=== PATIENT | male | born 1995 | race African-American/Black ===

== ENCOUNTER 2019-08-21 01:59 | Emergency (ER) | payer MEDICAID ==
[~2019-08-21] VITALS: Ht 180.3 cm; Wt 158.8 kg
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
[2019-08-21] MEDS ORDERED: ALBUTEROL2.5 MG/3 M INH (02:08)
[2019-08-21] MEDS ORDERED: Ketorolac 60mg Inj IM ONE (02:30)
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
[2019-08-21 03:08] VITALS: BP 138/89
[2019-08-21] MEDS ORDERED: ROBAXIN-500MG ORAL (04:19)
--- NOTE | 2019-08-21 04:20 | NUR ---
ED Nurse Note: pt went for ct via wheelchair
--- NOTE | 2019-08-21 04:58 | NUR ---
ED Nurse Note: pt back from c t via wheelchair
[2019-08-21 05:00] VITALS: BP 141/88
--- NOTE | 2019-08-21 05:00 | NUR ---
ED Nurse Note: pt is calm and sleeping, vss, nad.
--- NOTE | 2019-08-21 05:55 | Diagnostic Imaging Report ---
Indication: Back pain Technique: Continuous helical transaxial imaging of the lumbar spine was obtained. Coronal 2-D reformats were also obtained. Study obtained in a Siemens sensation [address] Total Dose length Product (DLP): 932.[address] Dose Index Volume (CTDIvol): 20.9 mGy Comparison: None Findings: The study is significantly degraded by motion. Subtle nondisplaced fractures may be missed on this study. There is no obvious evidence of an acute fracture or malalignment. Height and configuration of the vertebral bodies and intervertebral discs are grossly within normal limits. The facets are grossly unremarkable. There is no soft tissue swelling. Impression: Negative lumbar spine CT. Significant limitation due to motion. [facility] has communicated the preliminary results to the Emergency Department. Their findings are largely concordant with this report. The CT scanner at [facility] is accredited by the [employer] and the scans are performed using dose optimization techniques as appropriate to a performed exam including Automatic Exposure control.
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
[2019-08-21 06:10] VITALS: BP 141/88
--- NOTE | 2019-08-21 06:10 | NUR ---
ER DISCHARGE NOTE: Patient is cleared to be discharged per ERMD, pt is aox4, on room air, with stable vital signs. pt was given dc and prescription instructions, pt was able to verbalize understanding, pt id band removed without complications. pt is able to ambulate with steady gait. pt took all belongings.
== END 2019-08-21 06:10 | disposition home or self-care (01) ==
LOC: EMR 02:23
DX: S39.012A Strain of muscle, fascia and tendon of lower back, initial encounter (principal); V43.52XA Car driver injured in collision with other type car in traffic accident, initial encounter; Y92.411 Interstate highway as the place of occurrence of the external cause; J45.909 Unspecified asthma, uncomplicated
CPT/HCPCS: 72128; 72131; 96372; Z7502; 99284

== ENCOUNTER 2019-09-08 16:14 | Inpatient (IN) | payer MEDICAID ==
[~2019-09-08] VITALS: Ht 182.9 cm; Wt 158.8 kg
[~2019-09-08 16:14] MED LIST: ALBUTEROL2.5 MG/3 M INH; ROBAXIN-500MG ORAL
--- NOTE | 2019-09-08 16:45 | NUR ---
ED Nurse Note: Pt walked into ED w/ c/ flu like symptoms. Pt has nausea, vomting, diarrhea, body aches, chills, since last night. P states he has vomited over 12x. Pt is alert and orientedx4, ambulatory. Pt is set up on monitor. Pt has not been out of [place] in past month.
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
[2019-09-08 16:55] VITALS: BP 133/87
[2019-09-08] MEDS ORDERED: Metoclopramide 10mg/2ml Inj IVP ONE (17:00)
[2019-09-08] MEDS ORDERED: DiphenhydrAMINE 50mg/ml Inj IVP ONE (17:00)
[2019-09-08 17:58] LABS: EOSINOPHILS % (AUTO) 2.3 % (0.0-3.0); HEMATOCRIT 45.6 % (42.0-52.0); HEMOGLOBIN 14.2 G/DL (14.2-18.0); LYMPHOCYTES % (AUTO) 17.6 % (20.0-45.0); MEAN CORPUSCULAR VOLUME 83 FL (80-99); MONOCYTES % (AUTO) 3.9 % (1.0-10.0); NEUTROPHILS % (AUTO) 75.2 % (45.0-75.0); PLATELET COUNT 108 K/UL (150-450); RED BLOOD COUNT 5.46 M/UL (4.70-6.10); RED CELL DISTRIBUTION WIDTH 14.4 % (11.6-14.8)
[2019-09-08 18:07] LABS: ANION GAP 4 mmol/L (5-15); BLOOD UREA NITROGEN 10 mg/dL (7-18); CALCIUM 8.9 MG/DL (8.5-10.1); CARBON DIOXIDE 33 MMOL/L (21-32); CHLORIDE 102 MMOL/L (98-107); CREATININE 1.2 MG/DL (0.55-1.30); POTASSIUM 4.7 MMOL/L (3.5-5.1); SODIUM 139 MMOL/L (136-145)
[2019-09-08 18:11] LABS: ALANINE AMINOTRANSFERASE 49 U/L (12-78); ALBUMIN 3.4 G/DL (3.4-5.0); ALBUMIN/GLOBULIN RATIO 0.8 (1.0-2.7); ALKALINE PHOSPHATASE 107 U/L (46-116); ASPARTATE AMINO TRANSFERASE 33 U/L (15-37); BILIRUBIN,TOTAL 0.3 MG/DL (0.2-1.0)
[2019-09-08] MEDS ORDERED: Albuterol/Ipratropium 3ml neb HHN ONE (18:30)
[2019-09-08 18:52] LABS: APPEARANCE,URINE CLEAR; BILIRUBIN, URINE NEGATIVE (NEGATIVE); COLOR,URINE PALE YELLOW; GLUCOSE, URINE (UA) NEGATIVE (NEGATIVE); KETONES,URINE NEGATIVE (NEGATIVE); LEUKOCYTE ESTERASE ,URINE NEGATIVE (NEGATIVE); NITRITE,URINE NEGATIVE (NEGATIVE); PH,URINE 6 (4.5-8.0); PROTEIN,URINE 1+ (NEGATIVE); UROBILINOGEN,URINE NORMAL MG/DL (0.0-1.0)
[2019-09-08 19:20] VITALS: BP 130/82
--- NOTE | 2019-09-08 19:30 | NUR ---
ED Nurse Note: Recieved report from am nurse to resume care, pt in bed resting, appears to be sleeping, arouses to tactile stimuli, pt has low saturation at 88, placed on o2 3l n/c, pt complains and takes off equipment, IV site patent, pt denies cp or any pain, will resume care as ordered and closlely monitor.
[2019-09-08 20:00] VITALS: BP 169/101
[2019-09-08] MEDS ORDERED: Solu-MEDROL 125mg Inj IVP ONE (20:30)
[2019-09-08] MEDS: Albuterol ud Inhalation HHN SCH ×4 (20:48→21:15)
[2019-09-08 21:00] VITALS: BP 156/96
--- NOTE | 2019-09-08 21:00 | NUR ---
ED Nurse Note: Pt continues to rest in bed, awakens often, pt remains with low saturation levels, MD aware, pt started on bipap for respiratory distress, will continue to closely monitor.
--- NOTE | 2019-09-08 21:36 | Diagnostic Imaging Report ---
EXAM: XR Chest, 1 View CLINICAL HISTORY: ALOC TECHNIQUE: Frontal view of the chest. COMPARISON: No relevant prior studies available. FINDINGS: Lungs: Reduced lung volumes with accentuation of bronchovascular markings. Pleural space: Unremarkable. No pneumothorax. Heart: Cardiomegaly. Mediastinum: Unremarkable. Bones/joints: No acute fracture. IMPRESSION: Reduced lung volumes with accentuation of bronchovascular markings.
--- NOTE | 2019-09-08 22:10 | NUR ---
ED Nurse Note: Pt continues to be restless and taking off bipap, states he cant tolerate, pt placed on nrb mask instead, remains on cardiac monitoring, IV site intact and patent, pt is awake and alert, speaking to staff, MD spoke with pt about prognosis and plan of care, pt is very upset that MD informed him of intubation, pt stating he does not want to be intubated, pt has no sob but has low sats at times, pt sleeps with mouth open and states he needs cpap machine, pt mother also states same, will continue to monitor and prepare for hospital admission.
[2019-09-08] MEDS ORDERED: Ketamine HCl 50mg/ml 1ml Syr IV ONE ×2 (22:30→23:45)
[2019-09-08 22:50] VITALS: BP 165/103
--- NOTE | 2019-09-08 23:29 | NUR ---
Patients father called , left his phone # [phone] for to call him. aware.
[2019-09-08] MEDS ORDERED: Azithromycin 500 MG in D5W 275 ML IVPB ONE (23:30)
[2019-09-08] MEDS ORDERED: cefTRIAXone 2 GM in D5W 55 ML IVPB ONE (23:30)
[2019-09-08] MEDS ORDERED: Ketamine HCl 50mg/ml 1ml Syr ONE (23:31)
[2019-09-08 23:45] VITALS: BP 156/93
[2019-09-08] MEDS ORDERED: Rocuronium Bromide 50mg/5ml Inj IV ONE (23:45)
--- NOTE | 2019-09-08 23:45 | NUR ---
ED Nurse Note: Pt intubated by MD, immediately started on propofol drip at 30mcg per MD verbal order at bedside, started as ordered per protocol, pt with RASS score of -2, will continue to closely monitor and titrate as needed, pt v/s stable and IV site patent, remains on constant cardiac monitoring and respiratory isolation precautions.
--- NOTE | 2019-09-08 23:45 | NUR ---
ED Nurse Note: Pt has been intubated, et-tube size 7.5 at 24 cm lip line, post x-ray compl Addendum: 09/09/19 at 0602 by ENIGHTINGA ED Nurse Note: Pt has been intubated, et-tube size 7.5, lip line at 24cm, pt tolerating well, o2 sat=99%, pt is also started on IV propofol for sedation, tolerating well, post x-ray completed, also placed second IV line in left AC area, pt is sedated but is awake and oriented, MD spoke with pt in detail before procedure explaining plan of care, pt tolerating well, pt shakes head no to pain, remains on cardiac monitoring, will continue to closely monitor, pt is ICU status and placed on respiratory precautions.
[2019-09-09] VITALS (47 sets, daily range): BP systolic 90–172; BP diastolic 50–125
--- NOTE | 2019-09-09 00:28 | Diagnostic Imaging Report ---
EXAM: XR Chest, 1 View CLINICAL HISTORY: S/P INTUB TECHNIQUE: Frontal view of the chest. COMPARISON: No relevant prior studies available. FINDINGS: Lungs: Pulmonary venous congestion within the lungs. Bilateral heterogeneous airspace opacities which appear somewhat linear in the right upper and lower lung rodríguez. Pleural space: No pleural effusion. No pneumothorax. Heart: Prominent cardiac silhouette likely accentuated by the technique. Tubes, lines and devices: The endotracheal tube terminates approximately 4.3 cm above the rach. IMPRESSION: 1. Appropriately positioned endotracheal tube. 2. Pulmonary venous congestion with bilateral airspace opacities which may represent edema, atelectasis, or infection.
--- NOTE | 2019-09-09 00:45 | NUR ---
ED Nurse Note: Pt remains with oral intubations, tolerating well, also continuing with propofol at 30mcg and tolerating well with RASS score of -2, will continue to closely monitor per protocol, IV site patent, v/s stable, will continue to monitor and prepare for admission.
--- NOTE | 2019-09-09 02:00 | NUR ---
ED Nurse Note: Pt remains on isolation precautions for r/o of negron virus, all swabs and specimens collected and sent per protocol, also sent repeat lactic acid level, pt remains intubated with sedation, IV antibiotics given and no s/s of adverse reaction noted, pt has periods where he is more awake and alert, pt is attempting to communicate verbally, uses sign alphabets and lip reading, pt has ICU bed, will preapre for admission.
--- NOTE | 2019-09-09 02:45 | NUR ---
ED Nurse Note: Propofol continuing at 30mcg, tolerating well, RASS score at -2, v/s stable and IV site patent, will continue to closely monitor and prepare for hospital admission.
--- NOTE | 2019-09-09 03:45 | NUR ---
ED Nurse Note: Placed call to ICU unit for pt admisison, spoke with charge nurse rk whom informed can not take pt now, they were not aware of pt status, charge nurse in ED aware and waiting for return call for admission to floor, pt remains with respiratory isolation precautions.
--- NOTE | 2019-09-09 04:39 | NUR ---
Patients mother called, speaking with .
--- NOTE | 2019-09-09 04:45 | NUR ---
ED Nurse Note: RASS score remains at -2, pt tolerating drip well and remains intubated, v/s stable and o2 sat, will continue with close, continuous monitoring, pt IV site is intact and patent, no swelling or s/s of infiltration noted.
--- NOTE | 2019-09-09 05:45 | NUR ---
ED Nurse Note: No acute changes or increased distress, propofol infusing at 30mcg and pt tolerating well, IV site patent and v/s stable, nad or changes noted, will continue to monitor.
--- NOTE | 2019-09-09 06:00 | NUR ---
ED Nurse Note: Pt in bed more awake and alert, pt attempting to get up and pulled out IV line, pt is communication he does not want tube, explained to pt reason and prognosis and plan of care, pt became very agitated and pulled out IV line, pt IV propofol dose increased per protocol, pt resting quietly, will continue to closely montior and remain on respiratory isolation precautions.
--- NOTE | 2019-09-09 07:19 | NUR ---
ED Nurse Note: Pt taken to floor unit for admission, no changes or distress noted, pt remains intubated, all belonging with pt, nad noted during pt transport.
--- NOTE | 2019-09-09 07:40 | NUR ---
HAND-OFF: Received report from SERENA Mcclure from ER, then given report to SERENA Cat - ICU oncoming nurse.
--- NOTE | 2019-09-09 08:00 | NUR ---
NURSE NOTES: Received report on new admission from Matt LYONS. Pt was admitted/transferred from ER via [facility] to ICU, while on Propofol drip 30mcg/kg/min. Pt is restless, agitated, noncompliant, attempting to reach/pull out ET tube. Bilateral soft wrist restraints are placed on pt to prevent self extubation. Pt is orally intubated, ETT 7.5 at 24cm at right lipline with vent settings AC18, VT600, Peep 5.0, FIO2 35% at 95% with diminished lung sounds. desk monitor displays ST, with heart rate fluctuating from 110-120. Temp 99.2F axillary. Propofol drip is infusing via peripheral IV access on right AC #18G. Abdomen is large, round, soft, nontender to touch with hypoactive bowel sounds. Howard catheter is present, draining cloudy, dark yellow urine. Skin is intact. Pt's belonging's list was checked and signed by Matt RN, along with CONVERTER OPERATOR. Bed is locked, HOB at 30 degrees, three side rails up, and call light placed within easy reach. Will contact MD for new admission orders and follow plan of care.
[2019-09-09] MEDS: Pantoprazole Inj IVP SCH (09:37)
[2019-09-09] MEDS: Heparin 5000 units/ml inj SUBQ SCH ×2 (09:38→20:38)
--- NOTE | 2019-09-09 10:00 | NUR ---
NURSE NOTES: Pt arrived to ICU with Propofol drip that was started in ER and bottle finished at 0829. At 0829, 1st replacement bottle of propofol was removed from the pyxis and was scanned late at 0939 due to scanner inside pt's room not working, (pt is on strict COVID-19 isolation). Official order was received from Dr Gardner to maintain pt on Propofol until further notice from MD. Triglyceride levels will be monitored. Additional admission orders were received from Jj, per Dr Chen, who referred requests to Dr Gardner. Pt was also seen by Dr Kirby at bedside. Orders were received to repeat ABGs and maintain AC vent settings from ER until further notice.
--- NOTE | 2019-09-09 11:00 | NUR ---
NURSE NOTES: Family of the patient called however were not as the EC on the patient. Mother insisted getting on the EC with dad and grandmother. Patient was woken up to confirm that he wanted to give consent to his family to speak on his medical condition. Patient was asked several times and was AAO x3. Patient gave consent to mother, father and grandmother. Noted on the chart.
--- NOTE | 2019-09-09 11:30 | Pulmonolgy Critical Care Note ---
Critical Care - Asmt/Plan Assessment/Plan: respiratory failure possible developing ARDS possible COVID 19 lymphopenia sinus tachycardia + tox screen PLAN vent support follow up ABG consider steroids IV antibiotics per ID d/w ID and will adjust add zithromax for now strict isolation critical Respiratory: CXR, ABG Cardiac: continue to monitor HR/BP Renal: F/U I&O Infectious Disease: check cultures, continue antibiotics Endocrine: monitor blood sugar Disposition: keep in ICU Time Spent (Minutes): 40 Discussed with: nurses, consultants Critical Care - Objective Last 24 Hour Vital Signs Date Time Temp Pulse Resp B/P (MAP) Pulse Ox O2 Delivery O2 Flow Rate FiO2 09/09/19 09:39 16 140/87 Mechanical Ventilator 35 09/09/19 09:00 115 18 35 09/09/19 07:13 114 20 96 Mechanical Ventilator 35 09/09/19 07:13 114 25 35 09/09/19 07:00 100.0 109 19 158/92 98 Bi-pap 35 09/09/19 06:00 100.0 109 19 158/92 98 Bi-pap 35 09/09/19 05:57 25 149/99 Bi-pap 35 09/09/19 05:34 125 25 35 09/09/19 02:00 98.8 104 16 159/91 95 Mechanical Ventilator 35 09/09/19 01:59 122 24 35 09/09/19 00:00 100.0 97 28 149/99 95 Bi-pap 35 09/08/19 23:54 136 28 35 09/08/19 23:45 24 149/99 Bi-pap 35 09/08/19 22:50 98.8 92 21 165/103 99 30 09/08/19 21:02 105 22 99 Bi-Pap 30 111 22 95 09/08/19 21:00 100.0 97 20 156/96 97 Bi-pap 30 09/08/19 20:55 105 22 99 Bi-Pap 30 108 21 96 09/08/19 20:37 108 22 94 30 09/08/19 20:00 100.2 106 24 169/101 98 Room Air 21 09/08/19 19:30 100.0 09/08/19 19:20 98.8 100 20 130/82 98 Room Air 09/08/19 19:10 105 22 99 Room Air 21 107 24 92 09/08/19 16:55 101 18 Room Air 99 09/08/19 16:55 98.8 101 18 133/87 99 Room Air 09/08/19 16:28 98.8 105 17 130/89 (103) Room Air Objective: WDWN intubated reduced breath sounds bilaterally without rhonchi or wheeze [id number] tachy without MRG NABS nontender no HSM no CCE sedated Micro: Microbiology Date/Time Source Procedure Growth Status 09/08/19 20:30 Nose - Final Complete 09/08/19 20:30 Nose - Final Complete 09/09/19 01:15 Rectum Received Accucheck: 108 Critical Care - Subjective ROS Limited/Unobtainable: Yes Interval Events: admitted via ER COVID19 isolation Condition: critical EKG Rhythm: Sinus Tachycardia FI02: 35 Vent Support Breath Rate: 18 Vent Support Mode: AC Vent Tidal Volume: 600 Sputum Amount: Small PEEP: 5.0 PIP: 34 I&O: Intake and Output 09/08/19 09/09/19 19:00 07:00 Intake Total 0 ml Balance 0 ml Intake Oral 0 ml Subjective: COVERAGE FOR DR ANDERSON CXR: Bilateral diffuse infiltrates ET-Tube: 7.0 ET Position: 24 Peter Kirby MD Sep 09, 2019 11:30
--- NOTE | 2019-09-09 12:37 | NUR ---
NURSE NOTES: Second bottle of propofol was removed from the pyxis and scanned, to replace the 1st finished bottle. Pt's temp is now 99.8F axillary. ABGs were drawn and results reported to Dr Kirby. Pt's mother visited ICU, and requested to take home pt's car keys and brown coin wallet.
--- NOTE | 2019-09-09 12:45 | Infectious Diseases Prog Note ---
Assessment/Plan Assessment/Plan ID consult was dictated Subjective Allergies: Coded Allergies: No Known Allergies (Unverified , 08/21/19) Objective Vital Signs Last 24 Hour Vital Signs Date Time Temp Pulse Resp B/P (MAP) Pulse Ox O2 Delivery O2 Flow Rate FiO2 09/09/19 12:37 18 139/111 Mechanical Ventilator 45 09/09/19 12:00 35 09/09/19 11:05 111 18 35 09/09/19 09:39 16 140/87 Mechanical Ventilator 35 09/09/19 09:00 115 18 35 09/09/19 08:00 35 09/09/19 07:13 114 20 96 Mechanical Ventilator 35 09/09/19 07:13 114 25 35 09/09/19 07:00 100.0 109 19 158/92 98 Bi-pap 35 09/09/19 07:00 35 09/09/19 06:00 100.0 109 19 158/92 98 Bi-pap 35 09/09/19 05:57 25 149/99 Bi-pap 35 09/09/19 05:34 125 25 35 09/09/19 02:00 98.8 104 16 159/91 95 Mechanical Ventilator 35 09/09/19 01:59 122 24 35 09/09/19 00:00 100.0 97 28 149/99 95 Bi-pap 35 09/08/19 23:54 136 28 35 09/08/19 23:45 24 149/99 Bi-pap 35 09/08/19 22:50 98.8 92 21 165/103 99 30 09/08/19 21:02 105 22 99 Bi-Pap 30 111 22 95 09/08/19 21:00 100.0 97 20 156/96 97 Bi-pap 30 09/08/19 20:55 105 22 99 Bi-Pap 30 108 21 96 09/08/19 20:37 108 22 94 30 09/08/19 20:00 100.2 106 24 169/101 98 Room Air 21 09/08/19 19:30 100.0 09/08/19 19:20 98.8 100 20 130/82 98 Room Air 09/08/19 19:10 105 22 99 Room Air 21 107 24 92 09/08/19 16:55 101 18 Room Air 99 09/08/19 16:55 98.8 101 18 133/87 99 Room Air 3/14/20 16:28 98.8 105 17 130/89 (103) Room Air Height (Feet): 6 Weight (Pounds): 358 Microbiology Date/Time Source Procedure Growth Status 09/08/19 20:30 Nose - Final Complete 09/08/19 20:30 Nose - Final Complete 09/09/19 01:15 Rectum Received Laboratory Tests Test 09/08/19 17:45 09/08/19 18:40 09/08/19 22:10 09/09/19 00:15 White Blood Count 14.0 K/UL (4.8-10.8) H Red Blood Count 5.46 M/UL (4.70-6.10) Hemoglobin 14.2 G/DL (14.2-18.0) Hematocrit 45.6 % (42.0-52.0) Mean Corpuscular Volume 83 FL (80-99) Mean Corpuscular Hemoglobin 26.0 PG (27.0-31.0) L Mean Corpuscular Hemoglobin Concent 31.2 G/DL (32.0-36.0) L Red Cell Distribution Width 14.4 % (11.6-14.8) Platelet Count 108 K/UL (150-450) L Mean Platelet Volume 10.3 FL (6.5-10.1) H Neutrophils (%) (Auto) 75.2 % (45.0-75.0) H Lymphocytes (%) (Auto) 17.6 % (20.0-45.0) L Monocytes (%) (Auto) 3.9 % (1.0-10.0) Eosinophils (%) (Auto) 2.3 % (0.0-3.0) Basophils (%) (Auto) 1.0 % (0.0-2.0) Sodium Level 139 MMOL/L (136-145) Potassium Level 4.7 MMOL/L (3.5-5.1) Chloride Level 102 MMOL/L (98-107) Carbon Dioxide Level 33 MMOL/L (21-32) H Anion Gap 4 mmol/L (5-15) L Blood Urea Nitrogen 10 mg/dL (7-18) Creatinine 1.2 MG/DL (0.55-1.30) Estimat Glomerular Filtration Rate > 60 mL/min (>60) Glucose Level 126 MG/DL (74-106) H Calcium Level 8.9 MG/DL (8.5-10.1) Magnesium Level 2.1 MG/DL (1.8-2.4) Total Bilirubin 0.3 MG/DL (0.2-1.0) Aspartate Amino Transf (AST/SGOT) 33 U/L (15-37) Alanine Aminotransferase (ALT/SGPT) 49 U/L (12-78) Alkaline Phosphatase 107 U/L (46-116) Total Protein 7.8 G/DL (6.4-8.2) Albumin 3.4 G/DL (3.4-5.0) Globulin 4.4 g/dL Albumin/Globulin Ratio 0.8 (1.0-2.7) L Triglycerides Level 86 MG/DL (30-150) Lipase 108 U/L (73-393) Urine Color Pale yellow Urine Appearance Clear Urine pH 6 (4.5-8.0) Urine Specific [place] 1.020 (1.005-1.035) Urine Protein 1+ (NEGATIVE) H Urine Glucose (UA) Negative (NEGATIVE) Urine Ketones Negative (NEGATIVE) Urine Blood Negative (NEGATIVE) Urine Nitrite Negative (NEGATIVE) Urine Bilirubin Negative (NEGATIVE) Urine Urobilinogen Normal MG/DL (0.0-1.0) Urine Leukocyte Esterase Negative (NEGATIVE) Urine RBC 0-2 /HPF (0 - 0) H Urine WBC 0-2 /HPF (0 - 0) Urine Squamous Epithelial Cells Few /LPF (NONE/OCC) Urine Bacteria Few /HPF (NONE) Urine Opiates Screen Negative (NEGATIVE) Urine Barbiturates Screen Negative (NEGATIVE) Phencyclidine (PCP) Screen Negative (NEGATIVE) Urine Amphetamines Screen Positive (NEGATIVE) H Urine Benzodiazepines Screen Negative (NEGATIVE) Urine Cocaine Screen Positive (NEGATIVE) H Urine Marijuana (THC) Screen Positive (NEGATIVE) H Arterial Blood pH 7.173 (7.350-7.450) Arterial Blood Partial Pressure CO2 92.4 mmHg (35.0-45.0) *H Arterial Blood Partial Pressure O2 71.1 mmHg (75.0-100.0) L Arterial Blood HCO3 33.2 mmol/L (22.0-26.0) H Arterial Blood Oxygen Saturation 90.7 % (95-100) L Arterial Blood Base Excess 1.4 (-2-2) Jorge Test Positive Lactic Acid Level 2.10 mmol/L (0.4-2.0) H Test 09/09/19 00:20 09/09/19 01:30 09/09/19 12:16 Lactic Acid Level 2.00 mmol/L (0.66-2.22) RSV Nasal Swab Pending Arterial Blood pH 7.370 (7.350-7.450) Arterial Blood Partial Pressure CO2 55.9 mmHg (35.0-45.0) *H Arterial Blood Partial Pressure O2 57.5 mmHg (75.0-100.0) L Arterial Blood HCO3 31.6 mmol/L (22.0-26.0) H Arterial Blood Oxygen Saturation 90.4 % (95-100) L Arterial Blood Base Excess 4.7 (-2-2) H Jorge Test Positive Current Medications Medications (Trade) Dose Ordered Sig/Tamara Route PRN Reason Start Time Stop Time Status Last Admin Dose Admin Albuterol Sulfate (Proventil) 5 mg Q15M HHN 09/08/19 20:30 09/13/19 20:29 09/08/19 21:02 Ceftriaxone Sodium 1 gm/ Dextrose 55 ml @ 110 mls/hr Q24H IVPB 09/09/19 23:00 09/16/19 22:59 Heparin Sodium (Porcine) (Heparin 5000 units/ml) 5,000 units EVERY 12 HOURS SUBQ 09/09/19 09:00 10/24/19 08:59 09/09/19 09:38 Morphine Sulfate (Morphine Sulfate) 4 mg Q4H PRN IVP PAIN 4-10 09/09/19 09:00 09/16/19 08:59 Ondansetron HCl (Zofran) 4 mg Q6H PRN IVP Nausea & Vomiting 09/09/19 09:00 10/09/19 08:59 Pantoprazole (Protonix) 40 mg DAILY IVP 09/09/19 09:30 10/09/19 09:29 09/09/19 09:37 Propofol 100 ml @ 0 mls/hr Q24H IV 09/09/19 09:00 09/11/19 08:59 09/09/19 12:37 Sodium Chloride 1,000 ml @ 100 mls/hr Q10H IV 09/09/19 09:30 10/09/19 09:29 09/09/19 09:40 Marty Rosales MD Sep 09, 2019 12:45
--- NOTE | 2019-09-09 13:00 | NUR ---
NURSE NOTES: Propofol drip was titrated up to 50mcg/kg/min to maintain RASS score of -2. Pt was noted to be very agitated. Pt ripped his bilateral soft wrist restraints off, and attempted to reach for ET tube.
[2019-09-09] MEDS ORDERED: NS 275ml ONE (14:06)
[2019-09-09] MEDS ORDERED: Tubing IV Secondary IV ONE (14:06)
--- NOTE | 2019-09-09 14:20 | NUR ---
NURSE NOTES: Contacted Dr Kirby with the ABG results. Per MD wants FIO2 titrated to 40%. Orders have been placed for new vent settings.
[2019-09-09] MEDS: Morphine Sulfate 4mg/ml Inj (IV USE ONLY) IVP PRN (14:47)
--- NOTE | 2019-09-09 14:48 | NUR ---
NURSE NOTES: Pt was administered Morphine 4mg IVP per PRN order for severe pain, as he is noted to have facial grimacing, clenched fists, and ST on cardiac catheterization technologist. Will reassess.
[2019-09-09] MEDS ORDERED: Lidocaine 1% 10mg/ml/Epi 0.005mg/ml 30ml vial INJ ONE (15:04)
--- NOTE | 2019-09-09 15:26 | History & Physical ---
History of Present Illness General Date patient seen: Sep 09, 2019 Reason for Hospitalization: acute respiratory failure Present Illness HPI Patient is a 24 year old, morbidly obese, KRISTIAN, asthma, male presenting with generalized weakness, nausea, vomiting, respiratory failure. 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 Allergies: Coded Allergies: No Known Allergies (Unverified , 08/21/19) Medication History Scheduled Methocarbamol* (Robaxin-500*), 500 MG ORAL TID Scheduled PRN Albuterol Sulfate* (Albuterol Sulfate Hhn*), 3 ML INH Q6H PRN for Shortness of Breath, (Reported) Patient History Healthcare decision maker Resuscitation status Advanced Directive on File Review of Systems Review of Symptoms ROS unable to be obtained, patient intubated, sedatedd Physical Exam Physical Exam General appearance: intubated, sedated, morbidly obese Head: AT, NC. Throat: ET Tube in place. Neck: supple, symmetrical, trachea midline, no adenopathy, thyroid: not enlarged, symmetric, no tenderness/mass/nodules, no carotid bruit and no JVD Lungs: coarse breath sounds anteriorly Heart: regular rate and rhythm, S1, S2 normal, no murmur, click, rub or gallop Abdomen: soft, non-tender. Bowel sounds normal. No masses, no organomegaly Extremities: extremities normal, atraumatic, no cyanosis or edema Pulses: 2+ and symmetric Skin: Skin color, texture, turgor normal. No rashes or lesions Neurologic: sedated, opens eyes to stimuli . Last 24 Hour Vital Signs Date Time Temp Pulse Resp B/P (MAP) Pulse Ox O2 Delivery O2 Flow Rate FiO2 09/09/19 15:02 116 18 35 09/09/19 14:48 18 139/111 Mechanical Ventilator 45 09/09/19 13:00 121 24 35 09/09/19 12:37 18 139/111 Mechanical Ventilator 45 09/09/19 12:00 122 16 144/125 (131) 93 09/09/19 12:00 35 09/09/19 11:30 119 12 152/95 (114) 95 09/09/19 11:05 111 18 35 09/09/19 11:00 113 18 151/101 (118) 92 09/09/19 10:30 115 18 155/123 (134) 95 09/09/19 10:00 117 17 144/96 (112) 96 09/09/19 09:39 16 140/87 Mechanical Ventilator 35 09/09/19 09:00 121 17 144/91 (108) 95 09/09/19 09:00 115 18 35 09/09/19 08:30 116 12 172/105 (127) 92 09/09/19 08:00 35 09/09/19 08:00 116 12 152/94 (113) 92 09/09/19 07:30 111 18 166/87 (113) 94 09/09/19 07:13 114 20 96 Mechanical Ventilator 35 09/09/19 07:13 114 25 35 09/09/19 07:00 99.2 114 22 166/87 (113) 94 09/09/19 07:00 100.0 109 19 158/92 98 Bi-pap 35 09/09/19 07:00 35 09/09/19 06:00 100.0 109 19 158/92 98 Bi-pap 35 09/09/19 05:57 25 149/99 Bi-pap 35 09/09/19 05:34 125 25 35 09/09/19 02:00 98.8 104 16 159/91 95 Mechanical Ventilator 35 09/09/19 01:59 122 24 35 09/09/19 00:00 100.0 97 28 149/99 95 Bi-pap 35 09/08/19 23:54 136 28 35 09/08/19 23:45 24 149/99 Bi-pap 35 09/08/19 22:50 98.8 92 21 165/103 99 30 09/08/19 21:02 105 22 99 Bi-Pap 30 111 22 95 09/08/19 21:00 100.0 97 20 156/96 97 Bi-pap 30 09/08/19 20:55 105 22 99 Bi-Pap 30 108 21 96 09/08/19 20:37 108 22 94 30 09/08/19 20:00 100.2 106 24 169/101 98 Room Air 21 09/08/19 19:30 100.0 09/08/19 19:20 98.8 100 20 130/82 98 Room Air 09/08/19 19:10 105 22 99 Room Air 21 107 24 92 09/08/19 16:55 101 18 Room Air 99 09/08/19 16:55 98.8 101 18 133/87 99 Room Air 09/08/19 16:28 98.8 105 17 130/89 (103) Room Air Intake and Output 09/08/19 09/09/19 19:00 07:00 Intake Total 0 ml Balance 0 ml Intake Oral 0 ml Laboratory Tests Test 09/08/19 17:45 09/08/19 18:40 09/08/19 22:10 09/09/19 00:15 White Blood Count 14.0 K/UL (4.8-10.8) H Red Blood Count 5.46 M/UL (4.70-6.10) Hemoglobin 14.2 G/DL (14.2-18.0) Hematocrit 45.6 % (42.0-52.0) Mean Corpuscular Volume 83 FL (80-99) Mean Corpuscular Hemoglobin 26.0 PG (27.0-31.0) L Mean Corpuscular Hemoglobin Concent 31.2 G/DL (32.0-36.0) L Red Cell Distribution Width 14.4 % (11.6-14.8) Platelet Count 108 K/UL (150-450) L Mean Platelet Volume 10.3 FL (6.5-10.1) H Neutrophils (%) (Auto) 75.2 % (45.0-75.0) H Lymphocytes (%) (Auto) 17.6 % (20.0-45.0) L Monocytes (%) (Auto) 3.9 % (1.0-10.0) Eosinophils (%) (Auto) 2.3 % (0.0-3.0) Basophils (%) (Auto) 1.0 % (0.0-2.0) Sodium Level 139 MMOL/L (136-145) Potassium Level 4.7 MMOL/L (3.5-5.1) Chloride Level 102 MMOL/L (98-107) Carbon Dioxide Level 33 MMOL/L (21-32) H Anion Gap 4 mmol/L (5-15) L Blood Urea Nitrogen 10 mg/dL (7-18) Creatinine 1.2 MG/DL (0.55-1.30) Estimat Glomerular Filtration Rate > 60 mL/min (>60) Glucose Level 126 MG/DL (74-106) H Calcium Level 8.9 MG/DL (8.5-10.1) Magnesium Level 2.1 MG/DL (1.8-2.4) Total Bilirubin 0.3 MG/DL (0.2-1.0) Aspartate Amino Transf (AST/SGOT) 33 U/L (15-37) Alanine Aminotransferase (ALT/SGPT) 49 U/L (12-78) Alkaline Phosphatase 107 U/L (46-116) Total Protein 7.8 G/DL (6.4-8.2) Albumin 3.4 G/DL (3.4-5.0) Globulin 4.4 g/dL Albumin/Globulin Ratio 0.8 (1.0-2.7) L Triglycerides Level 86 MG/DL (30-150) Lipase 108 U/L (73-393) Urine Color Pale yellow Urine Appearance Clear Urine pH 6 (4.5-8.0) Urine Specific [place] 1.020 (1.005-1.035) Urine Protein 1+ (NEGATIVE) H Urine Glucose (UA) Negative (NEGATIVE) Urine Ketones Negative (NEGATIVE) Urine Blood Negative (NEGATIVE) Urine Nitrite Negative (NEGATIVE) Urine Bilirubin Negative (NEGATIVE) Urine Urobilinogen Normal MG/DL (0.0-1.0) Urine Leukocyte Esterase Negative (NEGATIVE) Urine RBC 0-2 /HPF (0 - 0) H Urine WBC 0-2 /HPF (0 - 0) Urine Squamous Epithelial Cells Few /LPF (NONE/OCC) Urine Bacteria Few /HPF (NONE) Urine Opiates Screen Negative (NEGATIVE) Urine Barbiturates Screen Negative (NEGATIVE) Phencyclidine (PCP) Screen Negative (NEGATIVE) Urine Amphetamines Screen Positive (NEGATIVE) H Urine Benzodiazepines Screen Negative (NEGATIVE) Urine Cocaine Screen Positive (NEGATIVE) H Urine Marijuana (THC) Screen Positive (NEGATIVE) H Arterial Blood pH 7.173 (7.350-7.450) Arterial Blood Partial Pressure CO2 92.4 mmHg (35.0-45.0) *H Arterial Blood Partial Pressure O2 71.1 mmHg (75.0-100.0) L Arterial Blood HCO3 33.2 mmol/L (22.0-26.0) H Arterial Blood Oxygen Saturation 90.7 % (95-100) L Arterial Blood Base Excess 1.4 (-2-2) Jorge Test Positive Lactic Acid Level 2.10 mmol/L (0.4-2.0) H Test 09/09/19 00:20 09/09/19 01:30 09/09/19 12:16 Lactic Acid Level 2.00 mmol/L (0.66-2.22) RSV Nasal Swab Pending Arterial Blood pH 7.370 (7.350-7.450) Arterial Blood Partial Pressure CO2 55.9 mmHg (35.0-45.0) *H Arterial Blood Partial Pressure O2 57.5 mmHg (75.0-100.0) L Arterial Blood HCO3 31.6 mmol/L (22.0-26.0) H Arterial Blood Oxygen Saturation 90.4 % (95-100) L Arterial Blood Base Excess 4.7 (-2-2) H Jorge Test Positive Microbiology Date/Time Source Procedure Growth Status 09/08/19 20:30 Nose - Final Complete 09/08/19 20:30 Nose - Final Complete 09/09/19 01:15 Rectum Received Height (Feet): 6 Weight (Pounds): 358 Medications Current Medications Medications (Trade) Dose Ordered Sig/Tamara Route PRN Reason Start Time Stop Time Status Last Admin Dose Admin Ceftriaxone Sodium 1 gm/ Dextrose 55 ml @ 110 mls/hr Q24H IVPB 09/09/19 23:00 09/16/19 22:59 Heparin Sodium (Porcine) (Heparin 5000 units/ml) 5,000 units EVERY 12 HOURS SUBQ 09/09/19 09:00 10/24/19 08:59 09/09/19 09:38 Morphine Sulfate (Morphine Sulfate) 4 mg Q4H PRN IVP PAIN 4-10 09/09/19 09:00 09/16/19 08:59 09/09/19 14:47 Ondansetron HCl (Zofran) 4 mg Q6H PRN IVP Nausea & Vomiting 09/09/19 09:00 10/09/19 08:59 Pantoprazole (Protonix) 40 mg DAILY IVP 09/09/19 09:30 10/09/19 09:29 09/09/19 09:37 Propofol 100 ml @ 0 mls/hr Q24H IV 09/09/19 09:00 09/11/19 08:59 09/09/19 14:48 Sodium Chloride 1,000 ml @ 100 mls/hr Q10H IV 09/09/19 09:30 10/09/19 09:29 09/09/19 09:40 Assessment/Plan Status: stable, not improved, unchanged Diagnosis Seltzer I: Mr. Fournier is a 24 year old M w/ hx of asthma, morbid obesity, KRISTIAN, presenting with weakness, respiratory failure, intubated. #Acute hypoxic, hypercapneic respiratory failure, requiring intubation. #COVID-19 rule out. #ARDS #Sepsis -Intubated. Continue ventilator therapy. -Propofol gtt for sedation. -Wean off vent settings as tolerated -Appreciate pulmonology recommendations. -ABG initially 7.173 with pCO2 of 92.4, O2 of 71.1, improved to 7.37/55.9/57.5 with ventilator. -Ceftriaxone/azithromycin (09/07 -) -Appreciate ID recs. -Steroids. -f/u Covid testing. Isolation in the meantime. #Morbid obesity #KRISTIAN -CPAP outpatient. -Weight loss counseling. #Substance abuse Amphetamine, cocaine, THC positive on urine. -counseling. I spent 76 minutes on this patient's case, and 36 mins dedicated to critical care. Critical Care Services performed include: Telemetry review Hemodynamic measurement interpretation Lbaoratory neptali review and interpretation Radiology image review and interpretation Interpretation of ABG's Review, management of ventilator settings Discussion of patient's care with ICU team, ICU nursing staff and consulting services. [facility] Hospital declaration INPATIENT level of care is warranted for this patient because patient is a 89 year old with who presents with suspicion of . I have a high level of concern because . Patient is at high risk for . Plan of care/treatment include . Patient care is expected to be greater than 2 midnights. OBSERVATION level of care is warranted for this patient. Patient is a 89 year old with who presents with . Patient will be admitted for 1 midnight, but if additional night(s) is/are necessary, patient will be converted to inpatient status for the entire hospitalization Disposition: Once the patient is stable to leave the hospital, I anticipate the patient will likely be discharged to the following environment: Estimated discharge date: I spent 70 minutes on this patient's case, and minutes was dedicated to counseling and/or care coordination. MIPS (Merit-based Incentive Payment System) Applicable CPT: 29428, 23728 CHECK ALL THAT ARE MET: Measure #5 (CHF): All ages. Prescribe GOLDIE/ARB upon discharge for patients with left ventricular systolic dysfunction. If not, the reason is clearly documented in the medical chart. Measure #8 (CHF): All ages. Prescribe a beta christiana upon discharge for patients with left ventricular systolic dysfunction. If not, the reason is clearly documented in the medical chart. Measure #47 Advance care plan or surrogate decision maker documented in the medical record. Measure #130 The provider has documented, updated, or reviewed the patients current medication list and has documented it in the patients note. Measure #374 (All): Send report to referring provider. Measure #407(Sepsis due to MSSA bacteremia): Age 18+ Patient treated with a beta-lactam antibiotic (Nafcillin, Oxacillin or Cefazolin) as definitive therapy. MEDICAL COMPLEXITY High complexity medical decision making (need 2/3 categories) Problem - need 4 points Acute/new problem with new plan for workup (4 points, 1 max) Acute/new problem without additional workup (3 points, 1 max) Unstable chronic problem actively being managed (2 point each, 2 max) Stable chronic problem actively being managed (1 point each, 2 max) Self-limited/transient process (constipation, muscle ache, etc) (1 point each , 2 max) Data - need 4 points Reviewed labs/imaging studies (1 points, 2 max) Independent review of imaging (EKG, xrays, etc) (2 points, 2 max) Discussed case with consult/other MD/RN (2 points, 2 max) High Risk - qualify if have one of the following: Severe exacerbation of acute problem, acute mental status change, IV narcotics , monitoring drug levels (vancomycin, INR, tacrolimus etc) Aidan Chen MD Sep 09, 2019 15:26
[2019-09-09] MEDS ORDERED: Lidocaine 1% Plain 30 ml INJ ONE (15:30)
--- NOTE | 2019-09-09 15:30 | NUR ---
NURSE NOTES: VS remain stable post Morphine administration per PRN order. Pt is resting comfortably, at -2 light sedation per RASS score, while maintained on Propofol at 40mcg/kg/min.
--- NOTE | 2019-09-09 16:17 | Emergency Room Report ---
Physical Exam Call to start CVP. Last 24 Hour Vital Signs Date Time Temp Pulse Resp B/P (MAP) Pulse Ox O2 Delivery O2 Flow Rate FiO2 09/09/19 15:02 116 18 35 09/09/19 14:48 18 139/111 Mechanical Ventilator 45 09/09/19 13:00 121 24 35 09/09/19 12:37 18 139/111 Mechanical Ventilator 45 09/09/19 12:00 122 16 144/125 (131) 93 09/09/19 12:00 35 09/09/19 11:30 119 12 152/95 (114) 95 09/09/19 11:05 111 18 35 09/09/19 11:00 113 18 151/101 (118) 92 09/09/19 10:30 115 18 155/123 (134) 95 09/09/19 10:00 117 17 144/96 (112) 96 09/09/19 09:39 16 140/87 Mechanical Ventilator 35 09/09/19 09:00 121 17 144/91 (108) 95 09/09/19 09:00 115 18 35 09/09/19 08:30 116 12 172/105 (127) 92 09/09/19 08:00 35 09/09/19 08:00 116 12 152/94 (113) 92 09/09/19 07:30 111 18 166/87 (113) 94 09/09/19 07:13 114 20 96 Mechanical Ventilator 35 09/09/19 07:13 114 25 35 09/09/19 07:00 99.2 114 22 166/87 (113) 94 09/09/19 07:00 100.0 109 19 158/92 98 Bi-pap 35 09/09/19 07:00 35 09/09/19 06:00 100.0 109 19 158/92 98 Bi-pap 35 09/09/19 05:57 25 149/99 Bi-pap 35 09/09/19 05:34 125 25 35 09/09/19 02:00 98.8 104 16 159/91 95 Mechanical Ventilator 35 09/09/19 01:59 122 24 35 09/09/19 00:00 100.0 97 28 149/99 95 Bi-pap 35 09/08/19 23:54 136 28 35 09/08/19 23:45 24 149/99 Bi-pap 35 09/08/19 22:50 98.8 92 21 165/103 99 30 09/08/19 21:02 105 22 99 Bi-Pap 30 111 22 95 09/08/19 21:00 100.0 97 20 156/96 97 Bi-pap 30 09/08/19 20:55 105 22 99 Bi-Pap 30 108 21 96 09/08/19 20:37 108 22 94 30 09/08/19 20:00 100.2 106 24 169/101 98 Room Air 21 09/08/19 19:30 100.0 09/08/19 19:20 98.8 100 20 130/82 98 Room Air 09/08/19 19:10 105 22 99 Room Air 21 107 24 92 09/08/19 16:55 101 18 Room Air 99 09/08/19 16:55 98.8 101 18 133/87 99 Room Air 09/08/19 16:28 98.8 105 17 130/89 (103) Room Air Sp02 EP Interpretation: reviewed, normal General Appearance: obese, other - Intubated but awake and conversant with one hand to sign language Head: normocephalic, atraumatic Eyes: bilateral eye normal inspection, bilateral eye PERRL, bilateral eye EOMI ENT: moist mucus membranes, other - ET tube with leak Neck: full range of motion, supple Respiratory: crackles Cardiovascular #1: no edema, tachycardia Gastrointestinal: soft, decreased bowel sounds, overweight Genitourinary: other - Howard Musculoskeletal: other - Moves all 4 Neurologic: alert, normal inspection Psychiatric: mood/affect normal Skin: no rash, warm/dry, other - Recent tattoos Critical Care Time Critical Care Time Time: 30 minutes of bedside evaluation and treatment excludes procedures Procedures: CVP Reason for Critical care: CVP and need for don and duff Possible Complications: Hypotension, sepsis, metabolic acidosis, prevention of end organ injury Interventions: don/duff CVP Course: Extra time required for don and duff - see procedure note for CVP Consultations: PMD, tax staff accountant Result: Patient was improved but critical Performed by: Dr. Irene Central Line Central Line : Consent: Verbal Central Line Lumen: triple Maximal Sterile Barrier Tech: yes cap, yes mask, yes sterile gown, yes sterile gloves, yes large sterile sheet, yes hand hygiene, yes chlorhexidine prep Central Line Postion: internal jugular (R) Anesthesia: Lidocaine cc's of anesthesia: 3 Complications: none Central Line Post Position: sutured, good blood return, position confirmed w / CXR Attempts: One Patient Tolerated: Well Complications: None Progress Ultrasound guidance. EBL 3 ml Medical Decision Making Diagnostic Impression: Primary Impression: Respiratory failure Qualified Codes: J96.01 - Acute respiratory failure with hypoxia; J96.02 - Acute respiratory failure with hypercapnia Additional Impressions: Substance abuse Morbid obesity Gastroenteritis ER Course CVP started - See procedure note Patient tolerated well. (Patient awake and speaking with 1 handed sign language - on "max" propofol.) Rhythm Strip Diag. Results EP Interpretation: yes Rhythm: no PVC's, no ectopy, other - Sinus tachycardia Chest X-Ray Diagnostic Results Chest X-Ray Diagnostic Results : Chest X-Ray Ordered: Yes # of Views/Limited/Complete: 1 View Indication: Other EP Interpretation: Yes Interpretation: no effusion, no pneumothorax, other - ET slightly high and CVP with good placement Impression: Other Electronically Signed by: Electronically signed by Som Irene MD Status: improved Disposition: ADMITTED INPATIENT Condition: Critical Referrals: NOT CHOSEN IPA/,REFERRING (PCP) Som Irene MD Sep 09, 2019 16:17
--- NOTE | 2019-09-09 16:30 | Consultation ---
DATE OF CONSULTATION: 09/09/2019 INFECTIOUS DISEASE CONSULTATION CONSULTING PHYSICIAN: Mraty Rosales M.D. PRIMARY ATTENDING PHYSICIAN: Aidan Chen M.D. This consult is for coverage of Dr. Avila. REASON FOR CONSULT: Sepsis and pneumonia. HISTORY OF PRESENT ILLNESS: This is a 24-year-old male admitted last night complaining of body pain, vomiting, and diarrhea for two days. The patient has history of morbid obesity and sleep apnea, developed acute respiratory failure with hypercapnia, and was intubated, transferred to ICU. He had leukocytosis of 14,000, tachycardia up to 115. PAST MEDICAL HISTORY: Morbid obesity and sleep apnea. ALLERGIES: No known drug allergies. MEDICATIONS: Getting ceftriaxone, Protonix, morphine, Zofran, propofol, and albuterol. SOCIAL HISTORY: Single. No known exposure to travelers. He had a recent history of trip from [place] to [place] and then [place]. He has history of THC abuse. REVIEW OF SYSTEMS: Unobtainable, the patient is currently intubated and sedated with propofol. PHYSICAL EXAMINATION: VITAL SIGNS: Temperature is 100, pulse 111, and blood pressure 140/87. GENERAL APPEARANCE: Obese. HEAD AND NECK: Orally intubated. [place] conjunctivae. HEART: Tachycardic. LUNGS: Decreased sounds bilaterally. ABDOMEN: Soft and nontender. EXTREMITIES: No significant edema. LABORATORY AND DIAGNOSTIC DATA: Influenza A and B tests were negative. WBC 14,000, hemoglobin 14.2, hematocrit 45.6, and platelets 105,000. He had lactic acidosis of 2.1 at the time of admission, now corrected. Sodium 139, potassium 4.7, chloride 102, bicarb 33, BUN 10, creatinine 1.2, glucose 126. LFTs within normal limits. Urine toxicology was positive for amphetamine, cocaine, and marijuana. UA was negative. Chest x-ray showed pulmonary venous congestion with bilateral airspace opacity, which may represent edema, atelectasis, or infection. IMPRESSION: Sepsis with leukocytosis and tachycardia. Also, he has low-grade fever. He may have pneumonia. We will try to rule out negron virus disease 19. He has polysubstance abuse including marijuana, amphetamine, and cocaine. He has morbid obesity. He has acute hypercapnic respiratory failure that is improving after intubation. RECOMMENDATION: Continue ceftriaxone. We will order a chest CT scan. We will order HIV test. We will follow test for RSV and negron virus. At the end of my exam, I thank Dr. Chen for involving me in the care of this patient. Marty Rosales M.D. DR: SHEN JOB#: [id number] CC: AARON
--- NOTE | 2019-09-09 16:30 | NUR ---
NURSE NOTES: Central line, right IJ, triple lumen, was inserted by Dr Irene (ER MD) [address] Kirby's request. Xray was done to confirm placement. Blood was drawn from central line and sent to lab. Fourth vial of Propofol was removed from the pyxis and scanned to replace previous empty vial, pt is currently maintained on Propofol 40mcg/kg/min to maintain RASS score of -2 light sedation. Temp is now 99.8F axillary. Pt remains on AC vent settings, with stable VS. Bilateral soft wrist restraints remain on pt to prevent self-extubation. Skin integrity at restraint site is within normal limits. Pt remains NPO per MD order.
--- NOTE | 2019-09-09 17:13 | Diagnostic Imaging Report ---
Indication: Post central line placement Technique: One view of the chest Comparison: 09/08/2019 Findings: Interim placement right jugular central venous catheter, tip of which projects at the level of the cavoatrial junction. No gross pneumothorax. Bilateral interstitial and airspace infiltrates versus edema, bilateral perihilar atelectasis versus, may be slightly increased. The heart size is upper limits normal. Stable satisfactory position of endotracheal tube. Impression: Satisfactory central line placement. No radiographically evident complication Stable or slightly worse bilateral parenchymal edema versus infiltrates This agrees with the preliminary interpretation provided overnight by [facility] teleradiology service.
--- NOTE | 2019-09-09 18:00 | NUR ---
NURSE NOTES: Pt is maintained on Propofol drip at 30mcg/kg/min at -2 light sedation per RASS score, with stable VS. FIO2 was increased to 60% by RT to maintain O2Sat above 90. Oral care was done.
--- NOTE | 2019-09-09 19:00 | NUR ---
NURSE NOTES: Propofol vial was removed from pyxis and scanned to replace previous bag. VS remain stable, while pt is maintained on Propofol drip at 40mcg for RASS score of -2 light sedation.
--- NOTE | 2019-09-09 19:30 | NUR ---
HAND-OFF: Report given to Belem LYONS. Endorsed plan of care.
--- NOTE | 2019-09-09 19:30 | NUR ---
NURSE NOTES: Received pt orally intubated on AC mode sedated with Diprivan dip at 40 mcg/kg/min, pt also with NS at 100ml/hr infusing to pts TLC RT IJ, site with drsg dry and intact SR on the monitor Bp 115/55 , temp 99.9F, Pt is morbidly obese, bilateral soft wrist restraints on for safety to avoid self extubation. Pts is NPO . Oral care done. Howard to gravity with cloudy urine 30-40 ml/hr. Monitor I and O. monitor lytes. Pt currently on airborne Isolation. Covid-19. Isolation precaution observed.- Will continue to monitor.
--- NOTE | 2019-09-09 20:00 | NUR ---
NURSE NOTES: Family at bedside , updated with pts condition. verbalized understanding
--- NOTE | 2019-09-09 22:00 | NUR ---
NURSE NOTES: Suctioned thin whitish frothy secretions moderate in amt. oral care done. Turned to sides for comfort. Pt assisted at times. Pt is arousable with Diprivan at 40mcg/kg/hr.
[2019-09-09] MEDS: cefTRIAXone 1gm/D5W 55ml IVPB SCH ×2 (23:27)
[2019-09-10] VITALS (38 sets, daily range): BP systolic 98–166; BP diastolic 70–121
--- NOTE | 2019-09-10 | NUR ---
NURSE NOTES: On NSR , bp stable. Afebrile. Will continue to monitor.
--- NOTE | 2019-09-10 02:00 | NUR ---
NURSE NOTES: Complete bed bath with bed changed was done.
--- NOTE | 2019-09-10 03:44 | NUR ---
NURSE NOTES: pt remained on Diprivan at 40mc/kg/hr to obtain RASS score -2. Bp remained stable.
--- NOTE | 2019-09-10 05:00 | NUR ---
NURSE NOTES: No resp. distress noted. vss
[2019-09-10 05:20] LABS: BASOPHILS % (AUTO) 1.3 % (0.0-2.0); EOSINOPHILS % (AUTO) 0.2 % (0.0-3.0); HEMATOCRIT 38.2 % (42.0-52.0); HEMOGLOBIN 12.7 G/DL (14.2-18.0); LYMPHOCYTES % (AUTO) 24.9 % (20.0-45.0); MEAN CORPUSCULAR VOLUME 81 FL (80-99); MONOCYTES % (AUTO) 6.6 % (1.0-10.0); NEUTROPHILS % (AUTO) 66.9 % (45.0-75.0); PLATELET COUNT 298 K/UL (150-450); RED BLOOD COUNT 4.69 M/UL (4.70-6.10); RED CELL DISTRIBUTION WIDTH 12.8 % (11.6-14.8); WHITE BLOOD COUNT 16.3 K/UL (4.8-10.8)
[2019-09-10 05:55] LABS: ALANINE AMINOTRANSFERASE 39 U/L (12-78); ALBUMIN 2.7 G/DL (3.4-5.0); ALBUMIN/GLOBULIN RATIO 0.8 (1.0-2.7); ALKALINE PHOSPHATASE 87 U/L (46-116); ANION GAP 10 mmol/L (5-15); ASPARTATE AMINO TRANSFERASE 21 U/L (15-37); BILIRUBIN,TOTAL 0.2 MG/DL (0.2-1.0); BLOOD UREA NITROGEN 16 mg/dL (7-18); CALCIUM 8.6 MG/DL (8.5-10.1); CARBON DIOXIDE 28 MMOL/L (21-32); CHLORIDE 106 MMOL/L (98-107); CREATININE 1.6 MG/DL (0.55-1.30); POTASSIUM 3.3 MMOL/L (3.5-5.1); SODIUM 144 MMOL/L (136-145)
--- NOTE | 2019-09-10 06:00 | NUR ---
NURSE NOTES: Pt still on Diprivan drip at 40mcg/kg/hr. to keep RASS SCORE -2. pt easily arousable to tactile stimulation. . Needs frequent suctioning.
--- NOTE | 2019-09-10 07:29 | NUR ---
HAND-OFF: Report given to Milena LYONS.
--- NOTE | 2019-09-10 07:30 | NUR ---
NURSE NOTES: LATE ENTRY: RECEIVED REPORT FROM WOLFGANG LYONS. AWAKENS TO NAME. MOUTHS WORDS, USING ALPHABET BLOCKS TO COMMUNICATE. PUPILS 2MM SLUGGISH. HR 83, BP 141/90, RR 18, 02SAT 98% . LUNG SOUNDS DIMINISHED. SECRETIONS CLEAR, YELLOW, MODERATE AMOUNT. ORAL SUCTION NEEDED. PT INTUBATED. ETTUBE 7.5, 24CM AT LIP. VENT AC 18, VT 600, PEEP 5, FI02 60% PEEP 5. PT NPO. ABDOMEN LARGE, ROUND. BOWEL SOUNDS ACTIVE. NO BM AT THIS TIME. ALEJANDRA DRAINING YELLOW URINE. SECURE AND DRAINING BELOW BLADDER. SKIN INTACT. RT IJ TLC. RUNNING PROPOFOL 40MCG/KG/MIN. AIRBORNE PRECAUTIONS IN PLACE. BED LOCKED, IN LOW POSITION. BILATERAL SOFT WRIST RESTRAINTS. EDUCATION ON MEDICATION SIDE EFFECTS. WILL CONTINUE TO IMPLEMENT PLAN OF CARE.
[2019-09-10] MEDS: Pantoprazole Inj IVP SCH (08:43)
[2019-09-10] MEDS: Heparin 5000 units/ml inj SUBQ SCH ×2 (08:46→20:48)
--- NOTE | 2019-09-10 09:28 | NUR ---
RD ASSESSMENT & RECOMMENDATIONS SEE CARE ACTIVITY FOR COMPLETE ASSESSMENT DAILY ESTIMATED NEEDS: Needs based on Critical care, morbid obesity 11-14kcal/kg actual wt 159.6kg kcals/kg 7409-4012 total kcals 1.5-2.0g/kg IBW 81kg g protein/kg 121-162 g total protein Fluids per MD NUTRITION DIAGNOSIS: * Swallowing difficulty R/T respiratory failure as evidenced by pt orally intubated, NPO at this time. * Morbid obesity R/T life style factors? excessive energy intake? as evidenced by BMI of 47.7. CURRENT DIET:NPO PO DIET RECOMMENDATIONS: GROUP WORKER EVAL POST EXTUBATION -> CARDIAC ENTERAL NUTRITION RECOMMENDATIONS: (WITHOUT DIPRIVAN) Vital AF 1.2 @ 65ml/hr x 24 hrs + Prosource 1pkt daily to provide 1560ml, 1872kcal, 117g +11 g prot, 1265ml free water (WITHOUT DIPRIVAN) * W/ GI access, initiate Vital AF 1.2 @ 25ml/hr x 24 hrs. * Advance 10ml q 4-6 hrs as tolerated to goal rate * Add Prosource x 1 to better meet protein needs * HOB Over 30 degrees/ water flush per MD (WITH DIPRIVAN RUNNING @ 40MCG/KG/HR -> provides 1029kcal) -> Rec Vital AF 1.2 @ goal rate of 30ml/hr x 24 hrs to provide 720ml, 864kcal, 54g prot. TF + Diprivan will provide total of 1896kcal per day ADDITIONAL RECOMMENDATIONS: * Calibrated bedscale wt for accurate CBW * Monitor NPO status: without GI access at this time, orally intubated * TF rec as above if TF indicated * Monitor lytes, replete as needed
--- NOTE | 2019-09-10 10:49 | NUR ---
Received verbal order from MD Rivera to wean pt.Freddy then told by RN, Milena & storage battery charger, Keyoung to hold weaning until sedation lowered and pt more aware/alert. Will standby.
--- NOTE | 2019-09-10 11:23 | NUR ---
RADIOLOGY DEPT., LATE ENTRY, CHEST X-RAY PERFORMED AT 16:26HRS 09/08.-P.DYE
--- NOTE | 2019-09-10 11:36 | Infectious Diseases Prog Note ---
Assessment/Plan Assessment/Plan antibiotics : ceftriaxone A 1. pneumonia 2. respiratory failure 3. sleep apnea 4. leucocytosis 5. obesity 6. drug use P 1. continue ceftriaxone 2. sputum cultures 3. will follow up cultures Subjective ROS Limited/Unobtainable: Yes Allergies: Coded Allergies: No Known Allergies (Unverified , 08/21/19) Objective Vital Signs Last 24 Hour Vital Signs Date Time Temp Pulse Resp B/P (MAP) Pulse Ox O2 Delivery O2 Flow Rate FiO2 09/10/19 10:51 88 18 50 09/10/19 09:00 85 18 50 09/10/19 08:46 18 145/101 09/10/19 08:00 80 18 141/90 (107) 98 09/10/19 08:00 92 09/10/19 07:30 83 18 132/88 (103) 98 09/10/19 07:09 84 18 50 09/10/19 07:00 18 144/95 Mechanical Ventilator 60 09/10/19 07:00 83 18 144/95 (111) 97 09/10/19 06:35 20 139/79 60 09/10/19 06:30 86 18 136/79 (98) 97 09/10/19 06:30 89 18 09/10/19 06:00 86 18 138/88 (105) 97 09/10/19 06:00 18 136/79 Mechanical Ventilator 60 09/10/19 05:30 82 18 145/91 (109) 98 09/10/19 05:26 90 18 50 09/10/19 05:00 85 18 138/93 (108) 97 09/10/19 05:00 18 145/91 Mechanical Ventilator 60 09/10/19 04:30 83 18 145/102 (116) 97 09/10/19 04:00 98.6 84 18 157/91 (113) 98 09/10/19 04:00 18 145/102 Mechanical Ventilator 60.0 09/10/19 04:00 60 09/10/19 04:00 Mechanical Ventilator 09/10/19 03:53 20 141/93 Mechanical Ventilator 60 09/10/19 03:30 89 18 141/93 (109) 95 09/10/19 03:15 90 18 50 09/10/19 03:00 87 10 136/86 (103) 99 09/10/19 03:00 18 132/83 Mechanical Ventilator 60 09/10/19 02:30 86 13 131/80 (97) 100 09/10/19 02:00 18 131/80 Mechanical Ventilator 60 09/10/19 02:00 84 11 133/85 (101) 99 09/10/19 01:44 18 129/78 60 09/10/19 01:30 90 18 129/78 (95) 100 09/10/19 01:19 91 18 50 09/10/19 01:00 91 18 132/80 (97) 99 09/10/19 01:00 18 129/78 Mechanical Ventilator 60 09/10/19 00:40 93 09/10/19 00:30 92 18 130/77 (94) 99 09/10/19 00:00 60 09/10/19 00:00 Mechanical Ventilator 09/10/19 00:00 98.8 98 18 136/76 (96) 99 09/10/19 00:00 18 130/77 Mechanical Ventilator 09/10/19 00:00 105 09/09/19 23:30 101 0 140/84 (102) 99 09/09/19 23:29 18 137/81 60 09/09/19 23:11 99 18 50 09/09/19 23:00 99 0 136/74 (94) 99 09/09/19 23:00 18 137/81 Mechanical Ventilator 09/09/19 22:45 103 13 132/76 (94) 98 09/09/19 22:30 103 10 125/83 (97) 97 09/09/19 22:00 108 18 135/92 (106) 95 09/09/19 22:00 18 145/89 Mechanical Ventilator 09/09/19 21:30 94 15 97/78 (84) 98 09/09/19 21:02 100 18 50 09/09/19 21:00 101 7 120/72 (88) 97 09/09/19 21:00 18 116/69 Mechanical Ventilator 09/09/19 20:50 18 115/73 60 09/09/19 20:30 98 18 105/57 (73) 99 09/09/19 20:15 99 18 105/55 (72) 98 09/09/19 20:00 105 09/09/19 20:00 60 09/09/19 20:00 98.8 99 18 112/60 (77) 98 09/09/19 20:00 18 105/55 Mechanical Ventilator 09/09/19 20:00 Mechanical Ventilator 09/09/19 19:30 100 18 103/53 (70) 99 09/09/19 19:07 18 108/50 Mechanical Ventilator 50 09/09/19 19:02 101 18 50 09/09/19 19:00 101 16 104/50 (68) 99 09/09/19 18:30 98 18 111/55 (73) 96 09/09/19 18:00 18 109/50 Mechanical Ventilator 40 09/09/19 18:00 94 18 108/50 (69) 93 09/09/19 17:40 93 18 50 09/09/19 17:30 94 17 94/51 (65) 88 09/09/19 17:15 18 94/51 Mechanical Ventilator 40 09/09/19 17:00 105 17 111/62 (78) 91 09/09/19 17:00 18 115/59 Mechanical Ventilator 40 09/09/19 16:45 18 110/62 Mechanical Ventilator 40 09/09/19 16:31 18 139/111 Mechanical Ventilator 35 09/09/19 16:30 108 0 114/56 (75) 91 09/09/19 16:00 Mechanical Ventilator 09/09/19 16:00 99.9 109 18 110/64 (79) 94 09/09/19 16:00 18 90/56 Mechanical Ventilator 35 09/09/19 16:00 108 09/09/19 16:00 40 09/09/19 15:45 18 110/64 Mechanical Ventilator 40 09/09/19 15:30 19 100/50 Mechanical Ventilator 35 09/09/19 15:30 105 16 90/56 (67) 94 09/09/19 15:17 99.2 09/09/19 15:15 18 90/56 Mechanical Ventilator 35 09/09/19 15:02 116 18 35 09/09/19 15:00 115 0 142/86 (104) 92 09/09/19 15:00 20 100/46 Mechanical Ventilator 35 09/09/19 14:48 18 139/111 Mechanical Ventilator 45 09/09/19 14:30 21 147/83 Mechanical Ventilator 35 09/09/19 14:30 117 21 128/64 (85) 95 09/09/19 14:00 124 21 130/70 (90) 95 09/09/19 14:00 21 127/57 Mechanical Ventilator 35 09/09/19 13:45 125 20 130/67 (88) 95 09/09/19 13:30 17 155/129 Mechanical Ventilator 35 09/09/19 13:30 124 14 142/83 (102) 94 09/09/19 13:15 123 19 156/97 (116) 99 09/09/19 13:15 17 142/83 Mechanical Ventilator 35 09/09/19 13:00 121 24 35 09/09/19 13:00 122 23 155/81 (105) 93 09/09/19 13:00 17 156/97 Mechanical Ventilator 35 09/09/19 12:45 16 155/81 Mechanical Ventilator 35 09/09/19 12:37 18 139/111 Mechanical Ventilator 45 09/09/19 12:30 99.8 124 22 139/111 (120) 94 09/09/19 12:00 122 16 144/125 (131) 93 09/09/19 12:00 119 09/09/19 12:00 20 144/125 Mechanical Ventilator 35 09/09/19 12:00 35 09/09/19 12:00 Mechanical Ventilator Height (Feet): 6 Height (Inches): 0.00 Weight (Pounds): 352 HEENT: other - intubated Respiratory/Chest: lungs clear Cardiovascular: normal rate, regular rhythm, no gallop/murmur Abdomen: soft, non tender Extremities: no edema Microbiology Date/Time Source Procedure Growth Status 09/09/19 00:30 Blood Blood Culture - Preliminary NO GROWTH AFTER 24 HOURS Resulted 09/09/19 00:15 Blood Blood Culture - Preliminary NO GROWTH AFTER 24 HOURS Resulted 09/08/19 20:30 Nose - Final Complete 09/08/19 20:30 Nose - Final Complete 09/09/19 01:15 Rectum Received Laboratory Tests Test 09/09/19 12:16 09/09/19 16:00 09/10/19 04:00 09/10/19 09:11 Arterial Blood pH 7.370 (7.350-7.450) 7.416 (7.350-7.450) Arterial Blood Partial Pressure CO2 55.9 mmHg (35.0-45.0) *H 48.8 mmHg (35.0-45.0) H Arterial Blood Partial Pressure O2 57.5 mmHg (75.0-100.0) L 80.4 mmHg (75.0-100.0) Arterial Blood HCO3 31.6 mmol/L (22.0-26.0) H 30.7 mmol/L (22.0-26.0) H Arterial Blood Oxygen Saturation 90.4 % (95-100) L 95.3 % (95-100) Arterial Blood Base Excess 4.7 (-2-2) H 5.1 (-2-2) H Jorge Test Positive Positive Triglycerides Level 143 MG/DL (30-150) White Blood Count 16.3 K/UL (4.8-10.8) H Red Blood Count 4.69 M/UL (4.70-6.10) L Hemoglobin 12.7 G/DL (14.2-18.0) L Hematocrit 38.2 % (42.0-52.0) L Mean Corpuscular Volume 81 FL (80-99) Mean Corpuscular Hemoglobin 27.0 PG (27.0-31.0) Mean Corpuscular Hemoglobin Concent 33.1 G/DL (32.0-36.0) Red Cell Distribution Width 12.8 % (11.6-14.8) Platelet Count 298 K/UL (150-450) # Mean Platelet Volume 7.9 FL (6.5-10.1) Neutrophils (%) (Auto) 66.9 % (45.0-75.0) Lymphocytes (%) (Auto) 24.9 % (20.0-45.0) Monocytes (%) (Auto) 6.6 % (1.0-10.0) Eosinophils (%) (Auto) 0.2 % (0.0-3.0) Basophils (%) (Auto) 1.3 % (0.0-2.0) Sodium Level 144 MMOL/L (136-145) Potassium Level 3.3 MMOL/L (3.5-5.1) L Chloride Level 106 MMOL/L (98-107) Carbon Dioxide Level 28 MMOL/L (21-32) Anion Gap 10 mmol/L (5-15) Blood Urea Nitrogen 16 mg/dL (7-18) Creatinine 1.6 MG/DL (0.55-1.30) H Estimat Glomerular Filtration Rate > 60 mL/min (>60) Glucose Level 117 MG/DL (74-106) H Calcium Level 8.6 MG/DL (8.5-10.1) Total Bilirubin 0.2 MG/DL (0.2-1.0) Aspartate Amino Transf (AST/SGOT) 21 U/L (15-37) Alanine Aminotransferase (ALT/SGPT) 39 U/L (12-78) Alkaline Phosphatase 87 U/L (46-116) Total Protein 6.3 G/DL (6.4-8.2) L Albumin 2.7 G/DL (3.4-5.0) L Globulin 3.6 g/dL Albumin/Globulin Ratio 0.8 (1.0-2.7) L HIV (1&2) Antibody Rapid Negative (NEGATIVE) Current Medications Medications (Trade) Dose Ordered Sig/Tamara Route PRN Reason Start Time Stop Time Status Last Admin Dose Admin Ceftriaxone Sodium 1 gm/ Dextrose 55 ml @ 110 mls/hr Q24H IVPB 09/09/19 23:00 09/16/19 22:59 09/09/19 23:27 Chlorhexidine Gluconate (Zora-Hex 2%) 1 applic DAILY@2000 TOPIC 09/10/19 20:00 10/10/19 19:59 Heparin Sodium (Porcine) (Heparin 5000 units/ml) 5,000 units EVERY 12 HOURS SUBQ 09/09/19 09:00 10/24/19 08:59 09/10/19 08:46 Morphine Sulfate (Morphine Sulfate) 4 mg Q4H PRN IVP PAIN 4-10 09/09/19 09:00 09/16/19 08:59 09/09/19 14:47 Ondansetron HCl (Zofran) 4 mg Q6H PRN IVP Nausea & Vomiting 09/09/19 09:00 10/09/19 08:59 Pantoprazole (Protonix) 40 mg DAILY IVP 09/09/19 09:30 10/09/19 09:29 09/10/19 08:43 Propofol 100 ml @ 0 mls/hr Q24H IV 09/09/19 09:00 09/11/19 08:59 09/10/19 08:46 Sodium Chloride 1,000 ml @ 100 mls/hr Q10H IV 09/09/19 09:30 10/09/19 09:29 09/10/19 03:47 Dari Avila MD Sep 10, 2019 11:36
--- NOTE | 2019-09-10 11:40 | NUR ---
NURSE NOTES: PT WEANED CPAP, PS 8.. BP 151/82. HR 96.
--- NOTE | 2019-09-10 11:58 | Pulmonology Progress Note ---
Assessment/Plan Assessment/Plan respiratory failure possible COVID 19; but doubt it lymphopenia sinus tachycardia + tox screen PLAN vent support follow up ABG consider steroids will wean IV antibiotics per ID d/w ID and will adjust on zithromax for now strict isolation critical Subjective Interval Events: Remains intubated; on propoful; awake and responsive Constitutional: Reports: no symptoms HEENT: Repors: no symptoms Respiratory: Reports: no symptoms Cardiovascular: Reports: no symptoms Gastrointestinal/Abdominal: Reports: no symptoms Allergies: Coded Allergies: No Known Allergies (Unverified , 08/21/19) Objective Last 24 Hour Vital Signs Date Time Temp Pulse Resp B/P (MAP) Pulse Ox O2 Delivery O2 Flow Rate FiO2 09/10/19 10:51 88 18 50 09/10/19 09:00 85 18 50 09/10/19 08:46 18 145/101 09/10/19 08:00 80 18 141/90 (107) 98 09/10/19 08:00 92 09/10/19 07:30 83 18 132/88 (103) 98 09/10/19 07:09 84 18 50 09/10/19 07:00 18 144/95 Mechanical Ventilator 60 09/10/19 07:00 83 18 144/95 (111) 97 09/10/19 06:35 20 139/79 60 09/10/19 06:30 86 18 136/79 (98) 97 09/10/19 06:30 89 18 09/10/19 06:00 86 18 138/88 (105) 97 09/10/19 06:00 18 136/79 Mechanical Ventilator 60 09/10/19 05:30 82 18 145/91 (109) 98 09/10/19 05:26 90 18 50 09/10/19 05:00 85 18 138/93 (108) 97 09/10/19 05:00 18 145/91 Mechanical Ventilator 60 09/10/19 04:30 83 18 145/102 (116) 97 09/10/19 04:00 98.6 84 18 157/91 (113) 98 09/10/19 04:00 18 145/102 Mechanical Ventilator 60.0 09/10/19 04:00 60 09/10/19 04:00 Mechanical Ventilator 09/10/19 03:53 20 141/93 Mechanical Ventilator 60 09/10/19 03:30 89 18 141/93 (109) 95 3/16/20 03:15 90 18 50 09/10/19 03:00 87 10 136/86 (103) 99 09/10/19 03:00 18 132/83 Mechanical Ventilator 60 09/10/19 02:30 86 13 131/80 (97) 100 09/10/19 02:00 18 131/80 Mechanical Ventilator 60 09/10/19 02:00 84 11 133/85 (101) 99 09/10/19 01:44 18 129/78 60 09/10/19 01:30 90 18 129/78 (95) 100 09/10/19 01:19 91 18 50 09/10/19 01:00 91 18 132/80 (97) 99 09/10/19 01:00 18 129/78 Mechanical Ventilator 60 09/10/19 00:40 93 09/10/19 00:30 92 18 130/77 (94) 99 09/10/19 00:00 60 09/10/19 00:00 Mechanical Ventilator 09/10/19 00:00 98.8 98 18 136/76 (96) 99 09/10/19 00:00 18 130/77 Mechanical Ventilator 09/10/19 00:00 105 09/09/19 23:30 101 0 140/84 (102) 99 09/09/19 23:29 18 137/81 60 09/09/19 23:11 99 18 50 09/09/19 23:00 99 0 136/74 (94) 99 09/09/19 23:00 18 137/81 Mechanical Ventilator 09/09/19 22:45 103 13 132/76 (94) 98 09/09/19 22:30 103 10 125/83 (97) 97 09/09/19 22:00 108 18 135/92 (106) 95 09/09/19 22:00 18 145/89 Mechanical Ventilator 09/09/19 21:30 94 15 97/78 (84) 98 09/09/19 21:02 100 18 50 09/09/19 21:00 101 7 120/72 (88) 97 09/09/19 21:00 18 116/69 Mechanical Ventilator 09/09/19 20:50 18 115/73 60 09/09/19 20:30 98 18 105/57 (73) 99 09/09/19 20:15 99 18 105/55 (72) 98 09/09/19 20:00 105 09/09/19 20:00 60 09/09/19 20:00 98.8 99 18 112/60 (77) 98 09/09/19 20:00 18 105/55 Mechanical Ventilator 09/09/19 20:00 Mechanical Ventilator 09/09/19 19:30 100 18 103/53 (70) 99 09/09/19 19:07 18 108/50 Mechanical Ventilator 50 09/09/19 19:02 101 18 50 09/09/19 19:00 101 16 104/50 (68) 99 09/09/19 18:30 98 18 111/55 (73) 96 09/09/19 18:00 18 109/50 Mechanical Ventilator 40 09/09/19 18:00 94 18 108/50 (69) 93 09/09/19 17:40 93 18 50 09/09/19 17:30 94 17 94/51 (65) 88 09/09/19 17:15 18 94/51 Mechanical Ventilator 40 09/09/19 17:00 105 17 111/62 (78) 91 09/09/19 17:00 18 115/59 Mechanical Ventilator 40 09/09/19 16:45 18 110/62 Mechanical Ventilator 40 09/09/19 16:31 18 139/111 Mechanical Ventilator 35 09/09/19 16:30 108 0 114/56 (75) 91 09/09/19 16:00 Mechanical Ventilator 09/09/19 16:00 99.9 109 18 110/64 (79) 94 09/09/19 16:00 18 90/56 Mechanical Ventilator 35 09/09/19 16:00 108 09/09/19 16:00 40 09/09/19 15:45 18 110/64 Mechanical Ventilator 40 09/09/19 15:30 19 100/50 Mechanical Ventilator 35 09/09/19 15:30 105 16 90/56 (67) 94 09/09/19 15:17 99.2 09/09/19 15:15 18 90/56 Mechanical Ventilator 35 09/09/19 15:02 116 18 35 09/09/19 15:00 115 0 142/86 (104) 92 09/09/19 15:00 20 100/46 Mechanical Ventilator 35 09/09/19 14:48 18 139/111 Mechanical Ventilator 45 09/09/19 14:30 21 147/83 Mechanical Ventilator 35 09/09/19 14:30 117 21 128/64 (85) 95 09/09/19 14:00 124 21 130/70 (90) 95 09/09/19 14:00 21 127/57 Mechanical Ventilator 35 09/09/19 13:45 125 20 130/67 (88) 95 09/09/19 13:30 17 155/129 Mechanical Ventilator 35 09/09/19 13:30 124 14 142/83 (102) 94 09/09/19 13:15 123 19 156/97 (116) 99 09/09/19 13:15 17 142/83 Mechanical Ventilator 35 09/09/19 13:00 121 24 35 09/09/19 13:00 122 23 155/81 (105) 93 09/09/19 13:00 17 156/97 Mechanical Ventilator 35 09/09/19 12:45 16 155/81 Mechanical Ventilator 35 09/09/19 12:37 18 139/111 Mechanical Ventilator 45 09/09/19 12:30 99.8 124 22 139/111 (120) 94 09/09/19 12:00 122 16 144/125 (131) 93 09/09/19 12:00 119 09/09/19 12:00 20 144/125 Mechanical Ventilator 35 09/09/19 12:00 35 09/09/19 12:00 Mechanical Ventilator Intake and Output 09/09/19 09/10/19 19:00 07:00 Intake Total 1670.991 ml 1583.703 ml Output Total 400 ml 480 ml Balance 1270.991 ml 1103.703 ml IV Total 1670.991 ml 1583.703 ml Output Urine Total 400 ml 480 ml General Appearance: no acute distress HEENT: normocephalic Respiratory/Chest: chest wall non-tender, decreased breath sounds Cardiovascular: normal peripheral pulses, normal rate Abdomen: normal bowel sounds Microbiology Date/Time Source Procedure Growth Status 09/09/19 00:30 Blood Blood Culture - Preliminary NO GROWTH AFTER 24 HOURS Resulted 09/09/19 00:15 Blood Blood Culture - Preliminary Resulted 09/08/19 20:30 Nose - Final Complete 09/08/19 20:30 Nose - Final Complete 09/09/19 01:15 Rectum Received Laboratory Tests 09/09/19 12:16: Arterial Blood pH 7.370, Arterial Blood Partial Pressure CO2 55.9*H, Arterial Blood Partial Pressure O2 57.5L, Arterial Blood HCO3 31.6H, Arterial Blood Oxygen Saturation 90.4L, Arterial Blood Base Excess 4.7H, Jorge Test Positive 09/09/19 16:00: Triglycerides Level 143 09/10/19 04:00: White Blood Count 16.3H, Red Blood Count 4.69L, Hemoglobin 12.7L, Hematocrit 38.2L, Mean Corpuscular Volume 81, Mean Corpuscular Hemoglobin 27.0, Mean Corpuscular Hemoglobin Concent 33.1, Red Cell Distribution Width 12.8, Platelet Count 298#, Mean Platelet Volume 7.9, Neutrophils (%) (Auto) 66.9, Lymphocytes ( %) (Auto) 24.9, Monocytes (%) (Auto) 6.6, Eosinophils (%) (Auto) 0.2, Basophils (%) (Auto) 1.3, Sodium Level 144, Potassium Level 3.3L, Chloride Level 106, Carbon Dioxide Level 28, Anion Gap 10, Blood Urea Nitrogen 16, Creatinine 1.6H, Estimat Glomerular Filtration Rate > 60, Glucose Level 117H, Calcium Level 8.6, Total Bilirubin 0.2, Aspartate Amino Transf (AST/SGOT) 21, Alanine Aminotransferase (ALT/SGPT) 39, Alkaline Phosphatase 87, Total Protein 6.3L, Albumin 2.7L, Globulin 3.6, Albumin/Globulin Ratio 0.8L, HIV (1&2) Antibody Rapid Negative 09/10/19 09:11: Arterial Blood pH 7.416, Arterial Blood Partial Pressure CO2 48.8H, Arterial Blood Partial Pressure O2 80.4, Arterial Blood HCO3 30.7H, Arterial Blood Oxygen Saturation 95.3, Arterial Blood Base Excess 5.1H, Jorge Test Positive Current Medications Medications (Trade) Dose Ordered Sig/Tamara Route PRN Reason Start Time Stop Time Status Last Admin Dose Admin Ceftriaxone Sodium 1 gm/ Dextrose 55 ml @ 110 mls/hr Q24H IVPB 09/09/19 23:00 09/16/19 22:59 09/09/19 23:27 Chlorhexidine Gluconate (Zora-Hex 2%) 1 applic DAILY@2000 TOPIC 09/10/19 20:00 10/10/19 19:59 Heparin Sodium (Porcine) (Heparin 5000 units/ml) 5,000 units EVERY 12 HOURS SUBQ 09/09/19 09:00 10/24/19 08:59 09/10/19 08:46 Morphine Sulfate (Morphine Sulfate) 4 mg Q4H PRN IVP PAIN 4-10 09/09/19 09:00 09/16/19 08:59 09/09/19 14:47 Ondansetron HCl (Zofran) 4 mg Q6H PRN IVP Nausea & Vomiting 09/09/19 09:00 10/09/19 08:59 Pantoprazole (Protonix) 40 mg DAILY IVP 09/09/19 09:30 10/09/19 09:29 09/10/19 08:43 Propofol 100 ml @ 0 mls/hr Q24H IV 09/09/19 09:00 09/11/19 08:59 09/10/19 08:46 Sodium Chloride 1,000 ml @ 100 mls/hr Q10H IV 09/09/19 09:30 10/09/19 09:29 09/10/19 03:47 Samir Gardner MD Sep 10, 2019 11:58
--- NOTE | 2019-09-10 12:03 | NUR ---
NURSE NOTES: LATE ENTRY: AWAKENS TO NAME. MOUTHS WORDS. HR 88, BP 141/77, RR 15, 02SAT 99% . LUNG SOUNDS DIMINISHED. SECRETIONS CLEAR, MODERATE AMOUNT. ORAL CARE PROVIDED. PT INTUBATED. ETTUBE 7.5, 24CM AT LIP. VENT AC 18, VT 600, PEEP 5, FI02 60% PEEP 5. PT NPO. NO BM AT THIS TIME. ALEJANDRA DRAINING YELLOW URINE. RT IJ TLC. AIRBORNE PRECAUTIONS IN PLACE. BED LOCKED, IN LOW POSITION. BILATERAL SOFT WRIST RESTRAINTS. WILL CONTINUE TO MONITOR PT
--- NOTE | 2019-09-10 13:22 | NUR ---
SS note This SW followed up with patient, currently in the ICU, who is currently intubated, sedated (pending weaning from the vent at this time). 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 Mother explains patient lives in an apartment in [place] and was out "partying" prior to this admission with some friends. Mother denied any other history of substance abuse or mental health concerns. Mother requesting Recuperative Care for patient upon discharge, then stating that patient was homeless, staying with different friends, family and won't be in a apartment until September 25 (mother appears to not be forthcoming with patients information, changing the story). This SW explained to mother regarding patient will need to meet criteria for Recuperative Care approval (patient has income); pending progress at this time. SW to follow for resources and placement, as needed.
--- NOTE | 2019-09-10 15:05 | NUR ---
NURSE NOTES: CALLED AND LEFT MESSAGE FOR MD ANDERSON REGARDING WEANING AND ABG RESULTS. AWAITING CALL BACK.
--- NOTE | 2019-09-10 15:29 | NUR ---
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 100.0 HR 136 RR 28 B/P 130/89 AC 18 TV 600 FIO2 100% PH 7.17 PCO2 92.4 PO2 71.1 HCO3 33.2 O2 SAT 90.7 WBC 14.0 CO2 33 URINE TOXIC SCREEN+ COCAINE,AMPHETAMINES,THC CXR=Reduced lung volumes with accentuation of bronchovascular markings. IS: PREVACID IV BENADRYL IV REGLAN IV IV NS X 1 LITER SOLU MEDROL IV ALB HHN TYLENOL ADMITTED TO ICU @ 0700 ICU STATUS DCP PENDING HOSPITAL STAY
--- NOTE | 2019-09-10 16:09 | NUR ---
*-* INSURANCE *-* ALL CLINICALS AND REVIEWS HAVE BEEN FAXED TO: [facility] FAX NOTIFICATIONS AND CLINICALS TO: [phone]
--- NOTE | 2019-09-10 16:40 | NUR ---
NURSE NOTES: PT EXTUBATED. TOLERATING WELL. SATING 92-95%. NO C/O SOB OR CHEST PAIN.
--- NOTE | 2019-09-10 17:04 | NUR ---
RESPIRATORY NOTE: Pt successfully extubated @1640 and placed on cool aerosol. No distress noted. Will cont to monitor.
--- NOTE | 2019-09-10 17:37 | General Progress Note ---
Assessment/Plan Status: stable, not improved, unchanged Assessment/Plan: Mr. Fournier is a 24 year old M w/ hx of asthma, morbid obesity, KRISTIAN, presenting with weakness, respiratory failure, intubated. #Acute hypoxic, hypercapneic respiratory failure, requiring intubation. #COVID-19 rule out. #ARDS #Sepsis -Intubated. Continue ventilator therapy. -Off sedation. -Plan for extubation today. -Appreciate pulmonology recommendations. -ABG initially 7.173 with pCO2 of 92.4, O2 of 71.1, improved to 7.37/55.9/57.5 with ventilator, further improved on repeat. -Ceftriaxone (09/07 -), s/p azithromycin (09/07) -Appreciate ID recs. -s/p steroid x1. -f/u Covid testing. Isolation in the meantime. -discussed with , highly doubt covid. Was in a constitution party with "the wrong people " doing drugs. #Morbid obesity #Presumed KRISTIAN #Presumed obesity hypoventilation syndrome -CPAP outpatient. -Weight loss counseling. #Substance abuse Amphetamine, cocaine, THC positive on urine. -counseling when extubated. I spent 37 minutes on this patient's case, and 30 mins dedicated to critical care. Critical Care Services performed include: Telemetry review Hemodynamic measurement interpretation Laboratory review and interpretation Radiology image review and interpretation Interpretation of ABG's Review, management of ventilator settings Discussion of patient's care with ICU team, ICU nursing staff and consulting services. Subjective Date patient seen: Sep 10, 2019 ROS Limited/Unobtainable: Yes - intubated Allergies: Coded Allergies: No Known Allergies (Unverified , 08/21/19) Subjective intubated, off sedation. no acute o/n events. Objective Last 24 Hour Vital Signs Date Time Temp Pulse Resp B/P (MAP) Pulse Ox O2 Delivery O2 Flow Rate FiO2 09/10/19 17:02 Simple Mask 15.0 70 09/10/19 15:21 92 18 50 09/10/19 14:20 94 18 50 09/10/19 13:20 90 20 09/10/19 12:30 89 14 122/71 (88) 100 09/10/19 12:00 90 09/10/19 12:00 98.6 89 19 141/77 (98) 100 09/10/19 12:00 60 09/10/19 12:00 Mechanical Ventilator 09/10/19 11:30 90 19 161/106 (124) 100 09/10/19 11:00 87 2 158/108 (125) 99 09/10/19 10:51 88 18 50 09/10/19 10:30 95 12 151/108 (122) 98 09/10/19 10:00 95 19 148/121 (130) 98 09/10/19 09:30 102 16 166/117 (133) 97 09/10/19 09:00 85 18 50 09/10/19 09:00 79 18 140/105 (117) 98 09/10/19 08:46 18 145/101 09/10/19 08:30 98.5 82 18 145/101 (116) 97 09/10/19 08:00 80 18 141/90 (107) 98 09/10/19 08:00 60 09/10/19 08:00 Mechanical Ventilator 09/10/19 08:00 92 09/10/19 07:30 83 18 132/88 (103) 98 09/10/19 07:09 84 18 50 09/10/19 07:00 18 144/95 Mechanical Ventilator 60 09/10/19 07:00 83 18 144/95 (111) 97 09/10/19 06:35 20 139/79 60 09/10/19 06:30 86 18 136/79 (98) 97 09/10/19 06:30 89 18 09/10/19 06:00 86 18 138/88 (105) 97 09/10/19 06:00 18 136/79 Mechanical Ventilator 60 09/10/19 05:30 82 18 145/91 (109) 98 09/10/19 05:26 90 18 50 09/10/19 05:00 85 18 138/93 (108) 97 09/10/19 05:00 18 145/91 Mechanical Ventilator 60 09/10/19 04:30 83 18 145/102 (116) 97 09/10/19 04:00 98.6 84 18 157/91 (113) 98 09/10/19 04:00 18 145/102 Mechanical Ventilator 60.0 09/10/19 04:00 60 09/10/19 04:00 Mechanical Ventilator 09/10/19 03:53 20 141/93 Mechanical Ventilator 60 09/10/19 03:30 89 18 141/93 (109) 95 09/10/19 03:15 90 18 50 09/10/19 03:00 87 10 136/86 (103) 99 09/10/19 03:00 18 132/83 Mechanical Ventilator 60 09/10/19 02:30 86 13 131/80 (97) 100 09/10/19 02:00 18 131/80 Mechanical Ventilator 60 09/10/19 02:00 84 11 133/85 (101) 99 09/10/19 01:44 18 129/78 60 09/10/19 01:30 90 18 129/78 (95) 100 09/10/19 01:19 91 18 50 09/10/19 01:00 91 18 132/80 (97) 99 09/10/19 01:00 18 129/78 Mechanical Ventilator 60 09/10/19 00:40 93 09/10/19 00:30 92 18 130/77 (94) 99 09/10/19 00:00 60 09/10/19 00:00 Mechanical Ventilator 09/10/19 00:00 98.8 98 18 136/76 (96) 99 09/10/19 00:00 18 130/77 Mechanical Ventilator 09/10/19 00:00 105 09/09/19 23:30 101 0 140/84 (102) 99 09/09/19 23:29 18 137/81 60 09/09/19 23:11 99 18 50 09/09/19 23:00 99 0 136/74 (94) 99 09/09/19 23:00 18 137/81 Mechanical Ventilator 09/09/19 22:45 103 13 132/76 (94) 98 09/09/19 22:30 103 10 125/83 (97) 97 09/09/19 22:00 108 18 135/92 (106) 95 09/09/19 22:00 18 145/89 Mechanical Ventilator 09/09/19 21:30 94 15 97/78 (84) 98 09/09/19 21:02 100 18 50 09/09/19 21:00 101 7 120/72 (88) 97 09/09/19 21:00 18 116/69 Mechanical Ventilator 09/09/19 20:50 18 115/73 60 09/09/19 20:30 98 18 105/57 (73) 99 09/09/19 20:15 99 18 105/55 (72) 98 09/09/19 20:00 105 09/09/19 20:00 60 09/09/19 20:00 98.8 99 18 112/60 (77) 98 09/09/19 20:00 18 105/55 Mechanical Ventilator 09/09/19 20:00 Mechanical Ventilator 09/09/19 19:30 100 18 103/53 (70) 99 09/09/19 19:07 18 108/50 Mechanical Ventilator 50 09/09/19 19:02 101 18 50 09/09/19 19:00 101 16 104/50 (68) 99 09/09/19 18:30 98 18 111/55 (73) 96 09/09/19 18:00 18 109/50 Mechanical Ventilator 40 09/09/19 18:00 94 18 108/50 (69) 93 09/09/19 17:40 93 18 50 Intake and Output 09/09/19 09/10/19 19:00 07:00 Intake Total 1670.991 ml 1583.703 ml Output Total 400 ml 480 ml Balance 1270.991 ml 1103.703 ml IV Total 1670.991 ml 1583.703 ml Output Urine Total 400 ml 480 ml Laboratory Tests 09/10/19 04:00: White Blood Count 16.3H, Red Blood Count 4.69L, Hemoglobin 12.7L, Hematocrit 38.2L, Mean Corpuscular Volume 81, Mean Corpuscular Hemoglobin 27.0, Mean Corpuscular Hemoglobin Concent 33.1, Red Cell Distribution Width 12.8, Platelet Count 298#, Mean Platelet Volume 7.9, Neutrophils (%) (Auto) 66.9, Lymphocytes ( %) (Auto) 24.9, Monocytes (%) (Auto) 6.6, Eosinophils (%) (Auto) 0.2, Basophils (%) (Auto) 1.3, Sodium Level 144, Potassium Level 3.3L, Chloride Level 106, Carbon Dioxide Level 28, Anion Gap 10, Blood Urea Nitrogen 16, Creatinine 1.6H, Estimat Glomerular Filtration Rate > 60, Glucose Level 117H, Calcium Level 8.6, Total Bilirubin 0.2, Aspartate Amino Transf (AST/SGOT) 21, Alanine Aminotransferase (ALT/SGPT) 39, Alkaline Phosphatase 87, Total Protein 6.3L, Albumin 2.7L, Globulin 3.6, Albumin/Globulin Ratio 0.8L, HIV (1&2) Antibody Rapid Negative 09/10/19 09:11: Arterial Blood pH 7.416, Arterial Blood Partial Pressure CO2 48.8H, Arterial Blood Partial Pressure O2 80.4, Arterial Blood HCO3 30.7H, Arterial Blood Oxygen Saturation 95.3, Arterial Blood Base Excess 5.1H, Jorge Test Positive 09/10/19 14:07: Arterial Blood pH 7.359, Arterial Blood Partial Pressure CO2 56.9*H, Arterial Blood Partial Pressure O2 122.5H, Arterial Blood HCO3 31.4H, Arterial Blood Oxygen Saturation 98.0, Arterial Blood Base Excess 4.3H, Jorge Test Positive Height (Feet): 6 Height (Inches): 0.00 Weight (Pounds): 352 General Appearance: no apparent distress, alert Neck: supple Cardiovascular: normal rate, regular rhythm Respiratory/Chest: lungs clear, normal breath sounds Abdomen: non tender, soft Aidan Chen MD Sep 10, 2019 17:37
--- NOTE | 2019-09-10 19:00 | NUR ---
NURSE NOTES: CALLED MD ANDERSON REGARDING PT STATUS POST EXTUBATION. VSS RR 20'S, SATING 96-100% COOL AEROSOL. INFORMED OF K 3.3, PT REQUESTING FOOD. RECEIVED ORDER CBC, BMP , CXR IN AM. REGULAR DIET. 20MEQ KCL IVP. WILL PLACE AND INFORMED ONCOMING R.N
--- NOTE | 2019-09-10 19:30 | NUR ---
NURSE NOTES: Received pt awake AOx4, just newly extubated, now on 30% cool aerosol, resp even and spont. pt occasionally coughing out whitish phlegm and suctioned himself, Pt on SR on the monitor. bp stable, afebrile. IVF NS at 100ml/hr infusing well per RT IJ. Site with drsg dry and intact , Howard to gravity with lg amt of yellowish urine. Monitor I and O. monitor lytes.
--- NOTE | 2019-09-10 19:35 | NUR ---
HAND-OFF: Report given to WOLFGANG Baumann PT IN NO ACUTE DISTRESS.
--- NOTE | 2019-09-10 20:00 | NUR ---
NURSE NOTES: Placed pt on 3L/nc, tolerating well 02 sat>95%
[2019-09-10] MEDS: Dyna-Hex 2% Top Sol 2oz TOPIC SCH (20:15)
[2019-09-10] MEDS ORDERED: Vancomycin 2gm/D5W 550ml IVPB ONE ×4 (20:30→21:30)
--- NOTE | 2019-09-10 21:00 | NUR ---
NURSE NOTES: Pts father called - updated with pts condition. verbalized understanding.
[2019-09-10] MEDS: Morphine Sulfate 4mg/ml Inj (IV USE ONLY) IVP PRN (21:03)
--- NOTE | 2019-09-10 21:03 | NUR ---
NURSE NOTES: Morphine 4mg ivp was given due to throat and back pain scale of 7(aching pain)- Morphine 4mg ivp was given.
--- NOTE | 2019-09-10 21:45 | NUR ---
NURSE NOTES: Pt verbalized pain level was 2.-encouraged for repositioned for comfort. Tolerating well.
--- NOTE | 2019-09-10 23:00 | NUR ---
NURSE NOTES: water was given per pt request. Tolerating well without difficulty.
[2019-09-10] MEDS: cefTRIAXone 1gm/D5W 55ml IVPB SCH ×2 (23:13)
[2019-09-11] VITALS (24 sets, daily range): BP systolic 105–170; BP diastolic 65–134
--- NOTE | 2019-09-11 01:00 | NUR ---
NURSE NOTES: Sleeping well at this time. No discomfort noted. 02 sat >95%.
--- NOTE | 2019-09-11 03:00 | NUR ---
NURSE NOTES: Am labs, was drawn. Complete bed bath with partial bed changed was done.
--- NOTE | 2019-09-11 05:00 | NUR ---
NURSE NOTES: Sleeping well at this time. No resp.distress noted. 02 sat >95.
[2019-09-11 05:23] LABS: HEMATOCRIT 38.9 % (42.0-52.0); HEMOGLOBIN 13.4 G/DL (14.2-18.0); MEAN CORPUSCULAR VOLUME 81 FL (80-99); PLATELET COUNT 278 K/UL (150-450); RED BLOOD COUNT 4.82 M/UL (4.70-6.10); RED CELL DISTRIBUTION WIDTH 12.6 % (11.6-14.8)
[2019-09-11 05:39] LABS: ANION GAP 6 mmol/L (5-15); BLOOD UREA NITROGEN 10 mg/dL (7-18); CALCIUM 8.7 MG/DL (8.5-10.1); CARBON DIOXIDE 34 MMOL/L (21-32); CHLORIDE 101 MMOL/L (98-107); CREATININE 1.1 MG/DL (0.55-1.30); POTASSIUM 3.4 MMOL/L (3.5-5.1); SODIUM 141 MMOL/L (136-145)
--- NOTE | 2019-09-11 07:21 | NUR ---
HAND-OFF: Report given to Tamia LYONS.
--- NOTE | 2019-09-11 07:22 | NUR ---
NURSE NOTES: Report received from SERENA Duarte. Pt observed laying bed, appears to be sleeping. Pt is easily arousable, A&Ox4. On 3L NC, O2Sat 98%, no respiratory distress noted. SR on car wrecker. Howard Catheter patent and draining to urometer. Rt IJ TLC noted, dressing dry and intact, running NS @100mL/hr. Rt AC #18 noted, asymptomatic, saline locked at this time. Bed locked and in lowest position, with call light within reach. Pt remains on droplet and airborne precautions. Will resume plan of care.
--- NOTE | 2019-09-11 07:50 | NUR ---
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 SERENA Cantrell informed.
--- NOTE | 2019-09-11 08:00 | NUR ---
NURSE NOTES: Dr Avila made aware of MRSA Nares (+) result.
[2019-09-11] MEDS: Pantoprazole Inj IVP SCH (08:31)
[2019-09-11] MEDS: Morphine Sulfate 4mg/ml Inj (IV USE ONLY) IVP PRN (08:32)
[2019-09-11] MEDS: Heparin 5000 units/ml inj SUBQ SCH ×2 (08:33→20:49)
--- NOTE | 2019-09-11 08:45 | NUR ---
RADIOLOGY DEPT., CHEST X-RAY DONE.-P.DYE
--- NOTE | 2019-09-11 09:00 | NUR ---
NURSE NOTES: Diana random blood draw collected and brought down to lab. Pt eating breakfast, tolerating well. Pt's mother brought primer charger for pt to charge his phone to be able to communicate with family.
--- NOTE | 2019-09-11 09:54 | Diagnostic Imaging Report ---
Indication: Shortness of breath Technique: One view of the chest Comparison: 09/09/2019 Findings: Body habitus limits evaluation. Right jugular central venous catheter is again demonstrated. There is decreased bilateral perihilar atelectasis. The heart is enlarged. Generalized hazy opacity persists bilaterally. Impression: Decreased bilateral perihilar atelectasis. 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
--- NOTE | 2019-09-11 10:10 | Pulmonology Progress Note ---
Assessment/Plan Assessment/Plan respiratory failure; now extuabted possible COVID 19; but doubt it lymphopenia sinus tachycardia + tox screen PLAN follow up ABG still has marked leucocytosis IV antibiotics per ID discussed with RN strict isolation await COVID-19 results Subjective Interval Events: Extuabted yesterday; much improved Constitutional: Reports: no symptoms HEENT: Repors: no symptoms Respiratory: Reports: no symptoms Cardiovascular: Reports: no symptoms Allergies: Coded Allergies: No Known Allergies (Unverified , 08/21/19) Objective Last 24 Hour Vital Signs Date Time Temp Pulse Resp B/P (MAP) Pulse Ox O2 Delivery O2 Flow Rate FiO2 09/11/19 09:00 Nasal Cannula 3.0 Nasal Cannula 3.0 09/11/19 09:00 113 18 143/99 (114) 96 09/11/19 08:00 73 09/11/19 08:00 98 Nasal Cannula 3.0 32 09/11/19 08:00 97.8 78 16 126/75 (92) 98 09/11/19 07:00 63 20 167/83 (111) 98 09/11/19 06:00 71 29 142/83 (102) 97 09/11/19 05:00 79 12 168/88 (114) 93 09/11/19 04:00 Nasal Cannula 3.0 Nasal Cannula 3.0 09/11/19 04:00 98.4 81 16 164/84 (110) 98 09/11/19 04:00 82 09/11/19 03:00 73 21 158/86 (110) 100 09/11/19 02:00 67 27 170/82 (111) 100 09/11/19 01:00 75 20 158/82 (107) 93 09/11/19 00:00 98.6 75 25 160/83 (108) 99 09/11/19 00:00 Nasal Cannula 3.0 Nasal Cannula 3.0 09/11/19 00:00 76 09/10/19 23:00 72 17 153/86 (108) 94 09/10/19 22:00 86 18 155/88 (110) 96 09/10/19 21:21 90 19 162/80 (107) 91 09/10/19 21:08 95 Nasal Cannula 3.0 32 09/10/19 21:00 88 23 137/86 (103) 100 09/10/19 20:00 98.8 93 19 147/90 (109) 99 09/10/19 20:00 Nasal Cannula 3.0 Nasal Cannula 3.0 09/10/19 20:00 78 09/10/19 19:30 90 23 98 09/10/19 19:00 86 26 134/95 (108) 96 09/10/19 18:30 09/10/19 18:19 97 Cool Aerosol 12.0 70 09/10/19 18:00 93 24 98/70 (79) 99 09/10/19 17:02 Simple Mask 15.0 70 09/10/19 17:00 83 23 143/76 (98) 99 09/10/19 16:00 94 09/10/19 16:00 Simple Mask 12.0 09/10/19 16:00 12.0 09/10/19 16:00 83 18 130/78 (95) 99 09/10/19 15:21 92 18 50 09/10/19 15:00 99 20 149/107 (121) 99 09/10/19 14:20 94 18 50 09/10/19 14:00 88 24 137/88 (104) 98 09/10/19 13:20 90 20 09/10/19 13:00 90 19 128/77 (94) 98 09/10/19 12:30 89 14 122/71 (88) 100 09/10/19 12:00 90 09/10/19 12:00 98.6 89 19 141/77 (98) 100 09/10/19 12:00 60 09/10/19 12:00 Mechanical Ventilator 09/10/19 11:30 90 19 161/106 (124) 100 09/10/19 11:00 19 154/109 Mechanical Ventilator 09/10/19 11:00 87 2 158/108 (125) 99 09/10/19 10:51 88 18 50 09/10/19 10:30 95 12 151/108 (122) 98 Intake and Output 09/10/19 09/11/19 19:00 07:00 Intake Total 1055.892 ml 1725 ml Output Total 730 ml 1600 ml Balance 325.892 ml 125 ml Intake Oral 470 ml IV Total 1055.892 ml 1255 ml Output Urine Total 730 ml 1600 ml General Appearance: no acute distress HEENT: normocephalic Respiratory/Chest: chest wall non-tender Cardiovascular: normal peripheral pulses Abdomen: normal bowel sounds Microbiology Date/Time Source Procedure Growth Status 09/09/19 00:30 Blood Blood Culture - Preliminary NO GROWTH AFTER 48 HOURS Resulted 09/09/19 00:15 Blood Blood Culture - Preliminary Staphylococcus Sp Coag Neg Resulted 09/09/19 01:15 Nasal Nares MRSA Culture - Final Staphylococcus Aureus - Mrsa Complete 09/08/19 20:30 Nose - Final Complete 09/08/19 20:30 Nose - Final Complete 09/09/19 01:15 Rectum - Final NO CARBAPENEM-RESISTANT ENTEROBACTERI... Complete 09/09/19 01:15 Rectum VRE Culture - Final NO VANCOMYCIN RESISTANT ENTEROCOCCUS ... Complete Laboratory Tests 09/10/19 14:07: Arterial Blood pH 7.359, Arterial Blood Partial Pressure CO2 56.9*H, Arterial Blood Partial Pressure O2 122.5H, Arterial Blood HCO3 31.4H, Arterial Blood Oxygen Saturation 98.0, Arterial Blood Base Excess 4.3H, Jorge Test Positive 09/11/19 03:40: White Blood Count 18.0H, Red Blood Count 4.82, Hemoglobin 13.4L, Hematocrit 38.9L, Mean Corpuscular Volume 81, Mean Corpuscular Hemoglobin 27.7, Mean Corpuscular Hemoglobin Concent 34.3, Red Cell Distribution Width 12.6, Platelet Count 278, Mean Platelet Volume 7.3, Neutrophils (%) (Auto) , Lymphocytes (%) ( Auto) , Monocytes (%) (Auto) , Eosinophils (%) (Auto) , Basophils (%) (Auto) , Differential Total Cells Counted 100, Neutrophils % (Manual) 80H, Lymphocytes % (Manual) 10L, Monocytes % (Manual) 7, Eosinophils % (Manual) 3, Basophils % ( Manual) 0, Band Neutrophils 0, Platelet Estimate Adequate, Platelet Morphology Normal, Sodium Level 141, Potassium Level 3.4L, Chloride Level 101, Carbon Dioxide Level 34H, Anion Gap 6, Blood Urea Nitrogen 10, Creatinine 1.1, Estimat Glomerular Filtration Rate > 60, Glucose Level 97, Calcium Level 8.7 09/11/19 09:00: Triglycerides Level 233H, Random Vancomycin Level [Pending] Current Medications Medications (Trade) Dose Ordered Sig/Tamara Route PRN Reason Start Time Stop Time Status Last Admin Dose Admin Ceftriaxone Sodium 1 gm/ Dextrose 55 ml @ 110 mls/hr Q24H IVPB 09/09/19 23:00 09/16/19 22:59 09/10/19 23:13 Chlorhexidine Gluconate (Zora-Hex 2%) 1 applic DAILY@2000 TOPIC 09/10/19 20:00 10/10/19 19:59 09/10/19 20:15 Heparin Sodium (Porcine) (Heparin 5000 units/ml) 5,000 units EVERY 12 HOURS SUBQ 09/09/19 09:00 10/24/19 08:59 09/11/19 08:33 Morphine Sulfate (Morphine Sulfate) 4 mg Q4H PRN IVP PAIN 4-10 09/09/19 09:00 09/16/19 08:59 09/11/19 08:32 Ondansetron HCl (Zofran) 4 mg Q6H PRN IVP Nausea & Vomiting 09/09/19 09:00 10/09/19 08:59 Pantoprazole (Protonix) 40 mg DAILY IVP 09/09/19 09:30 10/09/19 09:29 09/11/19 08:31 Sodium Chloride 1,000 ml @ 100 mls/hr Q10H IV 09/09/19 09:30 10/09/19 09:29 09/11/19 02:13 Vancomycin HCl (Vanco rx to dose) 1 ea DAILY PRN MISC Per rx protocol 09/10/19 20:00 10/10/19 19:59 Samir Gardner MD Sep 11, 2019 10:10
--- NOTE | 2019-09-11 10:50 | Infectious Diseases Prog Note ---
Assessment/Plan Assessment/Plan antibiotics : vancomycin iv, ceftriaxone A 1. pneumonia 2. respiratory failure resolved 3. sleep apnea 4. leucocytosis 5. obesity 6. drug use P 1. continue iv vancomycin 2. d/c ceftriaxone 3. start cefepime 4. will follow up cultures, CT chest 5. UA and urine cultures Subjective Constitutional: Denies: fever, chills Respiratory: Reports: shortness of breath - decreased, productive cough - decreased Gastrointestinal/Abdominal: Denies: nausea, vomiting, diarrhea Genitourinary: Reports: dysuria Allergies: Coded Allergies: No Known Allergies (Unverified , 08/21/19) Objective Vital Signs Last 24 Hour Vital Signs Date Time Temp Pulse Resp B/P (MAP) Pulse Ox O2 Delivery O2 Flow Rate FiO2 09/11/19 10:00 103 21 141/118 (126) 80 09/11/19 09:00 Nasal Cannula 3.0 Nasal Cannula 3.0 09/11/19 09:00 113 18 143/99 (114) 96 09/11/19 08:00 73 09/11/19 08:00 98 Nasal Cannula 3.0 32 09/11/19 08:00 97.8 78 16 126/75 (92) 98 09/11/19 07:00 63 20 167/83 (111) 98 09/11/19 06:00 71 29 142/83 (102) 97 09/11/19 05:00 79 12 168/88 (114) 93 09/11/19 04:00 Nasal Cannula 3.0 Nasal Cannula 3.0 09/11/19 04:00 98.4 81 16 164/84 (110) 98 09/11/19 04:00 82 09/11/19 03:00 73 21 158/86 (110) 100 09/11/19 02:00 67 27 170/82 (111) 100 09/11/19 01:00 75 20 158/82 (107) 93 09/11/19 00:00 98.6 75 25 160/83 (108) 99 09/11/19 00:00 Nasal Cannula 3.0 Nasal Cannula 3.0 09/11/19 00:00 76 09/10/19 23:00 72 17 153/86 (108) 94 09/10/19 22:00 86 18 155/88 (110) 96 09/10/19 21:21 90 19 162/80 (107) 91 09/10/19 21:08 95 Nasal Cannula 3.0 32 09/10/19 21:00 88 23 137/86 (103) 100 09/10/19 20:00 98.8 93 19 147/90 (109) 99 09/10/19 20:00 Nasal Cannula 3.0 Nasal Cannula 3.0 09/10/19 20:00 78 09/10/19 19:30 90 23 98 09/10/19 19:00 86 26 134/95 (108) 96 09/10/19 18:30 09/10/19 18:19 97 Cool Aerosol 12.0 70 09/10/19 18:00 93 24 98/70 (79) 99 09/10/19 17:02 Simple Mask 15.0 70 09/10/19 17:00 83 23 143/76 (98) 99 09/10/19 16:00 94 09/10/19 16:00 Simple Mask 12.0 09/10/19 16:00 12.0 09/10/19 16:00 83 18 130/78 (95) 99 09/10/19 15:21 92 18 50 09/10/19 15:00 99 20 149/107 (121) 99 09/10/19 14:20 94 18 50 09/10/19 14:00 88 24 137/88 (104) 98 09/10/19 13:20 90 20 09/10/19 13:00 90 19 128/77 (94) 98 09/10/19 12:30 89 14 122/71 (88) 100 09/10/19 12:00 90 09/10/19 12:00 98.6 89 19 141/77 (98) 100 09/10/19 12:00 60 09/10/19 12:00 Mechanical Ventilator 09/10/19 11:30 90 19 161/106 (124) 100 09/10/19 11:00 19 154/109 Mechanical Ventilator 09/10/19 11:00 87 2 158/108 (125) 99 09/10/19 10:51 88 18 50 Height (Feet): 6 Height (Inches): 0.00 Weight (Pounds): 349 Respiratory/Chest: lungs clear Cardiovascular: normal rate, regular rhythm, no gallop/murmur Abdomen: soft, non tender Extremities: no edema Microbiology Date/Time Source Procedure Growth Status 09/09/19 00:30 Blood Blood Culture - Preliminary NO GROWTH AFTER 48 HOURS Resulted 09/09/19 00:15 Blood Blood Culture - Preliminary Staphylococcus Sp Coag Neg Resulted 09/09/19 01:15 Nasal Nares MRSA Culture - Final Staphylococcus Aureus - Mrsa Complete 09/08/19 20:30 Nose - Final Complete 09/08/19 20:30 Nose - Final Complete 09/09/19 01:15 Rectum - Final NO CARBAPENEM-RESISTANT ENTEROBACTERI... Complete 09/09/19 01:15 Rectum VRE Culture - Final NO VANCOMYCIN RESISTANT ENTEROCOCCUS ... Complete Laboratory Tests Test 09/10/19 14:07 09/11/19 03:40 09/11/19 09:00 Arterial Blood pH 7.359 (7.350-7.450) Arterial Blood Partial Pressure CO2 56.9 mmHg (35.0-45.0) *H Arterial Blood Partial Pressure O2 122.5 mmHg (75.0-100.0) H Arterial Blood HCO3 31.4 mmol/L (22.0-26.0) H Arterial Blood Oxygen Saturation 98.0 % (95-100) Arterial Blood Base Excess 4.3 (-2-2) H Jorge Test Positive White Blood Count 18.0 K/UL (4.8-10.8) H Red Blood Count 4.82 M/UL (4.70-6.10) Hemoglobin 13.4 G/DL (14.2-18.0) L Hematocrit 38.9 % (42.0-52.0) L Mean Corpuscular Volume 81 FL (80-99) Mean Corpuscular Hemoglobin 27.7 PG (27.0-31.0) Mean Corpuscular Hemoglobin Concent 34.3 G/DL (32.0-36.0) Red Cell Distribution Width 12.6 % (11.6-14.8) Platelet Count 278 K/UL (150-450) Mean Platelet Volume 7.3 FL (6.5-10.1) Neutrophils (%) (Auto) % (45.0-75.0) Lymphocytes (%) (Auto) % (20.0-45.0) Monocytes (%) (Auto) % (1.0-10.0) Eosinophils (%) (Auto) % (0.0-3.0) Basophils (%) (Auto) % (0.0-2.0) Differential Total Cells Counted 100 Neutrophils % (Manual) 80 % (45-75) H Lymphocytes % (Manual) 10 % (20-45) L Monocytes % (Manual) 7 % (1-10) Eosinophils % (Manual) 3 % (0-3) Basophils % (Manual) 0 % (0-2) Band Neutrophils 0 % (0-8) Platelet Estimate Adequate Platelet Morphology Normal Sodium Level 141 MMOL/L (136-145) Potassium Level 3.4 MMOL/L (3.5-5.1) L Chloride Level 101 MMOL/L (98-107) Carbon Dioxide Level 34 MMOL/L (21-32) H Anion Gap 6 mmol/L (5-15) Blood Urea Nitrogen 10 mg/dL (7-18) Creatinine 1.1 MG/DL (0.55-1.30) Estimat Glomerular Filtration Rate > 60 mL/min (>60) Glucose Level 97 MG/DL (74-106) Calcium Level 8.7 MG/DL (8.5-10.1) Triglycerides Level 233 MG/DL (30-150) H Random Vancomycin Level 5.7 ug/mL Current Medications Medications (Trade) Dose Ordered Sig/Tamara Route PRN Reason Start Time Stop Time Status Last Admin Dose Admin Ceftriaxone Sodium 1 gm/ Dextrose 55 ml @ 110 mls/hr Q24H IVPB 09/09/19 23:00 09/16/19 22:59 09/10/19 23:13 Chlorhexidine Gluconate (Zora-Hex 2%) 1 applic DAILY@2000 TOPIC 09/10/19 20:00 10/10/19 19:59 09/10/19 20:15 Heparin Sodium (Porcine) (Heparin 5000 units/ml) 5,000 units EVERY 12 HOURS SUBQ 09/09/19 09:00 10/24/19 08:59 09/11/19 08:33 Morphine Sulfate (Morphine Sulfate) 4 mg Q4H PRN IVP PAIN 4-10 09/09/19 09:00 09/16/19 08:59 09/11/19 08:32 Ondansetron HCl (Zofran) 4 mg Q6H PRN IVP Nausea & Vomiting 09/09/19 09:00 10/09/19 08:59 Pantoprazole (Protonix) 40 mg DAILY IVP 09/09/19 09:30 10/09/19 09:29 09/11/19 08:31 Sodium Chloride 1,000 ml @ 100 mls/hr Q10H IV 09/09/19 09:30 10/09/19 09:29 09/11/19 02:13 Vancomycin HCl (Vanco rx to dose) 1 ea DAILY PRN MISC Per rx protocol 09/10/19 20:00 10/10/19 19:59 Dari Avila MD Sep 11, 2019 10:50
--- NOTE | 2019-09-11 10:58 | Consultation ---
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 he notes decreased PO intake over the past several days. Allergies: Coded Allergies: No Known Allergies (Unverified , 08/21/19) Medication History Scheduled Methocarbamol* (Robaxin-500*), 500 MG ORAL TID Scheduled PRN Albuterol Sulfate* (Albuterol Sulfate Hhn*), 3 ML INH Q6H PRN for Shortness of Breath, (Reported) Patient History Healthcare decision maker Resuscitation status Full Code Advanced Directive on File Review of Systems Constitutional: Reports: chills, sweats, weakness ENT: Denies: no symptoms, see HPI, ear pain, ear discharge, nose pain, nose congestion, throat pain, throat swelling, mouth pain, hearing loss, nasal discharge, other Respiratory: Denies: no symptoms, see HPI, cough, orthopnea, shortness of breath, stridor, wheezing, HUDSON, sputum, other Cardiovascular: Denies: no symptoms, see HPI, chest pain, edema, palpitations, syncope, PND, other Gastrointestinal: Denies: no symptoms, see HPI, abdominal pain, constipation, diarrhea, nausea, vomiting, melena, hematemesis, other All Other Systems: negative except mentioned in HPI Physical Exam General Appearance: WD/WN, no apparent distress HEENT: normocephalic, atraumatic Neck: non-tender Respiratory/Chest: chest wall non-tender, lungs clear Cardiovascular/Chest: normal rate, regular rhythm Abdomen: soft Skin Exam: normal pigmentation Neurologic: alert, oriented x 3 Last 24 Hour Vital Signs Date Time Temp Pulse Resp B/P (MAP) Pulse Ox O2 Delivery O2 Flow Rate FiO2 09/11/19 10:00 103 21 141/118 (126) 80 09/11/19 09:00 Nasal Cannula 3.0 Nasal Cannula 3.0 09/11/19 09:00 113 18 143/99 (114) 96 09/11/19 08:00 73 09/11/19 08:00 98 Nasal Cannula 3.0 32 09/11/19 08:00 97.8 78 16 126/75 (92) 98 09/11/19 07:00 63 20 167/83 (111) 98 09/11/19 06:00 71 29 142/83 (102) 97 09/11/19 05:00 79 12 168/88 (114) 93 09/11/19 04:00 Nasal Cannula 3.0 Nasal Cannula 3.0 09/11/19 04:00 98.4 81 16 164/84 (110) 98 09/11/19 04:00 82 09/11/19 03:00 73 21 158/86 (110) 100 09/11/19 02:00 67 27 170/82 (111) 100 09/11/19 01:00 75 20 158/82 (107) 93 09/11/19 00:00 98.6 75 25 160/83 (108) 99 09/11/19 00:00 Nasal Cannula 3.0 Nasal Cannula 3.0 09/11/19 00:00 76 09/10/19 23:00 72 17 153/86 (108) 94 09/10/19 22:00 86 18 155/88 (110) 96 09/10/19 21:21 90 19 162/80 (107) 91 09/10/19 21:08 95 Nasal Cannula 3.0 32 09/10/19 21:00 88 23 137/86 (103) 100 09/10/19 20:00 98.8 93 19 147/90 (109) 99 09/10/19 20:00 Nasal Cannula 3.0 Nasal Cannula 3.0 09/10/19 20:00 78 09/10/19 19:30 90 23 98 09/10/19 19:00 86 26 134/95 (108) 96 09/10/19 18:30 09/10/19 18:19 97 Cool Aerosol 12.0 70 09/10/19 18:00 93 24 98/70 (79) 99 09/10/19 17:02 Simple Mask 15.0 70 09/10/19 17:00 83 23 143/76 (98) 99 09/10/19 16:00 94 09/10/19 16:00 Simple Mask 12.0 09/10/19 16:00 12.0 09/10/19 16:00 83 18 130/78 (95) 99 09/10/19 15:21 92 18 50 09/10/19 15:00 99 20 149/107 (121) 99 09/10/19 14:20 94 18 50 09/10/19 14:00 88 24 137/88 (104) 98 09/10/19 13:20 90 20 09/10/19 13:00 90 19 128/77 (94) 98 09/10/19 12:30 89 14 122/71 (88) 100 09/10/19 12:00 90 09/10/19 12:00 98.6 89 19 141/77 (98) 100 09/10/19 12:00 60 09/10/19 12:00 Mechanical Ventilator 09/10/19 11:30 90 19 161/106 (124) 100 09/10/19 11:00 19 154/109 Mechanical Ventilator 09/10/19 11:00 87 2 158/108 (125) 99 Intake and Output 09/10/19 09/11/19 19:00 07:00 Intake Total 1055.892 ml 1725 ml Output Total 730 ml 1600 ml Balance 325.892 ml 125 ml Intake Oral 470 ml IV Total 1055.892 ml 1255 ml Output Urine Total 730 ml 1600 ml Laboratory Tests Test 09/10/19 14:07 09/11/19 03:40 09/11/19 09:00 Arterial Blood pH 7.359 (7.350-7.450) Arterial Blood Partial Pressure CO2 56.9 mmHg (35.0-45.0) *H Arterial Blood Partial Pressure O2 122.5 mmHg (75.0-100.0) H Arterial Blood HCO3 31.4 mmol/L (22.0-26.0) H Arterial Blood Oxygen Saturation 98.0 % (95-100) Arterial Blood Base Excess 4.3 (-2-2) H Jroge Test Positive White Blood Count 18.0 K/UL (4.8-10.8) H Red Blood Count 4.82 M/UL (4.70-6.10) Hemoglobin 13.4 G/DL (14.2-18.0) L Hematocrit 38.9 % (42.0-52.0) L Mean Corpuscular Volume 81 FL (80-99) Mean Corpuscular Hemoglobin 27.7 PG (27.0-31.0) Mean Corpuscular Hemoglobin Concent 34.3 G/DL (32.0-36.0) Red Cell Distribution Width 12.6 % (11.6-14.8) Platelet Count 278 K/UL (150-450) Mean Platelet Volume 7.3 FL (6.5-10.1) Neutrophils (%) (Auto) % (45.0-75.0) Lymphocytes (%) (Auto) % (20.0-45.0) Monocytes (%) (Auto) % (1.0-10.0) Eosinophils (%) (Auto) % (0.0-3.0) Basophils (%) (Auto) % (0.0-2.0) Differential Total Cells Counted 100 Neutrophils % (Manual) 80 % (45-75) H Lymphocytes % (Manual) 10 % (20-45) L Monocytes % (Manual) 7 % (1-10) Eosinophils % (Manual) 3 % (0-3) Basophils % (Manual) 0 % (0-2) Band Neutrophils 0 % (0-8) Platelet Estimate Adequate Platelet Morphology Normal Sodium Level 141 MMOL/L (136-145) Potassium Level 3.4 MMOL/L (3.5-5.1) L Chloride Level 101 MMOL/L (98-107) Carbon Dioxide Level 34 MMOL/L (21-32) H Anion Gap 6 mmol/L (5-15) Blood Urea Nitrogen 10 mg/dL (7-18) Creatinine 1.1 MG/DL (0.55-1.30) Estimat Glomerular Filtration Rate > 60 mL/min (>60) Glucose Level 97 MG/DL (74-106) Calcium Level 8.7 MG/DL (8.5-10.1) Triglycerides Level 233 MG/DL (30-150) H Random Vancomycin Level 5.7 ug/mL Height (Feet): 6 Height (Inches): 0.00 Weight (Pounds): 349 Medications Current Medications Medications (Trade) Dose Ordered Sig/Tamara Route PRN Reason Start Time Stop Time Status Last Admin Dose Admin Cefepime HCl 2 gm/ Dextrose 55 ml @ 110 mls/hr EVERY 12 HOURS IVPB 09/11/19 12:00 09/18/19 11:59 Chlorhexidine Gluconate (Zora-Hex 2%) 1 applic DAILY@2000 TOPIC 09/10/19 20:00 10/10/19 19:59 09/10/19 20:15 Heparin Sodium (Porcine) (Heparin 5000 units/ml) 5,000 units EVERY 12 HOURS SUBQ 09/09/19 09:00 10/24/19 08:59 09/11/19 08:33 Morphine Sulfate (Morphine Sulfate) 4 mg Q4H PRN IVP PAIN 4-10 09/09/19 09:00 09/16/19 08:59 09/11/19 08:32 Ondansetron HCl (Zofran) 4 mg Q6H PRN IVP Nausea & Vomiting 09/09/19 09:00 10/09/19 08:59 Pantoprazole (Protonix) 40 mg DAILY IVP 09/09/19 09:30 10/09/19 09:29 09/11/19 08:31 Sodium Chloride 1,000 ml @ 100 mls/hr Q10H IV 09/09/19 09:30 10/09/19 09:29 09/11/19 02:13 Vancomycin HCl (Vanco rx to dose) 1 ea DAILY PRN MISC Per rx protocol 09/10/19 20:00 10/10/19 19:59 Assessment/Plan Diagnosis [place]: #JESE- pre-renal - improved with hydration. #hypokalemia #resp failure #weakness #viral syndrome #KRISTIAN #obesity #h/o drug use - DC IVF today - replete K - monitor lytes - antibiotics per ID - montior renal function - pending COVID-19 results - pulm eval - monitor leukocytosis - monitor ABG Shania Kendrick M.D. Sep 11, 2019 10:58
--- NOTE | 2019-09-11 11:00 | NUR ---
NURSE NOTES: Pt is observed sitting up in bed, awake and alert. No respiratory distress noted, O2Sat 99%.
--- NOTE | 2019-09-11 11:27 | NUR ---
*-* INSURANCE *-* ALL CLINICALS AND REVIEWS HAVE BEEN FAXED TO: [facility] FAX NOTIFICATIONS AND CLINICALS TO: [phone]
[2019-09-11] MEDS: Cefepime HCl 2 GM in D5W 55 ML IVPB SCH ×2 (11:43→20:46)
--- NOTE | 2019-09-11 12:00 | NUR ---
NURSE NOTES: Urine collected and sent to lab and Howard catheter removed, as per MD order.
--- NOTE | 2019-09-11 13:00 | NUR ---
NURSE NOTES: Pt is observed sitting in bed, awake and alert, watching TV, eating lunch. No respiratory distress noted, O2Sat 96%, remains on 3L NC.
[2019-09-11] MEDS: Vancomycin 1.25gm/NS Premix IVPB SCH ×2 (13:15→21:43)
--- NOTE | 2019-09-11 14:22 | General Progress Note ---
Assessment/Plan Status: stable, not improved, unchanged Assessment/Plan: Mr. Fournier is a 24 year old M w/ hx of asthma, morbid obesity, KRISTIAN, presenting with weakness, respiratory failure, and pneumonia #Acute hypoxic, hypercapneic respiratory failure, requiring intubation. #Severe sepsis #Pneumonia #Possible COVID-19 #ARDS -Extubated 09/09 -Off sedation. -Cont Vanco -Ceftriaxoen changed to cefepime -Appreciate ID recs. -s/p steroid x1. -f/u Covid testing. Isolation in the meantime. #Morbid obesity #Presumed KRISTIAN #Presumed obesity hypoventilation syndrome -CPAP outpatient. -Pulm following -Weight loss counseling. #Substance abuse Amphetamine, cocaine, THC positive on urine. I spent 75 minutes on this patient's case, and 40 mins was dedicated to critical care Critical Care Services performed include: Telemetry Review Hemodynamic measurement interpretation Laboratory data review and interpretation Radiology image review and interpretation Discussion of patient's care with ICU team, ICU Nursing staff and/or consulting services Time of note may not reflect time of encounter. Subjective Date patient seen: Sep 11, 2019 Time patient seen: 11:55 ROS Limited/Unobtainable: No Constitutional: Denies: chills, fever Cardiovascular: Denies: chest pain Respiratory: Denies: cough, orthopnea, shortness of breath Gastrointestinal/Abdominal: Denies: abdomen distended, abdominal pain Neurologic/Psychiatric: Denies: anxiety Endocrine: Denies: excessive sweating Allergies: Coded Allergies: No Known Allergies (Unverified , 08/21/19) Subjective Covering for Dr. Chen Follow up for acute hypoxic resp failure, CAP, possible COVID-19, morbid obesity Patient extubated, feeling well. Denies dyspnea, chest pain Asking for Howard to be removed Objective Last 24 Hour Vital Signs Date Time Temp Pulse Resp B/P (MAP) Pulse Ox O2 Delivery O2 Flow Rate FiO2 09/11/19 13:00 89 19 137/92 (107) 98 09/11/19 12:00 98.9 93 16 123/73 (90) 100 09/11/19 12:00 102 09/11/19 12:00 Nasal Cannula 3.0 Nasal Cannula 3.0 09/11/19 11:00 95 15 160/99 (119) 96 09/11/19 10:00 103 21 141/118 (126) 80 09/11/19 09:00 Nasal Cannula 3.0 Nasal Cannula 3.0 09/11/19 09:00 113 18 143/99 (114) 96 09/11/19 08:00 73 09/11/19 08:00 98 Nasal Cannula 3.0 32 09/11/19 08:00 97.8 78 16 126/75 (92) 98 09/11/19 07:00 63 20 167/83 (111) 98 09/11/19 06:00 71 29 142/83 (102) 97 09/11/19 05:00 79 12 168/88 (114) 93 09/11/19 04:00 Nasal Cannula 3.0 Nasal Cannula 3.0 09/11/19 04:00 98.4 81 16 164/84 (110) 98 09/11/19 04:00 82 09/11/19 03:00 73 21 158/86 (110) 100 09/11/19 02:00 67 27 170/82 (111) 100 09/11/19 01:00 75 20 158/82 (107) 93 09/11/19 00:00 98.6 75 25 160/83 (108) 99 09/11/19 00:00 Nasal Cannula 3.0 Nasal Cannula 3.0 09/11/19 00:00 76 09/10/19 23:00 72 17 153/86 (108) 94 09/10/19 22:00 86 18 155/88 (110) 96 09/10/19 21:21 90 19 162/80 (107) 91 09/10/19 21:08 95 Nasal Cannula 3.0 32 09/10/19 21:00 88 23 137/86 (103) 100 09/10/19 20:00 98.8 93 19 147/90 (109) 99 09/10/19 20:00 Nasal Cannula 3.0 Nasal Cannula 3.0 09/10/19 20:00 78 09/10/19 19:30 90 23 98 09/10/19 19:00 86 26 134/95 (108) 96 09/10/19 18:30 09/10/19 18:19 97 Cool Aerosol 12.0 70 09/10/19 18:00 93 24 98/70 (79) 99 09/10/19 17:02 Simple Mask 15.0 70 09/10/19 17:00 83 23 143/76 (98) 99 09/10/19 16:00 94 09/10/19 16:00 Simple Mask 12.0 09/10/19 16:00 12.0 09/10/19 16:00 83 18 130/78 (95) 99 09/10/19 15:21 92 18 50 09/10/19 15:00 99 20 149/107 (121) 99 09/10/19 14:20 94 18 50 Intake and Output 09/10/19 09/11/19 19:00 07:00 Intake Total 1055.892 ml 1725 ml Output Total 730 ml 1600 ml Balance 325.892 ml 125 ml Intake Oral 470 ml IV Total 1055.892 ml 1255 ml Output Urine Total 730 ml 1600 ml Laboratory Tests 09/11/19 03:40: White Blood Count 18.0H, Red Blood Count 4.82, Hemoglobin 13.4L, Hematocrit 38.9L, Mean Corpuscular Volume 81, Mean Corpuscular Hemoglobin 27.7, Mean Corpuscular Hemoglobin Concent 34.3, Red Cell Distribution Width 12.6, Platelet Count 278, Mean Platelet Volume 7.3, Neutrophils (%) (Auto) , Lymphocytes (%) ( Auto) , Monocytes (%) (Auto) , Eosinophils (%) (Auto) , Basophils (%) (Auto) , Differential Total Cells Counted 100, Neutrophils % (Manual) 80H, Lymphocytes % (Manual) 10L, Monocytes % (Manual) 7, Eosinophils % (Manual) 3, Basophils % ( Manual) 0, Band Neutrophils 0, Platelet Estimate Adequate, Platelet Morphology Normal, Sodium Level 141, Potassium Level 3.4L, Chloride Level 101, Carbon Dioxide Level 34H, Anion Gap 6, Blood Urea Nitrogen 10, Creatinine 1.1, Estimat Glomerular Filtration Rate > 60, Glucose Level 97, Calcium Level 8.7 09/11/19 09:00: Triglycerides Level 233H, Random Vancomycin Level 5.7 Height (Feet): 6 Height (Inches): 0.00 Weight (Pounds): 349 Spencer Hall MD Sep 11, 2019 14:22
--- NOTE | 2019-09-11 14:46 | NUR ---
BATH TESTERCORRUGATOR 09/11/19 SI: RESP FAILURE . PNA . SEPSIS . KRISTIAN (OBSTRUCTIVE SLEEP APNEA) 97.8 103 21 141/118 80% ON 3L NC FiO2 32 ABG (09/10/19): pCO2-56.9 pO2 122.5 HCO3-31.4 WBC 18.0 TRIGLY 233 K+ 3.4 IS: K-DUR PO X1 IV VANCOMYCIN TID IV ROCEPHIN BID HEPARIN SQ BID IV PROTONIX QD \: PLAN: EXTUBATED 09/10/19 WEIGHT LOSS COUNSELING
--- NOTE | 2019-09-11 15:00 | NUR ---
NURSE NOTES: Pt repositioned and cleaned. No distress noted at this time, No concerns voiced.
--- NOTE | 2019-09-11 17:02 | NUR ---
SAWMILL HAND NOTE SW observed pt awake, using his cellphone. SW spoke w/ pt via phone call #[phone]. Pt presents as A&O4x. Pt reports he has been homeless since this month, staying in his car. RUDS positive for Cocaine, amphetamine and THC. Pt admits such substance abuse, reporting he has been using THC every day and other substances occasionally. PT does not have AD/POA. Per pt, Barbara Borges (mother) will be the decision maker if pt cannot make one. Other emergency contacts are listed: Emiliano Fournier (father) [phone], Ava Dwyer (grandmother) [phone] Pt is currently unemployed and receiving GR only. Pt is requesting recuperative care. BRIAN informed pt that there are criteria for recuperative care, and yet pt needs medical condition that needs to be treated at this time. BRIAN will continue to F/U w/ dc planning. Signed: 09/11/19 at 1709 by ANA LILIA TORRES <Co-Signature Required>
[2019-09-11 17:57] LABS: APPEARANCE,URINE CLEAR; BILIRUBIN, URINE NEGATIVE (NEGATIVE); COLOR,URINE PALE YELLOW; GLUCOSE, URINE (UA) NEGATIVE (NEGATIVE); KETONES,URINE 2+ (NEGATIVE); LEUKOCYTE ESTERASE ,URINE NEGATIVE (NEGATIVE); NITRITE,URINE NEGATIVE (NEGATIVE); PH,URINE 7 (4.5-8.0); PROTEIN,URINE 1+ (NEGATIVE); UROBILINOGEN,URINE NORMAL MG/DL (0.0-1.0)
--- NOTE | 2019-09-11 18:00 | NUR ---
NURSE NOTES: Pt currently eating dinner with no distress noted. Left message for Dr Gardner in regards to pt's high B/P; currently 156/134. Awaiting call back.
--- NOTE | 2019-09-11 19:18 | NUR ---
HAND-OFF: Report given to SERENA Duarte.
--- NOTE | 2019-09-11 19:30 | NUR ---
NURSE NOTES: Received pt awake and alert AO x4, MAEx4 on 02 at 3l/nc, 02 sat >95%, occasionally coughing out whitish phlegm and suctioned himself,SR on the monitor, bp stable, afebrile. Pt on active isolation of mRSA nares and suspected isolation of cOVID-19, good handwashing technique observed and droplet precautions. Pt has RT IJ central line with drsg dry and intact. NS TKO rate infusing at this time. Voiding well per urinal yellowish colored urine. Monitor I and O. Monitor lytes. Will continue to monitor.
[2019-09-11] MEDS: Dyna-Hex 2% Top Sol 2oz TOPIC SCH (20:02)
--- NOTE | 2019-09-11 21:30 | NUR ---
NURSE NOTES: partial bath was given., pt sit at the edge of the bed, assisted and tolerating well.
--- NOTE | 2019-09-11 21:57 | NUR ---
NURSE NOTES: Watching tv at this time. No resp. distress noted.
--- NOTE | 2019-09-11 23:00 | NUR ---
NURSE NOTES: HS snack given per pt request.
[2019-09-12] VITALS (24 sets, daily range): BP systolic 104–158; BP diastolic 62–111
--- NOTE | 2019-09-12 | NUR ---
NURSE NOTES: sleeping well at this time NSR 89/min, bp 124/65, 02 sat 100%
--- NOTE | 2019-09-12 02:00 | NUR ---
NURSE NOTES: Resting well at this time NSR 80 BP 116/62 RR 24/min 02 sat 100%.
--- NOTE | 2019-09-12 04:00 | NUR ---
NURSE NOTES: Noted pt desat to <90%, when deeply asleep.Woke up pt and instructed to do deep breathing exercise. VSS temp 97.6 HR 87 BP 140/64. Refused bath at this time. Partial linens changed.
[2019-09-12 05:36] LABS: ANION GAP 4 mmol/L (5-15); BLOOD UREA NITROGEN 9 mg/dL (7-18); CALCIUM 9.1 MG/DL (8.5-10.1); CARBON DIOXIDE 36 MMOL/L (21-32); CHLORIDE 104 MMOL/L (98-107); POTASSIUM 3.8 MMOL/L (3.5-5.1); SODIUM 144 MMOL/L (136-145)
[2019-09-12 05:41] LABS: BASOPHILS % (AUTO) 1.2 % (0.0-2.0); EOSINOPHILS % (AUTO) 3.5 % (0.0-3.0); HEMATOCRIT 41.2 % (42.0-52.0); HEMOGLOBIN 13.4 G/DL (14.2-18.0); LYMPHOCYTES % (AUTO) 15.4 % (20.0-45.0); MEAN CORPUSCULAR VOLUME 82 FL (80-99); MONOCYTES % (AUTO) 5.7 % (1.0-10.0); NEUTROPHILS % (AUTO) 74.2 % (45.0-75.0); PLATELET COUNT 274 K/UL (150-450); RED BLOOD COUNT 5.02 M/UL (4.70-6.10); RED CELL DISTRIBUTION WIDTH 12.6 % (11.6-14.8)
--- NOTE | 2019-09-12 05:51 | NUR ---
NURSE NOTES: Condition unchanged. Placed on fall precaution, Bed alarms and brake on. call lights within reached.
[2019-09-12] MEDS: Vancomycin 1.25gm/NS Premix IVPB SCH (07:14)
--- NOTE | 2019-09-12 07:25 | NUR ---
HAND-OFF: Report given to Milton LYONS for continuity of care.
--- NOTE | 2019-09-12 07:28 | NUR ---
NURSE NOTES: Received report from SERENA Duarte. Patient is alert and oriented. Afebrile. He is on O2 3L/min via NC. SR 80 on the monitor. Right IJ TLC intact, clean and running with vanco 1.25mg at this time. Still on strict droplet precaution for possible COVID 19. Kept dry, clean and comfortable. Call light placed in easy reach. Will continue plan of care.
[2019-09-12] MEDS: Pantoprazole Inj IVP SCH (08:12)
[2019-09-12] MEDS: Morphine Sulfate 4mg/ml Inj (IV USE ONLY) IVP PRN (08:13)
[2019-09-12] MEDS: Heparin 5000 units/ml inj SUBQ SCH ×2 (08:14→20:09)
[2019-09-12] MEDS: Cefepime HCl 2 GM in D5W 55 ML IVPB SCH ×2 (08:15→17:24)
--- NOTE | 2019-09-12 09:41 | Pulmonology Progress Note ---
Assessment/Plan Assessment/Plan respiratory failure; now extubated possible COVID 19; but doubt it lymphopenia sinus tachycardia + tox screen PLAN follow up ABG prn still has leucocytosis IV antibiotics per ID discussed with RN strict isolation await COVID-19 results Subjective Interval Events: No overnight issues Constitutional: Reports: no symptoms HEENT: Repors: no symptoms Respiratory: Reports: no symptoms Cardiovascular: Reports: no symptoms Gastrointestinal/Abdominal: Reports: no symptoms Allergies: Coded Allergies: No Known Allergies (Unverified , 08/21/19) Objective Last 24 Hour Vital Signs Date Time Temp Pulse Resp B/P (MAP) Pulse Ox O2 Delivery O2 Flow Rate FiO2 09/12/19 08:00 97.8 115 16 142/73 (96) 100 09/12/19 08:00 Nasal Cannula 3.0 Nasal Cannula 3.0 09/12/19 08:00 96 09/12/19 07:00 72 24 137/103 (114) 97 09/12/19 06:00 71 26 142/91 (108) 95 09/12/19 06:00 77 26 128/63 (84) 95 09/12/19 05:00 71 26 142/91 (108) 95 09/12/19 04:00 85 09/12/19 04:00 98.0 83 22 140/64 (89) 67 09/12/19 04:00 Nasal Cannula 3.0 Nasal Cannula 3.0 09/12/19 03:00 91 31 120/85 (97) 82 09/12/19 02:00 90 30 116/62 (80) 98 09/12/19 01:00 98 30 125/74 (91) 98 09/12/19 00:00 97.6 90 27 121/79 (93) 99 09/12/19 00:00 Nasal Cannula 3.0 Nasal Cannula 3.0 09/11/19 23:00 84 20 124/65 (84) 99 09/11/19 22:00 89 20 115/85 (95) 98 09/11/19 21:00 89 11 105/78 (87) 98 09/11/19 20:21 97 Nasal Cannula 3.0 32 09/11/19 20:00 98.8 96 21 130/66 (87) 98 09/11/19 20:00 90 09/11/19 20:00 81 17 123/75 (91) 100 09/11/19 20:00 Nasal Cannula 3.0 Nasal Cannula 3.0 09/11/19 19:00 96 21 130/66 (87) 98 09/11/19 18:00 84 19 156/134 (141) 99 09/11/19 17:00 99.1 86 17 142/89 (106) 100 09/11/19 16:00 Nasal Cannula 3.0 Nasal Cannula 3.0 09/11/19 16:00 84 09/11/19 16:00 88 15 123/78 (93) 100 09/11/19 15:00 78 29 128/94 (105) 96 09/11/19 14:00 92 18 126/71 (89) 99 09/11/19 13:00 89 19 137/92 (107) 98 09/11/19 12:00 98.9 93 16 123/73 (90) 100 09/11/19 12:00 102 09/11/19 12:00 Nasal Cannula 3.0 Nasal Cannula 3.0 09/11/19 11:00 95 15 160/99 (119) 96 09/11/19 10:00 103 21 141/118 (126) 80 Intake and Output 09/11/19 09/12/19 19:00 07:00 Intake Total 1730 ml 320 ml Output Total 1700 ml 1160 ml Balance 30 ml -840 ml Intake Oral 1000 ml 320 ml IV Total 730 ml Output Urine Total 1700 ml 1160 ml General Appearance: no acute distress HEENT: normocephalic Respiratory/Chest: chest wall non-tender, lungs clear Cardiovascular: normal peripheral pulses Abdomen: normal bowel sounds Microbiology Date/Time Source Procedure Growth Status 09/11/19 12:00 Urine,Clean Catch Urine Culture - Preliminary NO GROWTH Resulted Laboratory Tests 09/11/19 12:00: Urine Color Pale yellow, Urine Appearance Clear, Urine pH 7, Urine Specific [place] 1.010, Urine Protein 1+H, Urine Glucose (UA) Negative, Urine Ketones 2+H , Urine Blood 4+H, Urine Nitrite Negative, Urine Bilirubin Negative, Urine Urobilinogen Normal, Urine Leukocyte Esterase Negative, Urine RBC 5-10H, Urine WBC 0-2, Urine Squamous Epithelial Cells None, Urine Bacteria Few 09/12/19 04:00: White Blood Count 16.0H, Red Blood Count 5.02, Hemoglobin 13.4L, Hematocrit 41.2L, Mean Corpuscular Volume 82, Mean Corpuscular Hemoglobin 26.6L, Mean Corpuscular Hemoglobin Concent 32.4, Red Cell Distribution Width 12.6, Platelet Count 274, Mean Platelet Volume 7.6, Neutrophils (%) (Auto) 74.2, Lymphocytes (% ) (Auto) 15.4L, Monocytes (%) (Auto) 5.7, Eosinophils (%) (Auto) 3.5H, Basophils (%) (Auto) 1.2, Sodium Level 144, Potassium Level 3.8, Chloride Level 104, Carbon Dioxide Level 36H, Anion Gap 4L, Blood Urea Nitrogen 9, Creatinine 1.0, Estimat Glomerular Filtration Rate > 60, Glucose Level 151H, Calcium Level 9.1 Current Medications Medications (Trade) Dose Ordered Sig/Tamara Route PRN Reason Start Time Stop Time Status Last Admin Dose Admin Cefepime HCl 2 gm/ Dextrose 55 ml @ 110 mls/hr Q8H IVPB 09/12/19 09:00 09/19/19 08:59 09/12/19 08:15 Chlorhexidine Gluconate (Zora-Hex 2%) 1 applic DAILY@2000 TOPIC 09/10/19 20:00 10/10/19 19:59 09/11/19 20:02 Heparin Sodium (Porcine) (Heparin 5000 units/ml) 5,000 units EVERY 12 HOURS SUBQ 09/09/19 09:00 10/24/19 08:59 09/12/19 08:14 Morphine Sulfate (Morphine Sulfate) 4 mg Q4H PRN IVP PAIN 4-10 09/09/19 09:00 09/16/19 08:59 09/12/19 08:13 Ondansetron HCl (Zofran) 4 mg Q6H PRN IVP Nausea & Vomiting 09/09/19 09:00 10/09/19 08:59 Pantoprazole (Protonix) 40 mg DAILY IVP 09/09/19 09:30 10/09/19 09:29 09/12/19 08:12 Vancomycin HCl (Vanco rx to dose) 1 ea DAILY PRN MISC Per rx protocol 09/10/19 20:00 10/10/19 19:59 Vancomycin/Sodium Chloride 275 ml @ 183.333 mls/hr Q8HR IVPB 09/11/19 13:30 09/16/19 13:29 09/12/19 07:14 Samir Gardner MD Sep 12, 2019 09:41
--- NOTE | 2019-09-12 09:50 | NUR ---
NURSE NOTES: Seen by Dr. Hernadez.
--- NOTE | 2019-09-12 10:22 | NUR ---
NURSE NOTES: Assisted bed bath. Kept dry, clean and comfortable.
--- NOTE | 2019-09-12 10:22 | NUR ---
NURSE NOTES: Seen by Dr. Avila.
--- NOTE | 2019-09-12 10:45 | Infectious Diseases Prog Note ---
Assessment/Plan Assessment/Plan antibiotics : vancomycin iv, cefepime A 1. pneumonia 2. respiratory failure resolved 3. sleep apnea 4. leucocytosis improving 5. obesity 6. drug use P 1. continue iv vancomycin, cefepime 2. will follow up cultures, CT chest 3. continue isolation Subjective ROS Limited/Unobtainable: Yes Allergies: Coded Allergies: No Known Allergies (Unverified , 08/21/19) Objective Vital Signs Last 24 Hour Vital Signs Date Time Temp Pulse Resp B/P (MAP) Pulse Ox O2 Delivery O2 Flow Rate FiO2 09/12/19 09:00 96 16 158/84 (108) 95 09/12/19 08:00 97.8 115 16 142/73 (96) 100 09/12/19 08:00 Nasal Cannula 3.0 Nasal Cannula 3.0 09/12/19 08:00 96 09/12/19 07:00 72 24 137/103 (114) 97 09/12/19 06:00 71 26 142/91 (108) 95 09/12/19 06:00 77 26 128/63 (84) 95 09/12/19 05:00 71 26 142/91 (108) 95 09/12/19 04:00 85 09/12/19 04:00 98.0 83 22 140/64 (89) 67 09/12/19 04:00 Nasal Cannula 3.0 Nasal Cannula 3.0 09/12/19 03:00 91 31 120/85 (97) 82 09/12/19 02:00 90 30 116/62 (80) 98 09/12/19 01:00 98 30 125/74 (91) 98 09/12/19 00:00 97.6 90 27 121/79 (93) 99 09/12/19 00:00 Nasal Cannula 3.0 Nasal Cannula 3.0 09/11/19 23:00 84 20 124/65 (84) 99 09/11/19 22:00 89 20 115/85 (95) 98 09/11/19 21:00 89 11 105/78 (87) 98 09/11/19 20:21 97 Nasal Cannula 3.0 32 09/11/19 20:00 98.8 96 21 130/66 (87) 98 09/11/19 20:00 90 09/11/19 20:00 81 17 123/75 (91) 100 09/11/19 20:00 Nasal Cannula 3.0 Nasal Cannula 3.0 09/11/19 19:00 96 21 130/66 (87) 98 09/11/19 18:00 84 19 156/134 (141) 99 09/11/19 17:00 99.1 86 17 142/89 (106) 100 09/11/19 16:00 Nasal Cannula 3.0 Nasal Cannula 3.0 09/11/19 16:00 84 09/11/19 16:00 88 15 123/78 (93) 100 09/11/19 15:00 78 29 128/94 (105) 96 09/11/19 14:00 92 18 126/71 (89) 99 09/11/19 13:00 89 19 137/92 (107) 98 09/11/19 12:00 98.9 93 16 123/73 (90) 100 09/11/19 12:00 102 09/11/19 12:00 Nasal Cannula 3.0 Nasal Cannula 3.0 09/11/19 11:00 95 15 160/99 (119) 96 Height (Feet): 6 Height (Inches): 0.00 Weight (Pounds): 347 Respiratory/Chest: lungs clear Cardiovascular: normal rate, regular rhythm, no gallop/murmur Abdomen: soft, non tender Extremities: no edema Microbiology Date/Time Source Procedure Growth Status 09/11/19 12:00 Urine,Clean Catch Urine Culture - Preliminary NO GROWTH Resulted Laboratory Tests Test 09/11/19 12:00 09/12/19 04:00 Urine Color Pale yellow Urine Appearance Clear Urine pH 7 (4.5-8.0) Urine Specific [place] 1.010 (1.005-1.035) Urine Protein 1+ (NEGATIVE) H Urine Glucose (UA) Negative (NEGATIVE) Urine Ketones 2+ (NEGATIVE) H Urine Blood 4+ (NEGATIVE) H Urine Nitrite Negative (NEGATIVE) Urine Bilirubin Negative (NEGATIVE) Urine Urobilinogen Normal MG/DL (0.0-1.0) Urine Leukocyte Esterase Negative (NEGATIVE) Urine RBC 5-10 /HPF (0 - 0) H Urine WBC 0-2 /HPF (0 - 0) Urine Squamous Epithelial Cells None /LPF (NONE/OCC) Urine Bacteria Few /HPF (NONE) White Blood Count 16.0 K/UL (4.8-10.8) H Red Blood Count 5.02 M/UL (4.70-6.10) Hemoglobin 13.4 G/DL (14.2-18.0) L Hematocrit 41.2 % (42.0-52.0) L Mean Corpuscular Volume 82 FL (80-99) Mean Corpuscular Hemoglobin 26.6 PG (27.0-31.0) L Mean Corpuscular Hemoglobin Concent 32.4 G/DL (32.0-36.0) Red Cell Distribution Width 12.6 % (11.6-14.8) Platelet Count 274 K/UL (150-450) Mean Platelet Volume 7.6 FL (6.5-10.1) Neutrophils (%) (Auto) 74.2 % (45.0-75.0) Lymphocytes (%) (Auto) 15.4 % (20.0-45.0) L Monocytes (%) (Auto) 5.7 % (1.0-10.0) Eosinophils (%) (Auto) 3.5 % (0.0-3.0) H Basophils (%) (Auto) 1.2 % (0.0-2.0) Sodium Level 144 MMOL/L (136-145) Potassium Level 3.8 MMOL/L (3.5-5.1) Chloride Level 104 MMOL/L (98-107) Carbon Dioxide Level 36 MMOL/L (21-32) H Anion Gap 4 mmol/L (5-15) L Blood Urea Nitrogen 9 mg/dL (7-18) Creatinine 1.0 MG/DL (0.55-1.30) Estimat Glomerular Filtration Rate > 60 mL/min (>60) Glucose Level 151 MG/DL (74-106) H Calcium Level 9.1 MG/DL (8.5-10.1) Current Medications Medications (Trade) Dose Ordered Sig/Tamara Route PRN Reason Start Time Stop Time Status Last Admin Dose Admin Cefepime HCl 2 gm/ Dextrose 55 ml @ 110 mls/hr Q8H IVPB 09/12/19 09:00 09/19/19 08:59 09/12/19 08:15 Chlorhexidine Gluconate (Zora-Hex 2%) 1 applic DAILY@2000 TOPIC 09/10/19 20:00 10/10/19 19:59 09/11/19 20:02 Heparin Sodium (Porcine) (Heparin 5000 units/ml) 5,000 units EVERY 12 HOURS SUBQ 09/09/19 09:00 10/24/19 08:59 09/12/19 08:14 Morphine Sulfate (Morphine Sulfate) 4 mg Q4H PRN IVP PAIN 4-10 09/09/19 09:00 09/16/19 08:59 09/12/19 08:13 Ondansetron HCl (Zofran) 4 mg Q6H PRN IVP Nausea & Vomiting 09/09/19 09:00 10/09/19 08:59 Pantoprazole (Protonix) 40 mg DAILY IVP 09/09/19 09:30 10/09/19 09:29 09/12/19 08:12 Vancomycin HCl (Vanco rx to dose) 1 ea DAILY PRN MISC Per rx protocol 09/10/19 20:00 10/10/19 19:59 Vancomycin/Sodium Chloride 275 ml @ 183.333 mls/hr Q8HR IVPB 09/11/19 13:30 09/16/19 13:29 09/12/19 07:14 Dari Avila MD Sep 12, 2019 10:45
--- NOTE | 2019-09-12 11:50 | Nephrology Progress Note ---
Assessment/Plan Plan #JESE- pre-renal - improved with hydration. #hypokalemia #resp failure #weakness #viral syndrome #KRISTIAN #obesity #h/o drug use - monitor off IVF - monitor lytes - antibiotics per ID - montior renal function - follow Ct chest - pending COVID-19 results - pulm eval - monitor leukocytosis - monitor ABG Subjective Subjective remains in ICU breathing stable WBC [address] chest Objective Objective Last 24 Hour Vital Signs Date Time Temp Pulse Resp B/P (MAP) Pulse Ox O2 Delivery O2 Flow Rate FiO2 09/12/19 09:00 96 16 158/84 (108) 95 09/12/19 08:00 97.8 115 16 142/73 (96) 100 09/12/19 08:00 Nasal Cannula 3.0 Nasal Cannula 3.0 09/12/19 08:00 96 09/12/19 07:00 72 24 137/103 (114) 97 09/12/19 06:00 71 26 142/91 (108) 95 09/12/19 06:00 77 26 128/63 (84) 95 09/12/19 05:00 71 26 142/91 (108) 95 09/12/19 04:00 85 09/12/19 04:00 98.0 83 22 140/64 (89) 67 09/12/19 04:00 Nasal Cannula 3.0 Nasal Cannula 3.0 09/12/19 03:00 91 31 120/85 (97) 82 09/12/19 02:00 90 30 116/62 (80) 98 09/12/19 01:00 98 30 125/74 (91) 98 09/12/19 00:00 97.6 90 27 121/79 (93) 99 09/12/19 00:00 Nasal Cannula 3.0 Nasal Cannula 3.0 09/11/19 23:00 84 20 124/65 (84) 99 09/11/19 22:00 89 20 115/85 (95) 98 09/11/19 21:00 89 11 105/78 (87) 98 09/11/19 20:21 97 Nasal Cannula 3.0 32 09/11/19 20:00 98.8 96 21 130/66 (87) 98 09/11/19 20:00 90 09/11/19 20:00 81 17 123/75 (91) 100 09/11/19 20:00 Nasal Cannula 3.0 Nasal Cannula 3.0 09/11/19 19:00 96 21 130/66 (87) 98 09/11/19 18:00 84 19 156/134 (141) 99 09/11/19 17:00 99.1 86 17 142/89 (106) 100 09/11/19 16:00 Nasal Cannula 3.0 Nasal Cannula 3.0 09/11/19 16:00 84 09/11/19 16:00 88 15 123/78 (93) 100 09/11/19 15:00 78 29 128/94 (105) 96 09/11/19 14:00 92 18 126/71 (89) 99 09/11/19 13:00 89 19 137/92 (107) 98 09/11/19 12:00 98.9 93 16 123/73 (90) 100 09/11/19 12:00 102 09/11/19 12:00 Nasal Cannula 3.0 Nasal Cannula 3.0 Intake and Output 09/11/19 09/12/19 19:00 07:00 Intake Total 1730 ml 320 ml Output Total 1700 ml 1160 ml Balance 30 ml -840 ml Intake Oral 1000 ml 320 ml IV Total 730 ml Output Urine Total 1700 ml 1160 ml Laboratory Tests 09/11/19 12:00: Urine Color Pale yellow, Urine Appearance Clear, Urine pH 7, Urine Specific [place] 1.010, Urine Protein 1+H, Urine Glucose (UA) Negative, Urine Ketones 2+H , Urine Blood 4+H, Urine Nitrite Negative, Urine Bilirubin Negative, Urine Urobilinogen Normal, Urine Leukocyte Esterase Negative, Urine RBC 5-10H, Urine WBC 0-2, Urine Squamous Epithelial Cells None, Urine Bacteria Few 09/12/19 04:00: White Blood Count 16.0H, Red Blood Count 5.02, Hemoglobin 13.4L, Hematocrit 41.2L, Mean Corpuscular Volume 82, Mean Corpuscular Hemoglobin 26.6L, Mean Corpuscular Hemoglobin Concent 32.4, Red Cell Distribution Width 12.6, Platelet Count 274, Mean Platelet Volume 7.6, Neutrophils (%) (Auto) 74.2, Lymphocytes (% ) (Auto) 15.4L, Monocytes (%) (Auto) 5.7, Eosinophils (%) (Auto) 3.5H, Basophils (%) (Auto) 1.2, Sodium Level 144, Potassium Level 3.8, Chloride Level 104, Carbon Dioxide Level 36H, Anion Gap 4L, Blood Urea Nitrogen 9, Creatinine 1.0, Estimat Glomerular Filtration Rate > 60, Glucose Level 151H, Calcium Level 9.1 Height (Feet): 6 Height (Inches): 0.00 Weight (Pounds): 347 Shania Kendrick M.D. Sep 12, 2019 11:50
--- NOTE | 2019-09-12 12:47 | NUR ---
NURSE NOTES: Collected blood for vanco trough and sent to the lab.
--- NOTE | 2019-09-12 13:07 | NUR ---
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 98.0 HR 91 RR 31 B/P 140/64 3L NC O2 SAT @ 98% WBC 16.0 CO2 36 IS: CEFEPIME IV VANCO IV HEPARIN SUBC ICU STATUS
--- NOTE | 2019-09-12 13:33 | NUR ---
NURSE NOTES: Talked with Brayan/Pharmacist regarding vanco trough. She said she will dosing. Will continue plan of care.
[2019-09-12] MEDS ORDERED: Sterile Water Irrig 1000ml IRRIG ONE (14:24)
[2019-09-12] MEDS ORDERED: NS 275ml ONE (14:24)
--- NOTE | 2019-09-12 14:33 | NUR ---
NURSE NOTES: Provided oral care
--- NOTE | 2019-09-12 14:48 | General Progress Note ---
Assessment/Plan Status: stable, not improved, unchanged Assessment/Plan: Mr. Fournier is a 24 year old M w/ hx of asthma, morbid obesity, KRISTIAN, presenting with weakness, respiratory failure, and pneumonia #Acute hypoxic, hypercapneic respiratory failure, requiring intubation. #Severe sepsis #Pneumonia #Possible COVID-19 #ARDS -Extubated 09/09 -Cont Vanco -Continue antibiotics per ID -s/p steroid x1. -f/u Covid testing. Isolation in the meantime. #Morbid obesity #Presumed KRISTIAN #Presumed obesity hypoventilation syndrome -CPAP outpatient. -Pulm following -Weight loss counseling. #Substance abuse Amphetamine, cocaine, THC positive on urine. I spent 40 minutes on this patient's case, and 20 mins was dedicated to coordination of care with RN, case assembler and consulting MDs Subjective Date patient seen: Sep 12, 2019 Time patient seen: 08:11 ROS Limited/Unobtainable: No Constitutional: Denies: chills, fever Cardiovascular: Denies: chest pain Respiratory: Denies: cough Gastrointestinal/Abdominal: Denies: abdomen distended, abdominal pain Allergies: Coded Allergies: No Known Allergies (Unverified , 08/21/19) Subjective Covering for Dr. Chen Follow up for acute hypoxic resp failure, CAP, possible COVID-19, morbid obesity Patient extubated, feeling well. Denies dyspnea, chest pain COVID 19 testing pending Objective Last 24 Hour Vital Signs Date Time Temp Pulse Resp B/P (MAP) Pulse Ox O2 Delivery O2 Flow Rate FiO2 09/12/19 14:00 86 16 152/81 (104) 97 09/12/19 13:00 88 18 126/77 (93) 96 09/12/19 12:00 Nasal Cannula 3.0 Nasal Cannula 3.0 09/12/19 12:00 94 19 145/96 (112) 96 09/12/19 12:00 95 09/12/19 11:00 82 23 142/96 (111) 93 09/12/19 10:00 86 19 123/71 (88) 93 09/12/19 09:00 96 16 158/84 (108) 95 09/12/19 08:25 96 Nasal Cannula 3.0 32 09/12/19 08:00 97.8 115 16 142/73 (96) 100 09/12/19 08:00 Nasal Cannula 3.0 Nasal Cannula 3.0 09/12/19 08:00 96 09/12/19 07:00 72 24 137/103 (114) 97 09/12/19 06:00 71 26 142/91 (108) 95 09/12/19 06:00 77 26 128/63 (84) 95 09/12/19 05:00 71 26 142/91 (108) 95 09/12/19 04:00 85 09/12/19 04:00 98.0 83 22 140/64 (89) 67 09/12/19 04:00 Nasal Cannula 3.0 Nasal Cannula 3.0 09/12/19 03:00 91 31 120/85 (97) 82 09/12/19 02:00 90 30 116/62 (80) 98 09/12/19 01:00 98 30 125/74 (91) 98 09/12/19 00:00 97.6 90 27 121/79 (93) 99 09/12/19 00:00 Nasal Cannula 3.0 Nasal Cannula 3.0 09/11/19 23:00 84 20 124/65 (84) 99 09/11/19 22:00 89 20 115/85 (95) 98 09/11/19 21:00 89 11 105/78 (87) 98 09/11/19 20:21 97 Nasal Cannula 3.0 32 09/11/19 20:00 98.8 96 21 130/66 (87) 98 09/11/19 20:00 90 09/11/19 20:00 81 17 123/75 (91) 100 09/11/19 20:00 Nasal Cannula 3.0 Nasal Cannula 3.0 09/11/19 19:00 96 21 130/66 (87) 98 09/11/19 18:00 84 19 156/134 (141) 99 09/11/19 17:00 99.1 86 17 142/89 (106) 100 09/11/19 16:00 Nasal Cannula 3.0 Nasal Cannula 3.0 09/11/19 16:00 84 09/11/19 16:00 88 15 123/78 (93) 100 09/11/19 15:00 78 29 128/94 (105) 96 Intake and Output 09/11/19 09/12/19 19:00 07:00 Intake Total 1730 ml 320 ml Output Total 1700 ml 1160 ml Balance 30 ml -840 ml Intake Oral 1000 ml 320 ml IV Total 730 ml Output Urine Total 1700 ml 1160 ml Laboratory Tests 09/12/19 04:00: White Blood Count 16.0H, Red Blood Count 5.02, Hemoglobin 13.4L, Hematocrit 41.2L, Mean Corpuscular Volume 82, Mean Corpuscular Hemoglobin 26.6L, Mean Corpuscular Hemoglobin Concent 32.4, Red Cell Distribution Width 12.6, Platelet Count 274, Mean Platelet Volume 7.6, Neutrophils (%) (Auto) 74.2, Lymphocytes (% ) (Auto) 15.4L, Monocytes (%) (Auto) 5.7, Eosinophils (%) (Auto) 3.5H, Basophils (%) (Auto) 1.2, Sodium Level 144, Potassium Level 3.8, Chloride Level 104, Carbon Dioxide Level 36H, Anion Gap 4L, Blood Urea Nitrogen 9, Creatinine 1.0, Estimat Glomerular Filtration Rate > 60, Glucose Level 151H, Calcium Level 9.1 09/12/19 12:30: Vancomycin Level Trough 12.8H Height (Feet): 6 Height (Inches): 0.00 Weight (Pounds): 347 General Appearance: no apparent distress, alert Respiratory/Chest: no respiratory distress Spencer Hall MD Sep 12, 2019 14:47
[2019-09-12] MEDS: Vancomycin 1.5gm/NS Premix q24h IVPB SCH ×2 (15:15→21:59)
--- NOTE | 2019-09-12 16:02 | NUR ---
NURSE NOTES: Provided oral care. No distress/SOB noted. Still on O2 3L/min via NC.
--- NOTE | 2019-09-12 18:20 | NUR ---
NURSE NOTES: Noted with good appetite, 100% of intake. Empty urinal. Yello color 300 ml urine noted. Kept dry, clean and comfortable.
--- NOTE | 2019-09-12 19:07 | NUR ---
HAND-OFF: Report given to SERENA Dawkins. Endorsed plan of care.
--- NOTE | 2019-09-12 19:30 | NUR ---
NURSE NOTES: Received report from SERENA Rose. patient awake alert and oriented. respirations even and unlabored on 3L NC. VSS, temp 99.2F patient offered ice chips and patient removed blanket. patient on droplet precaution for possible COVID 19. skin warm dry intact. right PIV gauge 18 and righ IJ TLC clean dry intact. abdomen soft, round, nontender with hypoactive bowel sounds. will continue to monitor. bed locked lowest position call light within reach.
[2019-09-12] MEDS: Dyna-Hex 2% Top Sol 2oz TOPIC SCH (20:08)
[2019-09-12] MEDS ORDERED: Morphine Sulfate 2mg/ml Inj(IV/IM USE ONLY) IVP PRN (21:00)
--- NOTE | 2019-09-12 22:00 | NUR ---
NURSE NOTES: Patient awake alert and oriented x4. VSS and afebrile. no acute distress noted. patient denied pain. Patient repositioned self and was provided a sandwhich and juice. Patient passed gas, no BM at this time. will continue to monitor.
[2019-09-13] VITALS (14 sets, daily range): BP systolic 118–163; BP diastolic 54–117
--- NOTE | 2019-09-13 | NUR ---
NURSE NOTES: Patient awake alert oriented. VSS and afebrile. no acute distress noted. patient repositioned self. will continue to monitor. bed locked lowest position call light within reach.
[2019-09-13] MEDS: Cefepime HCl 2 GM in D5W 55 ML IVPB SCH ×2 (01:31→08:53)
--- NOTE | 2019-09-13 02:00 | NUR ---
NURSE NOTES: Patient awake alert oriented. VSS and afebrile in no acute distress. patient denies pain. right IJ TLC clean dry intact. Patient repositioned self. will continue to monitor. bed locked lowest position call light within reach.
--- NOTE | 2019-09-13 04:00 | NUR ---
NURSE NOTES: Patient asleep arousable and oriented. Respirations even and unlabored on 3L NC with oxygen saturation at 99% and productive cough. VSS and afebrile, patient denies pain. skin warm dry intact. Right IJ TLC clean dry patent. patient given bed bath. bed locked lowest position call light within reach.
[2019-09-13 05:13] LABS: BASOPHILS % (AUTO) 1.1 % (0.0-2.0); EOSINOPHILS % (AUTO) 3.7 % (0.0-3.0); HEMATOCRIT 41.7 % (42.0-52.0); HEMOGLOBIN 13.5 G/DL (14.2-18.0); LYMPHOCYTES % (AUTO) 15.8 % (20.0-45.0); MEAN CORPUSCULAR VOLUME 82 FL (80-99); MONOCYTES % (AUTO) 5.2 % (1.0-10.0); NEUTROPHILS % (AUTO) 74.3 % (45.0-75.0); PLATELET COUNT 283 K/UL (150-450); RED BLOOD COUNT 5.09 M/UL (4.70-6.10); RED CELL DISTRIBUTION WIDTH 12.7 % (11.6-14.8); WHITE BLOOD COUNT 15.7 K/UL (4.8-10.8)
--- NOTE | 2019-09-13 06:00 | NUR ---
NURSE NOTES: Patient asleep arousable and oriented. respirations even and unlabored on 3L NC with oxygen saturation at 99%, no acute distress noted. patient denies pain. right IJ TLC clean dry patent running vancomycin. skin warm dry intact. abdomen round nontender with hypoactive bowel sounds, no BM at this time. will continue to monitor. bed locked lowest position call light within reach.
[2019-09-13] MEDS: Vancomycin 1.5gm/NS Premix q24h IVPB SCH (06:01)
[2019-09-13 06:05] LABS: ALANINE AMINOTRANSFERASE 40 U/L (12-78); ALBUMIN 2.9 G/DL (3.4-5.0); ALBUMIN/GLOBULIN RATIO 0.7 (1.0-2.7); ALKALINE PHOSPHATASE 93 U/L (46-116); ANION GAP 4 mmol/L (5-15); ASPARTATE AMINO TRANSFERASE 24 U/L (15-37); BILIRUBIN,TOTAL 0.2 MG/DL (0.2-1.0); BLOOD UREA NITROGEN 11 mg/dL (7-18); CALCIUM 9.6 MG/DL (8.5-10.1); CARBON DIOXIDE 37 MMOL/L (21-32); CHLORIDE 103 MMOL/L (98-107); CREATININE 0.9 MG/DL (0.55-1.30); POTASSIUM 3.8 MMOL/L (3.5-5.1); SODIUM 144 MMOL/L (136-145)
--- NOTE | 2019-09-13 07:09 | NUR ---
HAND-OFF: Report given to SERENA Larsen.
--- NOTE | 2019-09-13 07:10 | NUR ---
NURSE NOTES: Received patient from Mariza LYONS. Patient is asleep, easily awoken by name, alert and oriented x4. Patient is Sinus Rhythm on the heart monitor, HR 96. Receiving oxygen via nasal cannula at 3L/min, O2 saturation at 98%, no signs of respiratory distress. IV site is Right AC 20g patent and intact, Right IJ TLC is intact and asymptomatic. Bed is locked, placed in lowest position, side rails up x2, bed alarm on, call light within reach, breakfast tray at the bedside. Will continue to monitor.
[2019-09-13] MEDS: Pantoprazole Inj IVP SCH (08:52)
[2019-09-13] MEDS: Heparin 5000 units/ml inj SUBQ SCH (08:53)
--- NOTE | 2019-09-13 09:36 | NUR ---
NURSE NOTES: Patient complained of Nausea and vomited approximately 50ml of fluid. Prescribed PRN Zofran 4mg was given via IV. Patient stated he was feeling better after administration of medication, no complaint of nausea. Will continue to monitor.
--- NOTE | 2019-09-13 10:23 | Pulmonology Progress Note ---
Assessment/Plan Assessment/Plan respiratory failure; now extubated possible COVID 19; but doubt it lymphopenia sinus tachycardia + tox screen PLAN follow up ABG prn still has leucocytosis IV antibiotics per ID discussed with RN strict isolation await COVID-19 results Subjective Interval Events: None new Constitutional: Reports: no symptoms HEENT: Repors: no symptoms Respiratory: Reports: no symptoms Cardiovascular: Reports: no symptoms Allergies: Coded Allergies: No Known Allergies (Unverified , 08/21/19) Objective Last 24 Hour Vital Signs Date Time Temp Pulse Resp B/P (MAP) Pulse Ox O2 Delivery O2 Flow Rate FiO2 09/13/19 10:00 86 12 118/78 (91) 87 09/13/19 09:00 74 23 128/62 (84) 95 09/13/19 08:00 97.4 78 21 137/63 (87) 97 09/13/19 08:00 Nasal Cannula 3.0 Nasal Cannula 3.0 09/13/19 07:55 97 Nasal Cannula 3.0 32 09/13/19 07:30 77 09/13/19 07:00 81 14 127/72 (90) 98 09/13/19 06:00 78 163/111 (128) 97 09/13/19 05:00 102 17 143/117 (126) 96 09/13/19 04:00 Nasal Cannula 3.0 Nasal Cannula 3.0 09/13/19 04:00 98.7 88 17 151/86 (107) 99 09/13/19 04:00 84 09/13/19 03:00 73 25 150/81 (104) 98 09/13/19 02:00 83 19 151/77 (101) 94 09/13/19 01:00 88 18 140/78 (98) 99 09/13/19 00:00 Nasal Cannula 3.0 Nasal Cannula 3.0 09/13/19 00:00 92 09/13/19 00:00 99.0 91 25 138/91 (107) 97 09/12/19 23:00 85 18 128/90 (103) 99 09/12/19 22:00 95 17 137/111 (120) 98 09/12/19 21:00 89 7 122/71 (88) 97 09/12/19 20:00 84 09/12/19 20:00 99.2 86 18 145/88 (107) 97 09/12/19 20:00 Nasal Cannula 3.0 Nasal Cannula 3.0 09/12/19 19:08 95 Nasal Cannula 3.0 32 09/12/19 19:00 88 14 126/71 (89) 97 09/12/19 18:00 98.9 89 21 104/79 (87) 99 09/12/19 17:00 83 17 154/84 (107) 98 09/12/19 16:00 86 17 137/73 (94) 98 09/12/19 16:00 Nasal Cannula 3.0 Nasal Cannula 3.0 09/12/19 16:00 86 09/12/19 15:00 90 18 133/73 (93) 98 09/12/19 14:00 86 16 152/81 (104) 97 09/12/19 13:00 88 18 126/77 (93) 96 09/12/19 12:00 Nasal Cannula 3.0 Nasal Cannula 3.0 09/12/19 12:00 94 19 145/96 (112) 96 09/12/19 12:00 95 09/12/19 11:00 82 23 142/96 (111) 93 Intake and Output 09/12/19 09/13/19 19:00 07:00 Intake Total 1560.000 ml 947.5 ml Output Total 450 ml 1100 ml Balance 1110.000 ml -152.5 ml Intake Oral 900 ml 480 ml IV Total 660.000 ml 467.5 ml Output Urine Total 450 ml 1100 ml General Appearance: no acute distress HEENT: normocephalic Respiratory/Chest: chest wall non-tender Cardiovascular: normal peripheral pulses Abdomen: normal bowel sounds Microbiology Date/Time Source Procedure Growth Status 09/10/19 14:00 Sputum Gram Stain - Final Complete 09/10/19 14:00 Sputum Sputum Culture - Final NORMAL UPPER RESPIRATORY BARB PRESENT Complete 09/11/19 12:00 Urine,Clean Catch Urine Culture - Preliminary Resulted Laboratory Tests 09/12/19 12:30: Vancomycin Level Trough 12.8H 09/13/19 04:00: White Blood Count 15.7H, Red Blood Count 5.09, Hemoglobin 13.5L, Hematocrit 41.7L, Mean Corpuscular Volume 82, Mean Corpuscular Hemoglobin 26.6L, Mean Corpuscular Hemoglobin Concent 32.5, Red Cell Distribution Width 12.7, Platelet Count 283, Mean Platelet Volume 7.5, Neutrophils (%) (Auto) 74.3, Lymphocytes (% ) (Auto) 15.8L, Monocytes (%) (Auto) 5.2, Eosinophils (%) (Auto) 3.7H, Basophils (%) (Auto) 1.1, Sodium Level 144, Potassium Level 3.8, Chloride Level 103, Carbon Dioxide Level 37H, Anion Gap 4L, Blood Urea Nitrogen 11, Creatinine 0.9, Estimat Glomerular Filtration Rate > 60, Glucose Level 109H, Calcium Level 9.6, Total Bilirubin 0.2, Aspartate Amino Transf (AST/SGOT) 24, Alanine Aminotransferase (ALT/SGPT) 40, Alkaline Phosphatase 93, Total Protein 7.3, Albumin 2.9L, Globulin 4.4, Albumin/Globulin Ratio 0.7L Current Medications Medications (Trade) Dose Ordered Sig/Tamara Route PRN Reason Start Time Stop Time Status Last Admin Dose Admin Acetaminophen (Tylenol) 650 mg Q6H PRN ORAL Mild Pain/Temp > 100.5 09/13/19 09:51 10/13/19 09:50 Cefepime HCl 2 gm/ Dextrose 55 ml @ 110 mls/hr Q8H IVPB 09/12/19 09:00 09/19/19 08:59 09/13/19 08:53 Chlorhexidine Gluconate (Zora-Hex 2%) 1 applic DAILY@2000 TOPIC 09/10/19 20:00 10/10/19 19:59 09/12/19 20:08 Heparin Sodium (Porcine) (Heparin 5000 units/ml) 5,000 units EVERY 12 HOURS SUBQ 09/09/19 09:00 10/24/19 08:59 09/13/19 08:53 Morphine Sulfate (Morphine Sulfate) 2 mg Q4H PRN IVP Breakthrough pain 09/12/19 21:00 09/19/19 20:59 09/13/19 06:35 Morphine Sulfate (Morphine Sulfate) 4 mg Q4H PRN IVP PAIN 4-10 09/09/19 09:00 09/16/19 08:59 09/12/19 08:13 Ondansetron HCl (Zofran) 4 mg Q6H PRN IVP Nausea & Vomiting 09/09/19 09:00 10/09/19 08:59 09/13/19 09:19 Pantoprazole (Protonix) 40 mg DAILY IVP 09/09/19 09:30 10/09/19 09:29 09/13/19 08:52 Vancomycin HCl (Vanco rx to dose) 1 ea DAILY PRN MISC Per rx protocol 09/10/19 20:00 10/10/19 19:59 Vancomycin/Sodium Chloride 275 ml @ 137.5 mls/ hr Q8H IVPB 09/12/19 15:00 09/17/19 14:59 09/13/19 06:01 Samir Gardner MD Sep 13, 2019 10:23
--- NOTE | 2019-09-13 10:54 | General Progress Note ---
Assessment/Plan Status: stable, not improved, unchanged Assessment/Plan: Mr. Fournier is a 24 year old M w/ hx of asthma, morbid obesity, KRISTIAN, presenting with weakness, respiratory failure, and pneumonia #Acute hypoxic, hypercapneic respiratory failure, requiring intubation. #Severe sepsis #Pneumonia #Possible COVID-19 #ARDS -Extubated 09/09 -Continue antibiotics per ID -f/u Covid testing. Isolation in the meantime. #Morbid obesity #Presumed KRISTIAN #Presumed obesity hypoventilation syndrome -CPAP outpatient. -Pulm following -Weight loss counseling. #Substance abuse Amphetamine, cocaine, THC positive on urine. I spent 40 minutes on this patient's case, and 20 mins was dedicated to coordination of care with RN, caser shoe parts and consulting MDs Subjective Date patient seen: Sep 13, 2019 Time patient seen: 07:15 ROS Limited/Unobtainable: No Constitutional: Denies: chills, fever Cardiovascular: Denies: chest pain Respiratory: Denies: cough, SOB with excertion Gastrointestinal/Abdominal: Denies: abdomen distended Allergies: Coded Allergies: No Known Allergies (Unverified , 08/21/19) Subjective Covering for Dr. Chen Follow up for acute hypoxic resp failure, CAP, possible COVID-19, morbid obesity Patient extubated, feeling well. Denies dyspnea, chest pain COVID 19 testing pending Objective Last 24 Hour Vital Signs Date Time Temp Pulse Resp B/P (MAP) Pulse Ox O2 Delivery O2 Flow Rate FiO2 09/13/19 10:00 86 12 118/78 (91) 87 09/13/19 09:00 74 23 128/62 (84) 95 09/13/19 08:00 97.4 78 21 137/63 (87) 97 09/13/19 08:00 Nasal Cannula 3.0 Nasal Cannula 3.0 09/13/19 07:55 97 Nasal Cannula 3.0 32 09/13/19 07:30 77 09/13/19 07:00 81 14 127/72 (90) 98 09/13/19 06:00 78 163/111 (128) 97 09/13/19 05:00 102 17 143/117 (126) 96 09/13/19 04:00 Nasal Cannula 3.0 Nasal Cannula 3.0 09/13/19 04:00 98.7 88 17 151/86 (107) 99 09/13/19 04:00 84 09/13/19 03:00 73 25 150/81 (104) 98 09/13/19 02:00 83 19 151/77 (101) 94 09/13/19 01:00 88 18 140/78 (98) 99 09/13/19 00:00 Nasal Cannula 3.0 Nasal Cannula 3.0 09/13/19 00:00 92 09/13/19 00:00 99.0 91 25 138/91 (107) 97 09/12/19 23:00 85 18 128/90 (103) 99 09/12/19 22:00 95 17 137/111 (120) 98 09/12/19 21:00 89 7 122/71 (88) 97 09/12/19 20:00 84 09/12/19 20:00 99.2 86 18 145/88 (107) 97 09/12/19 20:00 Nasal Cannula 3.0 Nasal Cannula 3.0 09/12/19 19:08 95 Nasal Cannula 3.0 32 09/12/19 19:00 88 14 126/71 (89) 97 09/12/19 18:00 98.9 89 21 104/79 (87) 99 09/12/19 17:00 83 17 154/84 (107) 98 09/12/19 16:00 86 17 137/73 (94) 98 09/12/19 16:00 Nasal Cannula 3.0 Nasal Cannula 3.0 09/12/19 16:00 86 09/12/19 15:00 90 18 133/73 (93) 98 09/12/19 14:00 86 16 152/81 (104) 97 09/12/19 13:00 88 18 126/77 (93) 96 09/12/19 12:00 Nasal Cannula 3.0 Nasal Cannula 3.0 09/12/19 12:00 94 19 145/96 (112) 96 09/12/19 12:00 95 09/12/19 11:00 82 23 142/96 (111) 93 Intake and Output 09/12/19 09/13/19 19:00 07:00 Intake Total 1560.000 ml 947.5 ml Output Total 450 ml 1100 ml Balance 1110.000 ml -152.5 ml Intake Oral 900 ml 480 ml IV Total 660.000 ml 467.5 ml Output Urine Total 450 ml 1100 ml Laboratory Tests 09/12/19 12:30: Vancomycin Level Trough 12.8H 09/13/19 04:00: White Blood Count 15.7H, Red Blood Count 5.09, Hemoglobin 13.5L, Hematocrit 41.7L, Mean Corpuscular Volume 82, Mean Corpuscular Hemoglobin 26.6L, Mean Corpuscular Hemoglobin Concent 32.5, Red Cell Distribution Width 12.7, Platelet Count 283, Mean Platelet Volume 7.5, Neutrophils (%) (Auto) 74.3, Lymphocytes (% ) (Auto) 15.8L, Monocytes (%) (Auto) 5.2, Eosinophils (%) (Auto) 3.7H, Basophils (%) (Auto) 1.1, Sodium Level 144, Potassium Level 3.8, Chloride Level 103, Carbon Dioxide Level 37H, Anion Gap 4L, Blood Urea Nitrogen 11, Creatinine 0.9, Estimat Glomerular Filtration Rate > 60, Glucose Level 109H, Calcium Level 9.6, Total Bilirubin 0.2, Aspartate Amino Transf (AST/SGOT) 24, Alanine Aminotransferase (ALT/SGPT) 40, Alkaline Phosphatase 93, Total Protein 7.3, Albumin 2.9L, Globulin 4.4, Albumin/Globulin Ratio 0.7L Height (Feet): 6 Height (Inches): 0.00 Weight (Pounds): 350 General Appearance: alert Neck: normal alignment, supple Cardiovascular: normal rate, regular rhythm Respiratory/Chest: lungs clear, normal breath sounds, no respiratory distress Abdomen: non tender, soft Spencer Hall MD Sep 13, 2019 10:54
--- NOTE | 2019-09-13 11:41 | Nephrology Progress Note ---
Assessment/Plan Plan #JESE- pre-renal - improved with hydration. #hypokalemia #resp failure #weakness #viral syndrome #KRISTIAN #obesity #h/o drug use - monitor off IVF - monitor lytes - antibiotics per ID - montior renal function - follow Ct chest - pending COVID-19 results - pulm eval - monitor leukocytosis - monitor ABG Subjective Subjective remains in ICU breathing stable WBC [address] chest Objective Objective Last 24 Hour Vital Signs Date Time Temp Pulse Resp B/P (MAP) Pulse Ox O2 Delivery O2 Flow Rate FiO2 09/13/19 11:19 87 09/13/19 11:00 90 21 134/81 (98) 98 09/13/19 10:00 86 12 118/78 (91) 87 09/13/19 09:00 74 23 128/62 (84) 95 09/13/19 08:00 97.4 78 21 137/63 (87) 97 09/13/19 08:00 Nasal Cannula 3.0 Nasal Cannula 3.0 09/13/19 07:55 97 Nasal Cannula 3.0 32 09/13/19 07:30 77 09/13/19 07:00 81 14 127/72 (90) 98 09/13/19 06:00 78 163/111 (128) 97 09/13/19 05:00 102 17 143/117 (126) 96 09/13/19 04:00 Nasal Cannula 3.0 Nasal Cannula 3.0 09/13/19 04:00 98.7 88 17 151/86 (107) 99 09/13/19 04:00 84 09/13/19 03:00 73 25 150/81 (104) 98 09/13/19 02:00 83 19 151/77 (101) 94 09/13/19 01:00 88 18 140/78 (98) 99 09/13/19 00:00 Nasal Cannula 3.0 Nasal Cannula 3.0 09/13/19 00:00 92 09/13/19 00:00 99.0 91 25 138/91 (107) 97 09/12/19 23:00 85 18 128/90 (103) 99 09/12/19 22:00 95 17 137/111 (120) 98 09/12/19 21:00 89 7 122/71 (88) 97 09/12/19 20:00 84 09/12/19 20:00 99.2 86 18 145/88 (107) 97 09/12/19 20:00 Nasal Cannula 3.0 Nasal Cannula 3.0 09/12/19 19:08 95 Nasal Cannula 3.0 32 09/12/19 19:00 88 14 126/71 (89) 97 09/12/19 18:00 98.9 89 21 104/79 (87) 99 09/12/19 17:00 83 17 154/84 (107) 98 09/12/19 16:00 86 17 137/73 (94) 98 09/12/19 16:00 Nasal Cannula 3.0 Nasal Cannula 3.0 09/12/19 16:00 86 09/12/19 15:00 90 18 133/73 (93) 98 09/12/19 14:00 86 16 152/81 (104) 97 09/12/19 13:00 88 18 126/77 (93) 96 09/12/19 12:00 Nasal Cannula 3.0 Nasal Cannula 3.0 09/12/19 12:00 94 19 145/96 (112) 96 09/12/19 12:00 95 Intake and Output 09/12/19 09/13/19 19:00 07:00 Intake Total 1560.000 ml 947.5 ml Output Total 450 ml 1100 ml Balance 1110.000 ml -152.5 ml Intake Oral 900 ml 480 ml IV Total 660.000 ml 467.5 ml Output Urine Total 450 ml 1100 ml Laboratory Tests 09/12/19 12:30: Vancomycin Level Trough 12.8H 09/13/19 04:00: White Blood Count 15.7H, Red Blood Count 5.09, Hemoglobin 13.5L, Hematocrit 41.7L, Mean Corpuscular Volume 82, Mean Corpuscular Hemoglobin 26.6L, Mean Corpuscular Hemoglobin Concent 32.5, Red Cell Distribution Width 12.7, Platelet Count 283, Mean Platelet Volume 7.5, Neutrophils (%) (Auto) 74.3, Lymphocytes (% ) (Auto) 15.8L, Monocytes (%) (Auto) 5.2, Eosinophils (%) (Auto) 3.7H, Basophils (%) (Auto) 1.1, Sodium Level 144, Potassium Level 3.8, Chloride Level 103, Carbon Dioxide Level 37H, Anion Gap 4L, Blood Urea Nitrogen 11, Creatinine 0.9, Estimat Glomerular Filtration Rate > 60, Glucose Level 109H, Calcium Level 9.6, Total Bilirubin 0.2, Aspartate Amino Transf (AST/SGOT) 24, Alanine Aminotransferase (ALT/SGPT) 40, Alkaline Phosphatase 93, Total Protein 7.3, Albumin 2.9L, Globulin 4.4, Albumin/Globulin Ratio 0.7L Height (Feet): 6 Height (Inches): 0.00 Weight (Pounds): 350 Shania Kendrick M.D. Sep 13, 2019 11:41
--- NOTE | 2019-09-13 11:57 | NUR ---
NURSE NOTES: Patient is resting in bed, denies any pain. No signs of respiratory distress, no signs of acute distress. Will continue to monitor.
--- NOTE | 2019-09-13 12:02 | Infectious Diseases Prog Note ---
Assessment/Plan Assessment/Plan A 1. pneumonia 2. respiratory failure resolved 3. sleep apnea 4. leucocytosis improving 5. obesity 6. drug use 7. Positive blood culture, likely contamination P 1. Discontinue iv vancomycin,continue cefepime 2. will follow up cultures, CT chest, Covid-19 3. continue isolation Subjective ROS Limited/Unobtainable: No Constitutional: Reports: no symptoms Respiratory: Reports: other - SOB at night Gastrointestinal/Abdominal: Reports: no symptoms Genitourinary: Reports: no symptoms Allergies: Coded Allergies: No Known Allergies (Unverified , 08/21/19) Objective Vital Signs Last 24 Hour Vital Signs Date Time Temp Pulse Resp B/P (MAP) Pulse Ox O2 Delivery O2 Flow Rate FiO2 09/13/19 11:19 87 09/13/19 11:00 90 21 134/81 (98) 98 09/13/19 10:00 86 12 118/78 (91) 87 09/13/19 09:00 74 23 128/62 (84) 95 09/13/19 08:00 97.4 78 21 137/63 (87) 97 09/13/19 08:00 Nasal Cannula 3.0 Nasal Cannula 3.0 09/13/19 07:55 97 Nasal Cannula 3.0 32 09/13/19 07:30 77 09/13/19 07:00 81 14 127/72 (90) 98 09/13/19 06:00 78 163/111 (128) 97 09/13/19 05:00 102 17 143/117 (126) 96 09/13/19 04:00 Nasal Cannula 3.0 Nasal Cannula 3.0 09/13/19 04:00 98.7 88 17 151/86 (107) 99 09/13/19 04:00 84 09/13/19 03:00 73 25 150/81 (104) 98 09/13/19 02:00 83 19 151/77 (101) 94 09/13/19 01:00 88 18 140/78 (98) 99 09/13/19 00:00 Nasal Cannula 3.0 Nasal Cannula 3.0 09/13/19 00:00 92 09/13/19 00:00 99.0 91 25 138/91 (107) 97 09/12/19 23:00 85 18 128/90 (103) 99 09/12/19 22:00 95 17 137/111 (120) 98 09/12/19 21:00 89 7 122/71 (88) 97 09/12/19 20:00 84 09/12/19 20:00 99.2 86 18 145/88 (107) 97 09/12/19 20:00 Nasal Cannula 3.0 Nasal Cannula 3.0 09/12/19 19:08 95 Nasal Cannula 3.0 32 09/12/19 19:00 88 14 126/71 (89) 97 09/12/19 18:00 98.9 89 21 104/79 (87) 99 09/12/19 17:00 83 17 154/84 (107) 98 09/12/19 16:00 86 17 137/73 (94) 98 09/12/19 16:00 Nasal Cannula 3.0 Nasal Cannula 3.0 09/12/19 16:00 86 09/12/19 15:00 90 18 133/73 (93) 98 09/12/19 14:00 86 16 152/81 (104) 97 09/12/19 13:00 88 18 126/77 (93) 96 09/12/19 12:00 Nasal Cannula 3.0 Nasal Cannula 3.0 09/12/19 12:00 94 19 145/96 (112) 96 09/12/19 12:00 95 Height (Feet): 6 Height (Inches): 0.00 Weight (Pounds): 350 General Appearance: no acute distress, other - obese Respiratory/Chest: lungs clear, other - Oxygen by nasal cannula Abdomen: soft, non tender Extremities: no edema Neurologic/Psychiatric: alert, oriented x 3, responsive Microbiology Date/Time Source Procedure Growth Status 09/10/19 14:00 Sputum Gram Stain - Final Complete 09/10/19 14:00 Sputum Sputum Culture - Final NORMAL UPPER RESPIRATORY BARB PRESENT Complete 09/11/19 12:00 Urine,Clean Catch Urine Culture - Preliminary Resulted Laboratory Tests Test 09/12/19 12:30 09/13/19 04:00 Vancomycin Level Trough 12.8 ug/mL (5.0-12.0) H White Blood Count 15.7 K/UL (4.8-10.8) H Red Blood Count 5.09 M/UL (4.70-6.10) Hemoglobin 13.5 G/DL (14.2-18.0) L Hematocrit 41.7 % (42.0-52.0) L Mean Corpuscular Volume 82 FL (80-99) Mean Corpuscular Hemoglobin 26.6 PG (27.0-31.0) L Mean Corpuscular Hemoglobin Concent 32.5 G/DL (32.0-36.0) Red Cell Distribution Width 12.7 % (11.6-14.8) Platelet Count 283 K/UL (150-450) Mean Platelet Volume 7.5 FL (6.5-10.1) Neutrophils (%) (Auto) 74.3 % (45.0-75.0) Lymphocytes (%) (Auto) 15.8 % (20.0-45.0) L Monocytes (%) (Auto) 5.2 % (1.0-10.0) Eosinophils (%) (Auto) 3.7 % (0.0-3.0) H Basophils (%) (Auto) 1.1 % (0.0-2.0) Sodium Level 144 MMOL/L (136-145) Potassium Level 3.8 MMOL/L (3.5-5.1) Chloride Level 103 MMOL/L (98-107) Carbon Dioxide Level 37 MMOL/L (21-32) H Anion Gap 4 mmol/L (5-15) L Blood Urea Nitrogen 11 mg/dL (7-18) Creatinine 0.9 MG/DL (0.55-1.30) Estimat Glomerular Filtration Rate > 60 mL/min (>60) Glucose Level 109 MG/DL (74-106) H Calcium Level 9.6 MG/DL (8.5-10.1) Total Bilirubin 0.2 MG/DL (0.2-1.0) Aspartate Amino Transf (AST/SGOT) 24 U/L (15-37) Alanine Aminotransferase (ALT/SGPT) 40 U/L (12-78) Alkaline Phosphatase 93 U/L (46-116) Total Protein 7.3 G/DL (6.4-8.2) Albumin 2.9 G/DL (3.4-5.0) L Globulin 4.4 g/dL Albumin/Globulin Ratio 0.7 (1.0-2.7) L Current Medications Medications (Trade) Dose Ordered Sig/Tamara Route PRN Reason Start Time Stop Time Status Last Admin Dose Admin Acetaminophen (Tylenol) 650 mg Q6H PRN ORAL Mild Pain/Temp > 100.5 09/13/19 09:51 10/13/19 09:50 Cefepime HCl 2 gm/ Dextrose 55 ml @ 110 mls/hr Q8H IVPB 09/12/19 09:00 09/19/19 08:59 09/13/19 08:53 Chlorhexidine Gluconate (Zora-Hex 2%) 1 applic DAILY@2000 TOPIC 09/10/19 20:00 10/10/19 19:59 09/12/19 20:08 Heparin Sodium (Porcine) (Heparin 5000 units/ml) 5,000 units EVERY 12 HOURS SUBQ 09/09/19 09:00 10/24/19 08:59 09/13/19 08:53 Morphine Sulfate (Morphine Sulfate) 2 mg Q4H PRN IVP Breakthrough pain 09/12/19 21:00 09/19/19 20:59 09/13/19 06:35 Morphine Sulfate (Morphine Sulfate) 4 mg Q4H PRN IVP PAIN 4-10 09/09/19 09:00 09/16/19 08:59 09/12/19 08:13 Ondansetron HCl (Zofran) 4 mg Q6H PRN IVP Nausea & Vomiting 09/09/19 09:00 10/09/19 08:59 09/13/19 09:19 Pantoprazole (Protonix) 40 mg DAILY IVP 09/09/19 09:30 10/09/19 09:29 09/13/19 08:52 Vancomycin HCl (Vanco rx to dose) 1 ea DAILY PRN MISC Per rx protocol 09/10/19 20:00 10/10/19 19:59 Vancomycin/Sodium Chloride 275 ml @ 137.5 mls/ hr Q8H IVPB 09/12/19 15:00 09/17/19 14:59 09/13/19 06:01 Marty Rosales MD Sep 13, 2019 12:02
[2019-09-13] MEDS ORDERED: LEVAQUIN500 MG ORAL (13:01)
--- NOTE | 2019-09-13 13:08 | Discharge Summary ---
Discharge Summary Hospital Course Date of Admission Sep 08, 2019 at 21:15 Date of Discharge 09/13/19 Admitting Diagnosis respiratory failure HPI Frankie Fournier is a 24 year old male who was admitted on Sep 08, 2019 at 21: 15 for Respiratory Distress Consultations Pulm,ID Procedures None Hospital Course Mr. Fournier is a 24 year old M w/ hx of asthma, morbid obesity, KRISTIAN, presenting with weakness, respiratory failure, and pneumonia. Patient was intubated for acute hypoxic and hypercapnic resp failure and admitted to ICU. He was seen by Pulm and ID, started on broad spectrum abx for suspected pneumonia. Covid19 was ruled out and he was rapidly extubated. He was cleared for discharge, will be on Levaquin fir 5 more days. Instructed to avoid substance abuse. #Acute hypoxic, hypercapneic respiratory failure, requiring intubation. #Severe sepsis #Pneumonia #COVID-19 ruled out #SUSAN #Morbid obesity #Presumed KRISTIAN #Presumed obesity hypoventilation syndrome #Substance abuse I spent 35 minutes on this patient's case which included coordination with RN, case reviewer and consulting MDs Discharge Medications New Medications: Levofloxacin* (Levaquin*) 500 Mg Tablet 500 MG ORAL DAILY for 5 Days, #5 TAB Continued Medications: Albuterol Sulfate* (Albuterol Sulfate Hhn*) 2.5 Mg/3 Ml Vial.neb 3 ML INH Q6H PRN for Shortness of Breath, #30 EA 0 Refills (This prescription has been renewed) Methocarbamol* (Robaxin-500*) 500 Mg Tablet 500 MG ORAL TID, #10 TAB 0 Refills Discharge Condition Upon Discharge: improving Discharge Vital Signs Last Vital Signs Date Time Temp Pulse Resp B/P (MAP) Pulse Ox O2 Delivery O2 Flow Rate FiO2 09/13/19 12:00 98.2 84 15 118/54 (75) 97 09/13/19 12:00 Nasal Cannula 3.0 Nasal Cannula 3.0 09/13/19 07:55 32 Discharge Disposition Patient was discharged to home Discharge Diagnoses: (1) Respiratory failure Spencer Hall MD Sep 13, 2019 13:08
--- NOTE | 2019-09-13 13:15 | NUR ---
PUBLIC INFORMATION COORDINATORBOOK STORE ASSOCIATE SI: RESP FAILURE S/P EXTUBATION, PNA T. 97.4 HR 78 RR 21 B/P 137/63 WBC 15.7 CO2 37 IS: CEFEPIME IV PROTONIX IV HEPARIN SUBC COVID-19 PENDING DROPLET ISOLATION ICU STATUS
--- NOTE | 2019-09-13 13:22 | NUR ---
NURSE NOTES: Patient requested to speak to Shoe Treer prior to discharge. field ironworker was contacted and informed.
--- NOTE | 2019-09-13 13:47 | NUR ---
TICKETER NOTE SW met w/ pt for DC planning. BRIAN discussed the case w/ assigned RN that MD cleared pt for discharge w/o any necessary F/U. Pt was requesting recuperative care as DC placement. BRIAN informed pt that he does not meet the criteria for RC as MD did not recommend pt to F/U w/ his treated medical condition. Pt was frustrated that SW was unable to place pt at . Per pt, his family will move to section 8 housing on 09/26/2019. Pt's mother has pt's car at this time. BRIAN recommended pt to consider an independent living facility for 2 weeks until he moves in. BRIAN provided the community resource packet including the list of independent living facilities. SW explained negative ramification of unlicensed facilities. Pt reported his uncle resides in a sober living facility, thus he is familiar w/ such type of facility. SW encouraged pt to contact various facilities. Meanwhile, pt shared that his mother will bring his car upon DC. Pt did not disclose his dc location. PT denies SI/HI. SW offered meals and clothing but pt refused. Pt is ambulatory and independent w/ ADLs. All information was relayed to assigned RN. Signed: 09/13/19 at 1358 by ANA LILIA TORRES <Co-Signature Required>
--- NOTE | 2019-09-13 14:29 | NUR ---
NURSE NOTES: Patient spoke to socially responsible investment adviser, denied placement offered by socially responsible investment adviser. Patient requested to speak to MD prior to being discharged. Dr. Garza notified.
--- NOTE | 2019-09-13 15:32 | NUR ---
*-* INSURANCE *-* ALL CLINICALS AND REVIEWS HAVE BEEN FAXED TO: [facility] FAX NOTIFICATIONS AND CLINICALS TO: [phone]
[2019-09-13] MEDS ORDERED: NS 275ml ONE (15:59)
[2019-09-13] MEDS ORDERED: Tubing IV Secondary IV ONE (15:59)
--- NOTE | 2019-09-13 16:00 | NUR ---
Homeless Discharge: Patient is being discharged from medical care. Awake, alert and oriented x4. After care instructions, including referral to community resources were given. Patient verbalized understanding of After care instructions; at this time patient does not request equipment or placement. Patient signed patient consent in the medical record for patient destination upon discharge. All medical devices such as IV and ID band were removed. Patient wheel chaired out with all personal belongings with steady gait into private vehicle with mother.
--- NOTE | 2019-09-19 04:45 | NUR ---
Note angeloone in EDM - 09/19/19 at 0801 by ALBERT ED Nurse Note: Pt has RASS score of -2, propofol continuing at same dose of 30mcg, pt is tolerating well, no need to titrate, o2 sat recorded and v/s, IV site patent, pt suctioned prn and repositioned with pillow support as tolerated every 2 hours, will continue meds and close monitoring.
[2019-09-19 06:45] VITALS: BP 156/96
== END 2019-09-13 16:00 | disposition home or self-care (01) | DRG 720 ==
LOC: EMR 20:25 → 2W 21:15 → EDBEDREQ 21:48 → ICU 23:30
PROC: 5A1945Z Respiratory Ventilation, 24-96 Consecutive Hours (ICD-10-PCS; principal; 2019-09-08)
DX: A41.9 Sepsis, unspecified organism (principal); J96.01 Acute respiratory failure with hypoxia; J96.02 Acute respiratory failure with hypercapnia; E66.01 Morbid (severe) obesity due to excess calories; Z68.42 Body mass index [BMI] 45.0-49.9, adult; J18.9 Pneumonia, unspecified organism; R65.20 Severe sepsis without septic shock; G47.33 Obstructive sleep apnea (adult) (pediatric); J80 Acute respiratory distress syndrome; F15.10 Other stimulant abuse, uncomplicated; F14.10 Cocaine abuse, uncomplicated; F12.10 Cannabis abuse, uncomplicated; Z59.0 Homelessness; E87.6 Hypokalemia
CPT/HCPCS: 31500; 36415; 36600; 71045; 80048; 80053; 80202; 80307; 81003; 82803; 83605; 83690; 83735; 84478; 85007; 85025; 86703; 86710; 87040; 87070; 87081; 87086; 87181; 87205; 87420; 93005; 94002; 94003; 94664; 96361; 96365; 96367; 96375; 99291; 99292; J2405; J2765; J7030; J7620; J8499